=== PATIENT | female | born 1950 | race Caucasian/White ===

== ENCOUNTER 2022-10-28 07:05 | Emergency (ER) | payer MEDICARE, SELFPAY ==
[2022-10-28] VITALS (30 sets, daily range): BP systolic 142–188; BP diastolic 70–98; PULSE 75–135; RESP 12–68; TEMP 36.4; O2SAT 94–100; BMI 27.8
--- NOTE | 2022-10-28 07:54 | ECG_ITS ---
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
--- NOTE | 2022-10-28 07:57 | ED.GENADUL1 ---
HPI - General Adult General Chief complaint: Upper Respiratory Infection Stated complaint: CHEST PAIN/SOB Time Seen by Provider: 10/28/22 07:47 Source: patient Source information: patient Mode of arrival: walk-in Limitations: no limitations History of Present Illness HPI narrative: Patient is a 72-year-old female who is presenting to the Emergency Room today with chief complaint of cough, congestion, not feeling well since last Wednesday or Wednesday. Patient is a smoker, patient smokes one pack of cigarettes a day. Patient has a long-standing history of smoking 2 packs of cigarettes a day. Patient's PCP is in [place]. Patient son is at bedside. Pattient also has a history of anxiety, patient takes Xanax at nighttime, and just started taking Remeron during the day. Patient also has recently been prescribed inhaler from her PCP. Patient does not have a lung doctor. Patient was placed on 5 day course of steroids from approximate Wednesday until today, she took her last dose of steroids today. Patient has mild left-sided chest tightness, she believes is more muscle secondary to coughing. Patient has no sinus pressure, no headache. Patient has no neck pain. Patient has mild nausea from steroids this morning, patient had no vomiting. No diarrhea. No recent traveling. Patient does not wear oxygen at home. No other acute complaints. . All systems are negative except as noted/marked. All systems reviewed and otherwise negative. . Nurses note and vital signs reviewed and patient is not hypoxic. General: The patient appears well and in no apparent distress. Patient is resting comfortably on cart. Patient is not toxic, lethargic, or listless Skin: Warm, dry, no pallor noted. There is no rash noted. No petechiae, purpura. Head: Normocephalic, atraumatic Eye: Normal conjunctiva, no drainage, EOMI. PERRL Ears, Nose, Mouth, and Throat: oral mucosa is moist. Nares patent. Mouth without vesicles. Cardiovascular: Regular Rate and Rhythm, no murmur, gallop, rub Respiratory: Patient is in no distress, no accessory muscle use, lungs Decreased Bilateral, decreased breath sounds more on the left compared to the right. Diffuse wheezing, poor inspiratory effort bilateral. Back: non-tender, no CVA tenderness bilaterally to percussion. No CT LS midline pain GI: soft, no tenderness to palpation, no masses appreciated. No rebound, guarding, or rigidity noted. No flank pain bilateral, No distention Musculoskeletal: Patient has full range of motion of all of the extremities, no motor, sensory, or focal neurological deficits Neurological: A&O x3, normal speech Psychiatric: Cooperative Related Data Home Medications Medication Instructions Recorded Confirmed alprazolam 0.5 mg tablet 0.25 mg PO BID PRN anxiety 10/28/22 10/28/22 mirtazapine 15 mg tablet 15 mg PO BEDTIME 10/28/22 10/28/22 Previous Rx's Medication Instructions Recorded albuterol sulfate 90 mcg/actuation 2 inh inhalation Q4H PRN shortness 10/28/22 breath activated powder inhaler of breath or wheezing #1 ea benzonatate 100 mg capsule 100 mg PO TID PRN cough #21 caps 10/28/22 doxycycline hyclate 100 mg tablet 100 mg PO BID 10 days #20 tabs 10/28/22 Allergies Allergy/AdvReac Type Severity Reaction Status Date / Time codeine Allergy Intermediate Verified 10/28/22 07:44 PFSH PFSH Social History Smoking status: Current every day smoker Exam Constitutional Vital Signs, click to edit/add: Last Vital Signs Temp 97.5 F L 10/28/22 07:12 Pulse 110 H 10/28/22 11:20 Resp 15 10/28/22 11:20 BP 150/70 H 10/28/22 09:45 Pulse Ox 95 10/28/22 11:20 O2 Del Method Nasal Cannula 10/28/22 07:54 O2 Flow Rate 2 10/28/22 07:54 Course Vital Signs Vital signs: Vital Signs Temperature 97.5 F L 10/28/22 07:12 Pulse Rate 75 10/28/22 07:12 Respiratory Rate 16 10/28/22 07:12 Blood Pressure 188/98 H 10/28/22 07:12 Pulse Oximetry 95 10/28/22 07:12 Oxygen Delivery Method Room Air 10/28/22 07:12 Temperature 97.5 F L 10/28/22 07:12 Pulse Rate 110 H 10/28/22 11:20 Respiratory Rate 15 10/28/22 11:20 Blood Pressure 150/70 H 10/28/22 09:45 Pulse Oximetry 95 10/28/22 11:20 Oxygen Delivery Method Nasal Cannula 10/28/22 07:54 Oxygen Delivery Flow Rate 2 10/28/22 07:54 Medical Decision Making MDM Narrative Medical decision making narrative: Patient was initially given 2 DuoNeb times. Patient is breathing better now than what she was when she initially arrived. Patient was given a dose of Solu-Medrol and magnesium 2 g over 15 minutes. Patient just finished 5 day course of prednisone as well. Patient was due to have a CT of her chest on Wednesday, CTA chest was done today CT of the chest shows infectious versus inflammatory changes the right lower lobe, nothing acute, no PE. Patient's laboratory shows no acute changes. Patient felt better initially after 2 DuoNeb breathing treatments were given. Patient requested a prescription for Tessalon Perles, she was given a albuterol inhaler. Patient was also placed on doxycycline secondary to her age, being a smoker, and also having history of chronic obstructive pulmonary disease. Patient is on another type of inhaler, patient does not know when her son at bedside cannot find out what the name of it was. Patient understands importance of using inhaler every 4 hours. Patient may also have a metered steroid inhaler, this was prescribed by her PCP. No questions at discharge Lab Data Labs: Lab Results 10/28/22 Range/Units 07:20 WBC 8.6 (4.0-11.0) 10^3/uL RBC 5.40 (4.20-5.40) 10^6/uL Hgb 12.2 (12.0-16.0) g/dL Hct 39.2 (36.0-48.0) % MCV 72.6 L (81.0-99.0) fL MCH 22.6 L (26.7-34.0) pg MCHC 31.1 (29.9-35.2) g/dL RDW 16.3 H (11.0-15.0) % Plt Count 125 L (150-450) 10^3/uL MPV 10.9 (9.5-13.5) fL Neut % (Auto) 68.6 (43.0-75.0) % Lymph % (Auto) 19.8 L (20.5-60.0) % [place] % (Auto) 8.9 (1.7-12.0) % Eos % (Auto) 1.3 (0.9-7.0) % Baso % (Auto) 0.9 (0.2-2.0) % Neut # (Auto) 5.9 (1.4-6.5) 10^3/uL Lymph # (Auto) 1.7 (1.2-3.8) 10^3/uL [place] # (Auto) 0.8 (0.3-0.8) 10^3/uL Eos # (Auto) 0.1 (0.0-0.7) 10^3/uL Baso # (Auto) 0.1 (0.0-0.1) 10^3/uL Abs Immat Gran (auto) 0.04 H (0.00-0.03) 10^3/uL Imm/Tot Granulo (auto) 0.5 (0.0-0.5) % Sodium 137 (136-145) mmol/L Potassium 3.7 (3.5-5.1) mmol/L Chloride 102 (98-107) mmol/L Carbon Dioxide 29.0 (21.0-32.0) mmol/L Anion Gap 9.7 BUN 17.0 (7.0-18.0) mg/dL Creatinine 0.60 (0.55-1.02) mg/dL Est GFR ( Amer) >60 (>=60) Est GFR (Non-Af Amer) >60 (>=60) BUN/Creatinine Ratio 28.3 Glucose 107 H (74-106) mg/dL Calcium 8.6 (8.5-10.1) mg/dL Total Bilirubin 0.3 (0.2-1.0) mg/dL AST 61 H (15-37) U/L ALT 94 H (14-59) U/L Alkaline Phosphatase 148 H (46-116) U/L Troponin I High Sens 10.8 (4.0-51.3) pg/mL NT-Pro-B Natriuret Pep 234.0 (<=900.0) pg/mL Total Protein 7.6 (6.4-8.2) g/dL Albumin 3.4 (3.4-5.0) g/dL Globulin 4.2 g/dL Albumin/Globulin Ratio 0.8 SARS-CoV-2 (PCR) Negative (NEGATIVE) ECG Data Attestation: I personally reviewed and interpreted this ECG as follows: Interpretation: EKG interpretation. Sinus tachycardia at 108. Normal axis deviation. Sinus arrhythmia. QTC of 405. Affect noted secondary to breathing Discharge Plan Discharge Chief Complaint: Upper Respiratory Infection Clinical Impression: Upper respiratory infection, Tobacco abuse, COPD exacerbation, Bronchitis Patient Disposition: Home, Self-Care Condition: Fair Prescriptions / Home Meds: New albuterol sulfate 90 mcg/actuation aerosol powdr breath activated 2 inh inhalation Q4H PRN (Reason: shortness of breath or wheezing) Qty: 1 0RF benzonatate 100 mg capsule 100 mg PO TID PRN (Reason: cough) Qty: 21 0RF doxycycline hyclate 100 mg tablet 100 mg PO BID 10 Days Qty: 20 0RF No Action alprazolam 0.5 mg tablet 0.25 mg PO BID PRN (Reason: anxiety) mirtazapine 15 mg tablet 15 mg PO BEDTIME Instructions: How to Stop Smoking (ED), Upper Respiratory Infection (ED), Acute Bronchitis (ED), How to Use a Dry-Powder Inhaler (ED), COPD (Chronic Obstructive Pulmonary Disease) (ED), Chronic Bronchitis (ED) Additional Instructions: Patient is to use DayQuil, NyQuil, Flonase to help dry up sinuses. Use albuterol inhaler every 4 hours while awake. Start taking antibiotics Secondary to age, smoker, and length of symptoms for over a week. Follow-up with your PCP, you may need to be referred to lung specialist as well. Dr Jones Stand Alone Forms: Portal Instructions Referrals: Art Jones DO [Physician] - 1 week Physician,Non-Staff, MD [Primary Care Provider] - 1 week
[2022-10-28] MEDS: IPRATROPIUM/ALBUTEROL SULFATE 3 ML AMPUL.NEB 6 ML IH (08:02)
[2022-10-28 08:16] LABS: Basophils Absolute Auto 0.1 10^3/uL (0.0-0.1); Basophils Percent Auto 0.9 % (0.2-2.0); Eosinophils Absolute Auto 0.1 10^3/uL (0.0-0.7); Eosinophils Percent Auto 1.3 % (0.9-7.0); Hematocrit 39.2 % (36.0-48.0); Hemoglobin 12.2 g/dL (12.0-16.0); Immature Granulocytes Abs Auto 0.04 10^3/uL (0.00-0.03); Immature Granulocytes Pct Auto 0.5 % (0.0-0.5); Lymphocytes Absolute Auto 1.7 10^3/uL (1.2-3.8); Lymphocytes Percent Auto 19.8 % (20.5-60.0); Mean Corpuscular HGB Conc 31.1 g/dL (29.9-35.2); Mean Corpuscular Hemoglobin 22.6 pg (26.7-34.0); Mean Corpuscular Volume 72.6 fL (81.0-99.0); Mean Platelet Volume 10.9 fL (9.5-13.5); Monocytes Absolute Auto 0.8 10^3/uL (0.3-0.8); Monocytes Percent Auto 8.9 % (1.7-12.0); Neutrophils Absolute Auto 5.9 10^3/uL (1.4-6.5); Neutrophils Percent Auto 68.6 % (43.0-75.0); Platelet Count 125 10^3/uL (150-450); Red Cell Distribution Width 16.3 % (11.0-15.0); White Blood Count 8.6 10^3/uL (4.0-11.0)
[2022-10-28] MEDS: ASPIRIN 81 MG TAB.CHEW 162 MG PO (08:21)
[2022-10-28] MEDS: KETOROLAC TROMETHAMINE 30 MG/ML VIAL 15 MG IVP (08:22)
[2022-10-28] MEDS: METHYLPREDNISOLONE SOD SUCC PF 125 MG/2 ML VIAL IVP (08:22)
[2022-10-28] MEDS: ONDANSETRON PF 4 MG/2 ML VIAL IV (08:22)
[2022-10-28] MEDS: 0.9 % SODIUM CHLORIDE 1,000 ML 999 ML IV (08:24)
[2022-10-28 08:38] LABS: Alanine Aminotransferase 94 U/L (14-59); Albumin Globulin Ratio 0.8; Albumin Level 3.4 g/dL (3.4-5.0); Alkaline Phosphatase 148 U/L (46-116); Anion Gap 9.7; Aspartate Amino Transferase 61 U/L (15-37); BUN Creatinine Ratio 28.3; Bilirubin Total 0.3 mg/dL (0.2-1.0); Calcium 8.6 mg/dL (8.5-10.1); Chloride 102 mmol/L (98-107); Estimated GFR (African America >60 (>=60); Estimated GFR (Non-African Ame >60 (>=60); Globulin 4.2 g/dL; Glucose 107 mg/dL (74-106); Potassium 3.7 mmol/L (3.5-5.1); Sodium 137 mmol/L (136-145); Total Protein 7.6 g/dL (6.4-8.2); Troponin I High Sensitivity 10.8 pg/mL (4.0-51.3)
[2022-10-28 09:10] LABS: SARS-CoV-2 Ag NEGATIVE (NEGATIVE)
--- NOTE | 2022-10-28 09:10 | CT_ITS ---
The [address] [address] Patient Name: TORIE ERVIN MRN: [id number] date: 1950 Sex: F Assigned Patient Location: ER Current Patient Location: ER Accession/Order Number: [id number] Exam Date: 10/28/2022 08:58 Report Date: 10/28/2022 09:36 At the request of: MARQUITA ESTRADA Procedure: CT angio chest CT angio chest, 10/28/2022 8:58 AM EDT INDICATION: Dyspnea. COMPARISON: Radiograph of the chest 07/01/2021, CT angiography of the chest 01/24/2016 TECHNIQUE: Axial images of the chest were obtained with administration of IV contrast. Multiplanar reformatted, MIP and 3D images were generated and reviewed as needed. Dose reduction techniques were achieved by using automated exposure control and/or adjustment of mA and/or kV according to patient size and/or use of iterative reconstruction technique. FINDINGS: Heart size within normal limits. RV/LV ratio normal. No pericardial effusion. No aortic aneurysm or dissection. No filling defect within the pulmonary arteries. The great vessels are unremarkable. No mediastinal, hilar or axillary lymphadenopathy. Diffuse bronchial wall thickening with scattered areas of subsegmental atelectasis bilaterally with increased conspicuity in the right upper lobe. Mosaic attenuation with subpleural consolidation at the right lung base. No pleural effusion. No pneumothorax. Small sliding hiatal hernia. The spleen is 14 cm in AP dimension, previously 16.3 cm. The visualized upper abdomen is otherwise grossly unremarkable. No acute fracture or dislocation. CT/CT angio chest IMPRESSION: 1. No pulmonary embolism. 2. Infectious versus inflammatory bronchiolitis with findings of reactive airway disease within the right lower lobe. 3. Interval improvement in splenomegaly. Electronically authenticated by: DAGO LOZADA Date: 10/28/2022 09:36
[2022-10-28] MEDS: LORAZEPAM 2 MG/ML 1 ML VIAL 1 MG IV (10:13)
[2022-10-28 15:53] LABS: SARS-CoV-2 NAA NOT DETECTED (NOT DETECTE)
== END 2022-10-28 11:41 | disposition home or self-care (01) ==
PROVIDERS: Emergency Provider Emergency Medicine
DX: J44.1 Chronic obstructive pulmonary disease with (acute) exacerbation (principal); J06.9 Acute upper respiratory infection, unspecified; F17.210 Nicotine dependence, cigarettes, uncomplicated; R06.2 Wheezing; F41.9 Anxiety disorder, unspecified; Z79.899 Other long term (current) drug therapy; Z20.822 Contact with and (suspected) exposure to COVID-19
CPT/HCPCS: 36415; 71275; 80053; 83880; 84484; 85025; 87635; 87811; 93005; 94640; 96365; 96375; 99285; 99406; J2930; Q9967

== ENCOUNTER 2023-02-19 21:48 | Emergency (ER) | payer MEDICARE, SELFPAY ==
[2023-02-19 22:04] VITALS: BP 188/92; PULSE 92; RESP 20; TEMP 36.7; O2SAT 97; BMI 27.7
--- NOTE | 2023-02-19 22:59 | ECG_ITS ---
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
--- NOTE | 2023-02-19 23:01 | ED_ITS ---
HPI - General Adult General Chief complaint: Dizziness Stated complaint: BACK PAIN, JAW PAIN, DIZZINESS Time Seen by Provider: 02/19/23 22:00 Source: patient Mode of arrival: walk-in Limitations: no limitations History of Present Illness HPI narrative: Patient woke with imbalance and the sensation of spinning. She said that is has waxed and waned today. She also had an episode around 1 or 2pm that lasted about 30 minutes consisting of pain in the upper abdomen, pain in both sides of the jaw and nausea. She did not vomit and denied chest pain, pressure or tightness and denied shortness of breath. No fever or chills. No flank pain or urinary symptoms. she told me that she had previously experienced dizziness and vertigo-type symptoms. She said that she had extensive workup and was told it was from her anxiety and not from vertigo. On the other hand, she told me that when she is coming to Hospital the past and received antivertigo medication the symptoms have improved. I presume she is talking about meclizine. Related Data Home Medications Medication Instructions Recorded Confirmed alprazolam 0.5 mg tablet 0.25 mg PO BID PRN anxiety 10/28/22 02/19/23 mirtazapine 15 mg tablet 15 mg PO BEDTIME 10/28/22 02/19/23 Previous Rx's Medication Instructions Recorded meclizine 25 mg tablet 25 mg PO TID PRN dizziness #20 tabs 02/19/23 ondansetron 4 mg disintegrating 4 mg PO Q6H PRN nausea and 02/19/23 tablet vomiting #20 tabs Allergies Allergy/AdvReac Type Severity Reaction Status Date / Time codeine Allergy Intermediate Verified 10/28/22 07:44 PFSH PFS Social History Smoking status: Current every day smoker Exam Narrative Exam Narrative: Nurses notes and vital signs reviewed and patient is not hypoxic. afebrile General: Well-appearing and in no apparent distress. Skin: Warm, dry, no pallor noted. Head: Normocephalic, atraumatic. Neck: Supple, non-tender. Eye: Pupils are equal, round and EOMI. No scleral icterus. no nystagmus. Ears, Nose, Mouth, and Throat: TM are clear, no nasal mucosal hypertrophy. Oral mucosa is moist, no posterior oropharynx erythema, uvula is mid-line Cardiovascular: Regular Rate and Rhythm without murmur, gallop or rub. Respiratory: No accessory muscle use or respiratory distress. Lungs are clear to auscultation, no wheezing, rales or rhonchi Back: No CVA tenderness Musculoskeletal: normal ROM, no calf or popliteal tenderness, no lower extremity edema/swelling GI: Abdomen is soft, non-distended. Normal bowel sounds. No masses appreciated. No tenderness to palpation. No rebound, guarding, or rigidity noted. Neurological: A&O x4. No cranial nerve dysfunction observed. No truncal at axia. Moves all extremities. Sensation intact. Psychiatric: Cooperative and interactive. Normal mood and affect. Constitutional Vital Signs, click to edit/add: Last Vital Signs Temp 98.1 F 02/19/23 22:04 Pulse 92 H 02/19/23 22:04 Resp 20 02/19/23 22:04 BP 188/92 H 02/19/23 22:04 Pulse Ox 97 02/19/23 22:04 O2 Del Method Room Air 02/19/23 22:04 Course Vital Signs Vital signs: Vital Signs Temperature 98.1 F 02/19/23 22:04 Pulse Rate 92 H 02/19/23 22:04 Respiratory Rate 20 02/19/23 22:04 Blood Pressure 188/92 H 02/19/23 22:04 Pulse Oximetry 97 02/19/23 22:04 Oxygen Delivery Method Room Air 02/19/23 22:04 Temperature 98.1 F 02/19/23 22:04 Pulse Rate 92 H 02/19/23 22:04 Respiratory Rate 20 02/19/23 22:04 Blood Pressure 188/92 H 02/19/23 22:04 Pulse Oximetry 97 02/19/23 22:04 Oxygen Delivery Method Room Air 02/19/23 22:04 Medical Decision Making MDM Narrative Medical decision making narrative: Patient was placed on cardiac cath lab radiology technologist and EKG obtained. Blood drawn and sent for evaluation. urine also obtained sent for testing. she was given meclizine and Zofran in the emergency department. Normal WBC, Hb slightly decreased at 10 compared with 12 on prior testing. UA negative. Slightly elevated AST and AP with normal bili, normal renal function. K slightly decreased at 3.3 - patient give oral potassium. Troponin negative. EKG without worrisome findings. Patient felt better after ED treatment and was discharged home with prescriptions for meclizine and zofran in case the symptoms returned.. Lab Data Lab results reviewed: Yes I reviewed the patient's lab results Labs: Lab Results 02/19/23 02/19/23 Range/Units 22:16 22:40 WBC 4.9 (4.0-11.0) 10^3/uL RBC 4.75 (4.20-5.40) 10^6/uL Hgb 10.8 L (12.0-16.0) g/dL Hct 36.3 (36.0-48.0) % MCV 76.4 L (81.0-99.0) fL MCH 22.7 L (26.7-34.0) pg MCHC 29.8 L (29.9-35.2) g/dL RDW 15.9 H (11.0-15.0) % Plt Count 167 (150-450) 10^3/uL MPV 10.4 (9.5-13.5) fL Neut % (Auto) 52.8 (43.0-75.0) % Lymph % (Auto) 28.4 (20.5-60.0) % [place] % (Auto) 13.7 H (1.7-12.0) % Eos % (Auto) 3.7 (0.9-7.0) % Baso % (Auto) 1.2 (0.2-2.0) % Neut # (Auto) 2.6 (1.4-6.5) 10^3/uL Lymph # (Auto) 1.4 (1.2-3.8) 10^3/uL [place] # (Auto) 0.7 (0.3-0.8) 10^3/uL Eos # (Auto) 0.2 (0.0-0.7) 10^3/uL Baso # (Auto) 0.1 (0.0-0.1) 10^3/uL Abs Immat Gran (auto) 0.01 (0.00-0.03) 10^3/uL Imm/Tot Granulo (auto) 0.2 (0.0-0.5) % Sodium 140 (136-145) mmol/L Potassium 3.3 L (3.5-5.1) mmol/L Chloride 105 (98-107) mmol/L Carbon Dioxide 31.5 (21.0-32.0) mmol/L Anion Gap 6.8 BUN 7.0 (7.0-18.0) mg/dL Creatinine 0.74 (0.55-1.02) mg/dL Est GFR ( Amer) >60 (>=60) Est GFR (Non-Af Amer) >60 (>=60) BUN/Creatinine Ratio 9.5 Glucose 106 (74-106) mg/dL Calcium 8.5 (8.5-10.1) mg/dL Total Bilirubin 0.3 (0.2-1.0) mg/dL AST 43 H (15-37) U/L ALT 36 (14-59) U/L Alkaline Phosphatase 154 H (46-116) U/L Troponin I High Sens 14.6 (4.0-51.3) pg/mL Total Protein 7.3 (6.4-8.2) g/dL Albumin 3.2 L (3.4-5.0) g/dL Globulin 4.1 g/dL Albumin/Globulin Ratio 0.8 Urine Color Lt. yellow (YELLOW) Urine Clarity Clear (CLEAR) Urine pH 6.5 (5.0-9.0) Ur Specific [place] <=1.005 A (1.005-1.025) Urine Protein Negative (NEG/TRACE) mg/dL Urine Glucose (UA) Negative (NEGATIVE) mg/dL Urine Ketones Negative (NEGATIVE) mg/dL Urine Occult Blood Negative (NEGATIVE) Urine Nitrite Negative (NEGATIVE) Urine Bilirubin Negative (NEGATIVE) Urine Urobilinogen 0.2 (0.2-1.0) EU/dL Ur Leukocyte Esterase Negative (NEGATIVE) ECG Data Attestation: I personally reviewed and interpreted this ECG as follows: Interpretation: EKG interpretation: Emergency Department physician interpretation. Normal sinus rhythm at 89bpm. Normal axis, normal intervals and no ST segment elevation or depression. Discharge Plan Discharge Chief Complaint: Dizziness Clinical Impression: Dizziness, Acute hypokalemia Patient Disposition: Home, Self-Care Time of Disposition Decision: 23:43 Prescriptions / Home Meds: New ondansetron 4 mg tablet,disintegrating 4 mg PO Q6H PRN (Reason: nausea and vomiting) Qty: 20 0RF meclizine 25 mg tablet 25 mg PO TID PRN (Reason: dizziness) Qty: 20 0RF No Action alprazolam 0.5 mg tablet 0.25 mg PO BID PRN (Reason: anxiety) mirtazapine 15 mg tablet 15 mg PO BEDTIME Instructions: Hypokalemia (ED), Dizziness (ED) Stand Alone Forms: Portal Instructions Referrals: Physician,Non-Staff, MD [Primary Care Provider] - 1 week Discharge Date/Time: 02/20/23 00:02
[2023-02-19] MEDS: ONDANSETRON 4 MG RAPDIS TABLET SL (23:09)
[2023-02-19] MEDS: MECLIZINE HCL 12.5 MG TABLET 25 MG PO (23:09)
[2023-02-19 23:11] LABS: Bilirubin Urine NEGATIVE (NEGATIVE); Blood Urine NEGATIVE (NEGATIVE); Clarity Urine CLEAR (CLEAR); Color Urine LT. YELLOW (YELLOW); Glucose Urine UA NEGATIVE (NEGATIVE); Ketones Urine NEGATIVE (NEGATIVE); Leukocyte Esterase Urine NEGATIVE (NEGATIVE); Nitrite Urine NEGATIVE (NEGATIVE); Protein Urine NEGATIVE (NEG/TRACE); Specific Gravity Urine <=1.005 (1.005-1.025); Urobilinogen Urine 0.2 EU/dL (0.2-1.0); pH Urine 6.5 (5.0-9.0)
[2023-02-19 23:11] LABS: Basophils Absolute Auto 0.1 10^3/uL (0.0-0.1); Basophils Percent Auto 1.2 % (0.2-2.0); Eosinophils Absolute Auto 0.2 10^3/uL (0.0-0.7); Eosinophils Percent Auto 3.7 % (0.9-7.0); Hematocrit 36.3 % (36.0-48.0); Hemoglobin 10.8 g/dL (12.0-16.0); Immature Granulocytes Abs Auto 0.01 10^3/uL (0.00-0.03); Immature Granulocytes Pct Auto 0.2 % (0.0-0.5); Lymphocytes Absolute Auto 1.4 10^3/uL (1.2-3.8); Lymphocytes Percent Auto 28.4 % (20.5-60.0); Mean Corpuscular HGB Conc 29.8 g/dL (29.9-35.2); Mean Corpuscular Hemoglobin 22.7 pg (26.7-34.0); Mean Corpuscular Volume 76.4 fL (81.0-99.0); Mean Platelet Volume 10.4 fL (9.5-13.5); Monocytes Absolute Auto 0.7 10^3/uL (0.3-0.8); Monocytes Percent Auto 13.7 % (1.7-12.0); Neutrophils Absolute Auto 2.6 10^3/uL (1.4-6.5); Neutrophils Percent Auto 52.8 % (43.0-75.0); Platelet Count 167 10^3/uL (150-450); Red Blood Count 4.75 10^6/uL (4.20-5.40); Red Cell Distribution Width 15.9 % (11.0-15.0); White Blood Count 4.9 10^3/uL (4.0-11.0)
[2023-02-19 23:14] LABS: Urine Microscopic Indicated NO
[2023-02-19 23:25] LABS: Alanine Aminotransferase 36 U/L (14-59); Albumin Globulin Ratio 0.8; Albumin Level 3.2 g/dL (3.4-5.0); Alkaline Phosphatase 154 U/L (46-116); Anion Gap 6.8; Aspartate Amino Transferase 43 U/L (15-37); BUN Creatinine Ratio 9.5; Bilirubin Total 0.3 mg/dL (0.2-1.0); Calcium 8.5 mg/dL (8.5-10.1); Carbon Dioxide 31.5 mmol/L (21.0-32.0); Chloride 105 mmol/L (98-107); Estimated GFR (African America >60 (>=60); Estimated GFR (Non-African Ame >60 (>=60); Globulin 4.1 g/dL; Glucose 106 mg/dL (74-106); Potassium 3.3 mmol/L (3.5-5.1); Sodium 140 mmol/L (136-145); Total Protein 7.3 g/dL (6.4-8.2)
[2023-02-19 23:28] LABS: Troponin I High Sensitivity 14.6 pg/mL (4.0-51.3)
[2023-02-19] MEDS: POTASSIUM CHLORIDE 10 MEQ ER TABLET 40 MEQ PO (23:52)
== END 2023-02-20 00:02 | disposition home or self-care (01) ==
PROVIDERS: Emergency Provider Emergency Medicine
DX: R42 Dizziness and giddiness (principal); E87.6 Hypokalemia; Z79.899 Other long term (current) drug therapy; F17.210 Nicotine dependence, cigarettes, uncomplicated
CPT/HCPCS: 36415; 80053; 81003; 84484; 85025; 93005; 99284

== ENCOUNTER 2023-05-10 21:17 | Emergency (ER) | payer MEDICARE, SELFPAY ==
--- OUTSIDE RECORDS SUMMARY | 2023-05-10 21:22 | XMS_ITS | CCD ---
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 Name Role Phone Heather Nunez Unavailable MIKE DEJESUS Primary Care Physician [facility] [place] [place] Primary Care Unavailable ORIANA DELGADO Attending Unavailable ORIANA DELGADO Consulting Unavailable ORIANA DELGADO Admitting Unavailable FRANCIS HOLDEN Admitting Unavailable MIREYA, DR ATWOOD Primary Care Unavailable FRANCIS HOLDEN Attending Unavailable FRANCIS HOLDEN Consulting Unavailable Tonya Bundy Attending Unavailable TATIANNA Amezquita Attending Provider DO Mike Dejesus Primary Care Provider [phone] DO Mike Dejesus Attending Provider MIKE DEJESUS Attending Unavailable MIKE DEJESUS Referring Unavailable MIKE DEJESUS Referring Unavailable RITCHIE AMEZQUITA Attending Unava ilable Mike Dejesus Admitting Unavailable Mike Dejesus Primary Care Unavailable Mike Dejesus Attending Unavailable Mike Dejesus Primary Care Unavailable Ric eKrr Admitting Unavailab Ric Hernandez Attending Unavailab Mike Fajardo Primary Care Unavailable Ritchie Amezquita Admitting Unavail able Ritchie Amezquita Attending Unavail able Milla Skinner Unavailable Allergies Allergy Classification Reported Allergen(s) Allergy Type Date of Onset Reaction(s) Facility (6 sources) Codeine; Translations: [codeine] Drug Allergy stomach upset, unknown [facility] (1 source) Codeine Drug Allergy 0 [facility] (1 source) Codeine Drug Allergy 2 [facility] Medications Current Medications Medication Drug Class(es) Dates Sig (Normalized) Sig (Original) ALPRAZolam 0.25 mg oral tablet (5 sources) Benzodiazepine Start: 10-02-2021 take 1 tablet by mouth every twelve hours ALPRAZolam 0.25 MG 1 tablet Orally Twice a day for 15 days f41.1 Sep, Active Start: 03-01-2019 Xanax Oral, Re fills(s) 0 Start Date: 03/01/19 Status: Ordered amLODIPine 5 mg oral tablet (1 source) Dihydropyridine Calcium Channel Heraclio take 1 tablet by mouth every twenty-four hours amLODIPine Besylate 5 MG 1 tablet Orally Once a day Active hydrOXYzine (6 sources) Antihistamine Start: 020 hydrOXYzine pamoate Oral, QID, Refills(s) 0 Start Date: 08/15/19 Status: Ordered Start: 03-01-2019 hydrOXYzine Re fills(s) 0 Start Date: 03/01/19 Status: Ordered take 1 capsule by [facility] every eight hours hydrOXYzine Pamoate 50 MG 1 capsule as needed Orally every 8 hrs for 90 Active lidocaine 0.05 mg/mg medicated patch (1 source) Antiarrhythmic, Amide Local Anesthetic Start: 05-07-2023 Lidocaine 5 % 1 patch remove after 12 hours Externally Once a day for 7 days Apr, Active methylPREDNISolone 4 mg oral tablet (1 source) Corticosteroid Start: 05-07-2023 methylPREDNISolone 4 MG as directed Orally for 6 Apr, Active mirtazapine 15 mg oral tablet (5 sources) Start: 09-02-2022 mirtazapine 15 mg Tab Refills(s) 0 Start Date: 09/02/22 Status: Ordered tiZANidine 4 mg oral tablet (1 source) Central alpha-2 Adrenergic Agonist Start: 05-07-2023 tiZANidine HCl 4 MG 1 tablet as needed Orally at bedtime for 7 days Apr, Active Vitamin B Complex oral capsule (1 source) Start: 03-01-2019 take 1 capsule by mouth once daily Vitamin B Complex oral capsule 1 cap(s), Oral, Daily Start Date: 03/01/19 Status: Ordered vitamin b12 0.5 mg oral tablet (1 source) Vitamin B12 take 1 tablet by mouth every twenty-fou r hours Vitamin B12 500 MCG 1 tablet Orally Once a day Active Vitamin B12 500 MCG (3 sources) take 1 tablet by mouth once daily Vitamin B12 500 MCG 1 tablet Orally Once a day Active Vitamin D (1 source) Start: 03-01-2019 Vitamin D Oral, Refills(s) 0 Start Date: 03/01/19 Status: Ordered Vitamin D 1000 UNIT (4 sources) take 2 tablets by mouth once daily Vitamin D 1000 UNIT 2 tablets Orally Once a day Active Completed/Discontinued Medications Medication Drug Class(es) Dates Sig (Normalized) Sig (Original) ciprofloxacin 500 mg oral tablet (4 sources) Quinolone Antimicrobial Start: 10-07-2021 take 1 tablet by mouth every twelve hours Cipro 500 MG 1 tablet Orally every 12 hrs for 5 day(s) Sep, Not-Taking/PRN Toradol 30 mg/ml (1 source) Start: 05-07-2023 Toradol 30 mg/ml Apr, 30 mg triamcinolone acetonide 40 mg/ml injectable suspension (1 source) Corticosteroid Start: 05-07-2023 Kenalog-40 Apr, 40 mg Problems Active Problems Problem Classification Problem Date Documented Date Episodic/Chronic Anxiety disorders (10 sources) Generalized anxiety disorder; Translations: [Generalized anxiety disorder] Onset: 12-09-2021 03-01-2019 Chronic Asthma (1 source) Asthma 03-01-2019 Chronic Calculus of urinary tract (2 sources) Kidney stone; Translations: [Calculus of kidney] Onset: 09-01-2022 Episodic Cardiac dysrhythmias (1 source) Palpitations; Translations: [Palpitations] Onset: 04-08-2023 Episodic Chronic obstructive pulmonary disease and bronchiectasis (4 sources) Chronic obstructive lung disease; Translations: [Chronic obstructive pulmonary disease, unspecified] Chronic Disorders of lipid metabolism (1 source) Hyperlipidemia 03-01-2019 Chronic Genitourinary congenital anomalies (4 sources) Congenital pelviureteric junction obstruction; 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] Onset: 09-01-2022 Chronic Genitourinary symptoms and ill-defined conditions (10 sources) Dysuria; Translations: [Hematuria, unspecified] Onset: 10-07-2021 Resolved: 10-07-2021 Episodic Mood disorders (4 sources) Recurrent major depressive episodes, moderate ; Translations: [Major depressive disorder, recurrent, moderate] Chronic Nutritional deficiencies (1 source) Vitamin D deficiency 03-01-2019 Chronic Nutritional deficiencies (1 source) Vitamin B deficiency 03-01-2019 Episodic Osteoarthritis (1 source) Arthritis 03-01-2019 Chronic Other diseases of kidney and ureters (1 source) Cyst of kidney 03-01-2019 Episodic Other diseases of kidney and ureters (1 source) Hydronephrosis 09-01-2022 Episodic Other diseases of kidney and ureters (1 source) Obstruction of pelviureteric junction 03-01-2019 Episodic Other diseases of kidney and ureters (1 source) Stricture of ureter 08-15-2019 Episodic Other inflammatory condition of skin (1 source) Psoriasis 03-01-2019 Chronic Other screening for suspected conditions (not mental disorders or infectious disease) (4 sources) Radiology result abnormal; Translations: [Abnormal findings on diagnostic imaging of other specified body structures] Episodic Peripheral and visceral atherosclerosis (2 sources) Arteriosclerotic vascular disease; Translations: [Generalized atherosclerosis] Onset: 03-08-2023 03-01-2019 Chronic Residual codes; unclassified (4 sources) Tobacco dependence syndrome; Translations: [Tobacco use] Episodic Sprains and strains (1 source) Strain of muscle, fascia and tendon of lower back, initial encounter Episodic Substance-related disorders (2 sources) Smoker; Translations: [Nicotine dependence, cigarettes, uncomplicated] Onset: 12-09-2021 08-15-2019 Chronic Past or Other Problems Problem Classification Problem Date Documented Da te Episodic/Chronic Conditions associated with dizziness or vertigo (3 sources) Dizziness and giddiness; Translations: [DIZZINESS AND GIDDINESS] Onset: 12-07-2021 Episodic Fever of unknown origin (3 sources) Fever, unspecified Onset: 10-07-2021 Resolved: 10-07-2021 Episodic Other aftercare (1 source) Other terminal gauger (current) drug therapy; Translations: [OTH NURSING HOME CURRENT DRUG THERAPY] Onset: 12-09-2021 Episodic Urinary tract infections (3 sources) Urinary tract infection, site not specified Onset: 10-07-2021 Resolved: 10-07-2021 Episodic Results Test Name Value Interpretation Reference Range Facility [facility] echo transthoracic [facility] Main [place] [address] [place] [address] Echocardiogram Signed Patient: Christal Ervin MR#: [id number] : 1950 Acct:[id number] Age/Sex: 72 / F ADM Date: 04/08/23 Loc: Room: Type: [facility] Attending Dr: Mike Dejesus DO Ordering Provider: Mike Dejesus DO Date of Service: 04/08/23/ [facility] echo transthoracic: PALPITATIONS Copies to: MD Mike Ortega DO BSA: 1.8 m2 BP: 158/81 mmHg HR: 81 Reason For Study: PALPITATIONS History: Smoker, COPD, COVID Interpretation Summary Ejection Fraction = 55-60%. The left ventricular wall motion is normal. Mild concentric left ventricular hypertrophy. There is no comparison study available. Procedure/Quality: A two-dimensional transthoracic echocardiogram with color flow and Doppler was performed. Left Ventricle: The left ventricular size is normal. Mild concentric left ventricular hypertrophy. Ejection Fraction = 55-60%. A variety of Doppler measurements indicate normal left ventricular diastolic function. The left ventricular wall motion is normal. Left Atrium: The left atrium appears normal in size. Right Atrium: The right atrium appears normal in size. Right Ventricle: The right ventricle is normal in size and function. Aortic Valve: The aortic valve is normal in structure and function. The aortic valve is trileaflet. No hemodynamically significant valvular aortic stenosis. No aortic regurgitation is present. Mitral Valve: The mitral valve is normal in structure and function. There is no mitral regurgitation noted. Tricuspid Valve: The tricuspid valve is normal in structure and function. No tricuspid regurgitation. Pulmonic Valve: The pulmonic valve is not well seen, but is grossly normal. There is no pulmonic valve regurgitation. Arteries: The aortic root is normal size. Pericardium/Pleura: No pericardial effusion seen. There is no pleural effusion. IVC/Hepatic Veins: The inferior vena cava is normal in size, with a normal collapsibility index. Measurements with Normals IVSd: 1.3 cm (0.7-1.1 cm)LVIDd: 3.9 cm (3.7-5.4 cm) LVPWd: 1.2 cm (0.7-1.1 cm)LVIDs: 2.3 cm (2.3-3.6 cm) LA dimension: 4.4 cm (2.3-4.0 cm)Ao root diam: 3.0 cm(2.0-3.6 cm) asc Aorta Diam: 3.3 cm(2.1-3.4cm) Doppler with Normals RVSP(TR): 19.4 mmHg (18-35mmHg) LV V1 max: 91.9 cm/sec (0.7-1.7m/s)MV E max scot: 88.1 cm/sec(0.8-1.3m/s) MV A max scot: 127.4 cm/sec(0.0-0.0m/s) MV E/A: 0.69 (<1.5) MMode/2D Measurements Calculations RVDd: 3.0 cm FS: 41.4 % Ao root area: LVOT diam: 2.0 cm TAPSE: 1.8 cm EDV(Teich): 7.1 cm2 LVOT area: 3.1 cm2 RV S Scot: 66.7 ml 16.3 cm/sec ESV(Teich): 18.1 ml EF(Teich): 72.9 % __ LVLd ap4: 6.4 cm SV(MOD-sp4): LAV(MOD-sp4): LA A2 area: 14.6 cm2 EDV(MOD-sp4): 37.5 ml 30.2 ml 55.5 ml LAV(MOD-sp2): LA A4 area: 12.6 cm2 LVLs ap4: 5.6 cm 37.5 ml LA length (vol): ESV(MOD-sp4): 4.2 cm 18.0 ml LA vol: 37.6 ml EF(MOD-sp4): 67.6 % LA vol index: 21.0 ml/m2 Doppler Measurements Calculations E/E' lat: 6.7 Ao V2 max: LV V1 max PG: TV max PG: E/E' med: 8.3 148.4 cm/sec 3.4 mmHg 14.0 mmHg Ao max P.8 mmHg LV V1 mean PG: Ao mean P.4 mmHg1.8 mmHg Ao V2 mean: LV V1 mean: 110.2 cm/sec 62.7 cm/sec Ao V2 VTI: 29.7 cm LV V1 VTI: 21.8 cm PO(I,D): 2.2 cm2 PO(V,D): 1.9 cm2 __ TR max scot: 189.4 cm/sec TR max P.4 mmHg RAP systole: 5.0 mmHg Transcribed By: ISH Performed At: 04/08/23 1045 Signed By: Martin Mcnulty MD 04/08/23 1646 [facility]2023 [place] [address] Holter Monitor Report Signed Patient: Christal Ervin MR#: [id number] 466 : 1950 Acct:[id number] Age/Sex: 72 / F ADM Date: 03/08/23 Loc: Room: Type: [facility] Attending Dr: Ritchie CAMPUZANO Copies to: Ritchie Hauser MD Ordering Provider: Ritchie CAMPUZANO Date of Service: 03/08/23 [place] holter monitor recording: i70.91, h81.4 ORDERING: TATIANNA Penaloza CLINICAL INFORMATION: Dizziness and/or vertigo. The patient underwent 48-hour Holter monitoring for complaints of vertigo. The following observations were made: 1. Rhythm is sinus with heart rates ranging between 65 and 132 beats per minute. The average heart rate was 95 beats per minute. The longest pause was 1.2 seconds. 2. There were 47 ventricular ectopic beats noted. These were predominantly isolated beats. There were 2 couplets. 3. There were 1156 supraventricular ectopic beats noted. These were predominantly isolated beats, although there were 8 couplets and 3 runs of SVT, each 3 beats in length at rates up to 160 beats per minute. 4. The patient had complaints on 4 occasions. Complaints included dizziness, shortness of breath. Review of rhythm strips associated with these complaints demonstrated a sinus mechanism with heart rates ranging between 79-110 beats per minute. There were no other observations. Transcribed By: RADHA 03/11/232221 Dictated By: Telly Hauser MD 03/11/23 1726 Signed By: 03/13/23 1239 [facility] Reminderson 03-02-2023 Reminders - From: Jackie Zarate To: GISELLE Bundy; Sent: 09/02/2022 12:11:05 EDT Show up: 12/03/2022 12:10:00 EDT Subject: Call pt for decision on renal scan Due Date/Time: 12/03/2022 12:10:00 EDT Please call pt to see if she would like to proceed with NM renal scan with flow with pharm if she has not called yet with her decision. Called pt no answer and unable to leave VM due to mailbox being full Called pt and no answer unable to leave VM due to mailbox being full. Please advise. - From: Rebecca Mata (GISELLE - Michael Bundy) To: Tonya Bundy MD; Sent: 01/11/2023 09:27:06 EDT Show up: 01/11/2023 09:26:00 EDT Subject: RE: Call pt for decision on renal scan - From: Tonya Bundy MD To: Milla Odonnell; Sent: 01/11/2023 11:40:18 EDT Show up: 01/11/2023 11:40:00 EDT Subject: RE: Call pt for decision on renal scan Please send certified letter stating not responsible for potential complications of current condition including renal failure if she does not follow-up. Thanks, KML certified letter prepared and mailed to patient I spoke with patient today, She's currently recovering from Covid and does have some testing scheduled in March to test for Menears disease. Currently with her symptoms she cannot withstand a 45 min renal scan test. Once she completes testing next month she will have a better understanding/Treatm ent plan for potential menears disease and may proceed with Renal Scan. I told patient we would check back with her end of March/Early april for update and possibly schedule the renal scan. - From: Milla Odonnell To: GISELLE Bundy; Sent: 03/02/2023 14:12:42 EST ! 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 It was recommended that you follow up with me and complete a Renal scan so that I may conclude your treatment. My office tried contacting you on 01/04/23 and 01/11/23 to schedule above testing and we have not received a response. Please contact my office at your earliest convenience and we will schedule your testing so I can closely monitor your condition. I cannot be responsible for your urologic care if you do not follow up as recommended. Non compliance may result in dismissal from the practice. Thank you for your prompt attention to this matter. Sincerely, Tonya Bundy M.D. [facility] [address] [address] Normal [facility] RAD - Ultrasound Reporton RAD - Ultrasound Report [id number] Normal [facility] Ambulatory Visit Summaryon 0 09-02-2022 Ambulatory Visit Summary CHRISTAL ERVIN :1950 Visit Date:09/02/2022 Ambulatory Visit Instructions Your Diagnosis Congenital occlusion of ureteropelvic junction (UPJ), Hydronephrosis with ureteropelvic junction obstruction Nephrolithiasis History of UTI Tests Performed Urnls Dip Stick Auto w/o Microscopy POC 10774 Your Care Team Attending Physician - Tonya Bundy MD Primary Care Physician - MIKE DEJESUS DO This Is Your Medications List Contact prescribing physician if questions or concerns alprazolam (Xanax) ergocalciferol (Vitamin D) hydrOXYzine hydrOXYzine (hydrOXYzine pamoate) mirtazapine (mirtazapine 15 mg Tab) multivitamin (Vitamin B Complex oral capsule) Procedures Performed Cysto, UD, B/L RG (05/23/2013), Bladder Sling, Cholecystectomy, Hysterectomy, Knee, Lumbar. Discharge Vitals Heart Rate (Peripheral) 100 Blood Pressure 150/83 Height 162 cm Height 64 in Weight 74.5 kg Weight 163.9 lb BMI 28.39 What to do next You Need to Schedule the Following Appointments Follow Up with Gregor ULIS, Tonya Vo, URL, URO When: Where: Medications What How Much When Instructions Unchanged alprazolam (Xanax) By Mouth Contact prescribing physician if questions or concerns Unchanged ergocalciferol (Vitamin D) By Mouth Contact prescribing physician if questions or concerns Unchanged hydrOXYzine Contact prescribing physician if questions or concerns Unchanged hydrOXYzine (hydrOXYzine pamoate) By Mouth 4 times a day Contact prescribing physician if questions or concerns Unchanged mirtazapine (mirtazapine 15 mg Tab) Contact prescribing physician if questions or concerns Unchanged multivitamin (Vitamin B Complex oral capsule) 1 Capsules By Mouth Every day Contact prescribing physician if questions or concerns Test Results Urnls Dip Stick Auto w/o Microscopy POC 95184 (09/02/2022) Bilirubin Urine Dipstick - Negative Blood Urine Dipstick - Negative Glucose Urine Dipstick - Negative Ketones Urine Dipstick - Negative Leukocytes Urine Dipstick - Negative Nitrite Urine Dipstick - Negative Protein Urine Dipstick - Negative Specific Campbell Urine Dipstick - <=1.005 Urine Appearance Urine Dipstick - Clear Urine Color Urine Dipstick - Yellow Urobilinogen Urine Dipstick - Normal 0.2-1 EU/dl pH Urine Dipstick - 5 Allergies codeine (unknown) Problems Ongoing - Any problem that you are currently receiving treatment for. Anxiety Arthritis Asthma ASVD (arteriosclerotic vascular disease) Congenital occlusion of ureteropelvic junction (UPJ) Frequency of urination History of UTI Hydronephrosis Hydronephrosis with ureteropelvic junction obstruction Hyperlipidemia Nephrolithiasis Nocturia Psoriasis Renal cyst Smoker Ureteral stricture Ureteropelvic junction (UPJ) obstruction Vitamin B deficiency Vitamin D deficiency Education Materials Dietary Guidelines to Help Prevent Kidney Stones Kidney stones are deposits of minerals and salts that form inside your kidneys. Your risk of developing kidney stones may be greater depending on your diet, your lifestyle, the medicines you take, and whether you have certain medical conditions. Most people can lower their chances of developing kidney stones by following the instructions below. Your dietitian may give you more specific instructions depending on your overall health and the type of kidney stones you tend to develop. What are tips for following this plan? Reading food labels ? Choose foods with no salt added or low-salt labels. Limit your salt (sodium) intake to less than 1,500 mg a day. ? Choose foods with calcium for each meal and snack. Try to eat about 300 mg of calcium at each meal. Foods that contain 200?500 mg of calcium a serving include: ? 8 oz (237 mL) of milk, calcium-fortifiednon -dairy milk, and calcium-fortifiedfru it juice. Calcium-fortified means that calcium has been added to these drinks. ? 8 oz (237 mL) of kefir, yogurt, and soy yogurt. ? 4 oz (114 g) of tofu. ? 1 oz (28 g) of cheese. ? 1 cup (150 g) of dried figs. ? 1 cup (91 g) of cooked broccoli. ? One 3 oz (85 g) can of sardines or mackerel. Most people need 1,000?1,500 mg of calcium a day. Talk to your dietitian about how much calcium is recommended for you. Shopping ? Buy plenty of fresh fruits and vegetables. Most people do not need to avoid fruits and vegetables, even if these foods contain nutrients that may contribute to kidney stones. ? When shopping for convenience foods, choose: ? Whole pieces of fruit. ? Pre-made salads with dressing on the side. ? Low-fat fruit and yogurt smoothies. ? Avoid buying frozen meals or prepared deli foods. These can be high in sodium. ? Look for foods with live cultures, such as yogurt and kefir. ? Choose high-fiber grains, such as whole-wheat breads, oat bran, and wheat cereals. Cooking ? Do no (more content not included)... Normal [facility] Patient Educationon 09-03-19 Patient Education Nephrology Dietary Guidelines to Help Prevent Kidney Stones Kidney stones are deposits of minerals and salts that form inside your kidneys. Your risk of developing kidney stones may be greater depending on your diet, your lifestyle, the medicines you take, and whether you have certain medical conditions. Most people can lower their chances of developing kidney stones by following the instructions below. Your dietitian may give you more specific instructions depending on your overall health and the type of kidney stones you tend to develop. What are tips for following this plan? Reading food labels ? Choose foods with no salt added or low-salt labels. Limit your salt (sodium) intake to less than 1,500 mg a day. ? Choose foods with calcium for each meal and snack. Try to eat about 300 mg of calcium at each meal. Foods that contain 200?500 mg of calcium a serving include: ? 8 oz (237 mL) of milk, calcium-fortifiednon -dairy milk, and calcium-fortifiedfru it juice. Calcium-fortified means that calcium has been added to these drinks. ? 8 oz (237 mL) of kefir, yogurt, and soy yogurt. ? 4 oz (114 g) of tofu. ? 1 oz (28 g) of cheese. ? 1 cup (150 g) of dried figs. ? 1 cup (91 g) of cooked broccoli. ? One 3 oz (85 g) can of sardines or mackerel. Most people need 1,000?1,500 mg of calcium a day. Talk to your dietitian about how much calcium is recommended for you. Shopping ? Buy plenty of fresh fruits and vegetables. Most people do not need to avoid fruits and vegetables, even if these foods contain nutrients that may contribute to kidney stones. ? When shopping for convenience foods, choose: ? Whole pieces of fruit. ? Pre-made salads with dressing on the side. ? Low-fat fruit and yogurt smoothies. ? Avoid buying frozen meals or prepared deli foods. These can be high in sodium. ? Look for foods with live cultures, such as yogurt and kefir. ? Choose high-fiber grains, such as whole-wheat breads, oat bran, and wheat cereals. Cooking ? Do not add salt to food when cooking. Place a salt shaker on the table and allow each person to add his or her own salt to taste. ? Use vegetable protein, such as beans, textured vegetable protein (TVP), or tofu, instead of meat in pasta, casseroles, and soups. Meal planning ? Eat less salt, if told by your dietitian. To do this: ? Avoid eating processed or pre-made food. ? Avoid eating fast food. ? Eat less animal protein, including cheese, meat, poultry, or fish, if told by your dietitian. To do this: ? Limit the number of times you have meat, poultry, fish, or cheese each week. Eat a diet free of meat at least 2 days a week. ? Eat only one serving each day of meat, poultry, fish, or seafood. ? When you prepare animal protein, cut pieces into small portion sizes. For most meat and fish, one serving is about the size of the palm of your hand. ? Eat at least five servings of fresh fruits and vegetables each day. To do this: ? Keep fruits and vegetables on hand for snacks. ? Eat one piece of fruit or a handful of berries with breakfast. ? Have a salad and fruit at lunch. ? Have two kinds of vegetables at dinner. ? Limit foods that are high in a substance called oxalate. These include: ? Spinach (cooked), rhubarb, beets, sweet potatoes, and Swazi chard. ? Peanuts. ? Potato chips, swedish fries, and baked potatoes with skin on. ? Nuts and nut products. ? Chocolate. ? If you regularly take a diuretic medicine, make sure to eat at least 1 or 2 servings of fruits or vegetables that are high in potassium each day. These include: ? Avocado. ? Banana. ? [place], prune, carrot, or tomato juice. ? Baked potato. ? Cabbage. ? Beans and split peas. Lifestyle ? Drink enough fluid to keep your urine pale yellow. This is the most important thing you can do. Spread your fluid intake throughout the day. ? If you drink alcohol: ? Limit how much you use to: ? 0?1 drink a day for women who are not . ? 0?2 drinks a day for men. ? Be aware of how much alcohol is in your drink. In the [place] one drink equals one 12 oz bottle of beer (355 mL), one 5 oz glass of wine (148 mL), or one 1? oz glass of hard liquor (44 mL). ? Lose weight if told by your health care provider. Work with your dietitian to find an eating plan and weight loss strategies that work best for you. General information ? Talk to your health care provider and dietitian about taking daily supplements. You may be told the following depending on your health and the cause of your kidney stones: ? Not to take supplements with vitamin C. ? To take a calcium supplement. ? To take a daily probiotic supplement. ? To take other supplements such as magnesium, fish oil, or vitamin B6. ? Take [id number] and prescription medicines only as told by your health care provider. These include supplements. What foods should I limit? Limit your in (more content not included)... Normal [facility] Screenson 09-02-2022 Screens [id number] Normal [facility] Urology Office/Clinic Noteon 09-02-2022 Urology Office/Clinic Note Chief Complaint 18 month follow up HPI Staff Former DLS pt here today for 18m follow up to Congenital occlusion of ureteropelvics junction, Kidney Stone, UPJ obstruction & Hydronephrosis. *No Urology Medications. Renal US done 08/26/22 BMP 12/07/21 & CBC 12/07/21 Positive C&S 10/07/21 *E Coli Treated with Cipro 500mg BID x5days UA 07/01/21 & CMP 07/01/21 Dysuria: denies pain or burning Incomplete bladder emptying: denies Hematuria: denies visible blood Frequency: pt states she eats a lot of ice, 5-6x a day Urgency: denies Nocturia: denies Stream: denies hesitancy, denies weak stream Leaking: denies Post void dripping: denies Wearing pads/ Depends: yes sometimes wears a pad if she goes shopping Urge incontinence: denies Stress incontinence: denies Incontinence without Sensory Awareness: denies Abdominal pain: denies Flank pain: denies Sexual complaints: denies History of Present Illness Tests reviewed: reviewed UA, US. I have reviewed the previous health record information and history for this patient from Dr. Dangelo. I have reviewed and verified the staff HPI to be accurate for this encounter. There have been no associated fever, chills, flank pain, or blood in the urine. Denies any urinary infections since last encounter. Review of Systems PHQ Score Initial Depression Screen Score: 0 ROS - Provider Constitutional: denies weight loss, denies hot flashes. Eyes: denies eye problems. Gastrointestinal: denies nausea, denies vomiting. Cardiovascular: denies chest pain or angina. Integumentary: no dryness Musculoskeletal: denies musculoskeletal symptoms. ENMT: denies otolaryngeal symptoms. Respiratory: no shortness of breath. Heme/Lymph: denies easy bleeding tendency, denies easy bruising tendency. Psychiatric: no confusion, no anxiety. Genitourinary: See HPI. Physical Exam Vitals & Measurements HR: 100(Peripheral) BP: 150/83 HT: 64 in HT: 162 cm WT: 74.5 kg WT: 163.9 lb BMI: 28.39 General Appearance: alert , no acute distress, well nourished, well developed female. Genitourinary: bladder nonpalpable, no flank pain. Assessment/Plan Former DLS pt. ICIQ-SF 0. 1. Congenital occlusion of ureteropelvic junction (UPJ), (Q62.11: Congenital occlusion of ureteropelvic junction)Hydronephro sis with ureteropelvic junction obstruction 07/01/21 - BUN 9.0. Crea 0.64. eGFR >60. 12/07/21 - BUN 9.0, CREA 0.68, EGFR >60. Renal us done 10/15/20 chronic marked right hydronephrosis. Renal US done 08/26/22- Normal appearing left kidney, marked hydronephrosis of the right kidney, a similar finding was on the previous exam, some renal cortical thinning. Renal function labs followed by PCP. Reviewed US with pt, hydro/thinning minimally worsened. Discussed risks and benefits of surgical intervention, if surgery would be worth proceeding. Explained pt's R kidney will likely eventually stop function due to chronic obstruction. Would have to eval renal function with NM renal scan to see if R kidney is worth undergoing definitive treatment. It pt were to develop UTIs or other complications, would consider surgical intervention. -Pt undergoing workup for other medical issues. She will call when she would like to proceed with NM renal scan with flow with pharm or sooner if needed. Pt understands and agrees with plan. -Preserve L kidney fxn by keeping BP under control. 2. Nephrolithiasis (N20.0: Calculus of kidney) Renal US done 10/15/20 shows non obstruction 4mm stone in the right kidney. 4. History of UTI (Z87.440: Personal history of urinary (tract) infections) Positive C&S 10/07/21 *E Coli Treated with Cipro 500mg BID x5days Pt denies recalling a UTI. UA today negative for blood and infection. -Monitor for UTIs. -Increase fluid intake. Patient presented today for follow up of chronic R UPJ obstruction. Due to patient's continued obstruction, I will order NM renal scan to better vocational counselor on management options. I spent 22 minutes today with the patient: reviewing tests in preparation to see and discuss them with the patient, obtaining and reviewing external separately obtained history, documenting clinical information in the electronic health records, and care coordination. Over half the time was spent performing a medical exam and evaluation, and counseling and educating the patient, and ordering tests in caring for the patient. Follow-up With When Contact Information Gregor LUIS, Tonya Vo, URL, URO Additional Instructions: pt to call for f/u Patient Education Dietary Guidelines to Help Prevent Kidney Stones IJackie, personally scribed for Dr. Bundy on 09/02/2022 12:09:41. . Documentation recorded by the scribe, Jackie Zarate, accurately reflects the services(s) I performed and decisions made by me. Authenticated by Dr. Bundy on 09/02/2022 17:34:14. Problem List/Past Medical History Ongoing Anxiety Arthritis Asthma ASVD (art (more content not included)... Normal [facility] Comment on above: Result Comment: Elec tronically Signed By: Tonya Bundy MD\.br\Date and Time Signed: 09/02/22 17:35 EDT\.br\Electronically Co-Signed By: Jackie Zarate\.br\Date and Time Co-Signed: 09/02/22 12:10 EDT US KIDNEYSon 08-26-2022 US KIDNEYS EXAM: US KIDNEYS HISTORY: . Hydronephrosis . COMPARISON: 10/15/2020 TECHNIQUE: Grayscale and color imaging was performed FINDINGS: Scanning of the filled bladder demonstrates a normal-appearing bladder. Bladder volume was 432 cc. Bilateral ureteral jets were noted. Right kidney measures 12.4 x 4.4 x 5 cm. There is renal cortical thinning. There is marked right hydronephrosis. Color-flow is noted involving the right kidney. Left kidney measures 11.2 x 5.2 x 3.9 cm. Color-flow is noted. No solid renal cortical masses or hydronephrosis is noted. IMPRESSION: 1. Normal-appearing left kidney. 2. Marked hydronephrosis of the right kidney. A similar finding was on the previous exam. There is some renal cortical thinning. 3. Normal-appearing bladder with bilateral ureteral jets. 4. 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 This was noted on the previous renal ultrasound and CT. Electronically authenticated by: CATINA KHANNA Date: 2022-08-26 10:33 Normal [facility] Provider Letteron 05-07-2022 Provider Letter May 07, 2022 CHRISTAL ERVIN [address] [place] [address] [place] [id number] CHRISTAL ERVIN 1950 Dear Ms Ervin, We have been trying to reach you with no success. It is important that you return our call regarding your office visit upon receiving this letter. We need you to have an ultrasound prior to your visit and this needs to be scheduled. Please call our office! Also, at the time of your call, please provide us with your current information. Thank you for your prompt attention to this matter. Sincerely, [facility] [place] [address] ERROR-letter not sent. Pt has an US scheduled (noted in another message). Normal [facility] CBC AUTO DIFFon 12-07-2021 BASO # 0.0 103/ul Normal 0.0-0.1 [facility] Comment on above: Performed By: #### C BC #### [facility] [address] [address] [address] Senait Pisano Basophils/100 WBC (Bld) 1.0 % Normal 0.2-2.0 [facility] Comment on above: Performed By: #### C BC #### [facility] [address] [address] [address] Senait Pisano EO # 0.1 103/ul Normal 0.0-0.7 [facility] Comment on above: Performed By: #### C BC #### [facility] [address] [address] [address] Senait Pisano Eosinophils/100 WBC (Bld) 2.0 % Normal 0.9-7.0 [facility] Comment on above: Performed By: #### C BC #### [facility] [address] [address] [address] Senait Pisano Erythrocyte distribution width (RBC) [Ratio] 15.7 % Critically high 11.0-15.0 [facility] Comment on above: Performed By: #### C BC #### [facility] [address] [address] [address] Senait Pisano Hematocrit (Bld) [Volume fraction] 38.8 % Normal 36.0-48.0 [facility] Comment on above: Performed By: #### C BC #### [facility] [address] [address] [address] Senait Pisano Hemoglobin (Bld) [Mass/Vol] 12.0 g/dL Normal 12.0-16.0 [facility] Comment on above: Performed By: #### C BC #### [facility] [address] [address] [address] Senait Pisano IG # 0.01 10e3/ul Normal 0.00-0.03 [facility] Comment on above: Performed By: #### C BC #### [facility] [address] [address] [address] Senait Pisano IG % 0.2 % Normal 0.0-0.5 [facility] Comment on above: Performed By: #### C BC #### [facility] [address] [place] [address] Dr. Senait Pisano LYMPH # 0.9 103/ul Critically low 1.2-3.8 [facility] Comment on above: Performed By: #### C BC #### [facility] [address] [place] [address] Dr. Senait Pisano Lymphocytes/100 WBC (Bld) 20.8 % Normal 20.5-60.0 [facility] Comment on above: Performed By: #### C BC #### [facility] [address] [place] [address] Dr. Senait Pisano MANUAL DIFF REQ NO Normal [facility] Comment on above: Performed By: #### C BC #### [facility] [address] [place] [address] Dr. Senait Pisano MCH (RBC) [Entitic mass] 23.6 pg Critically low 26.7-34.0 [facility] Comment on above: Performed By: #### C BC #### [facility] [address] [place] [address] Dr. Senait Pisano MCHC (RBC) [Mass/Vol] 30.9 g/dL Normal 29.9-35.2 [facility] Comment on above: Performed By: #### C BC #### [facility] [address] [place] [address] Dr. Senait Pisano MCV (RBC) [Entitic vol] 76.4 fL Critically low 81.0-99.0 [facility] Comment on above: Performed By: #### C BC #### [facility] [address] [place] [address] Dr. Senait Pisano MONO # 0.5 103/ul Normal 0.3-0.8 [facility] Comment on above: Performed By: #### C BC #### [facility] [address] [place] [address] Dr. Senait Pisano Monocytes/100 WBC (Bld) 13.2 % Critically high 1.7-12.0 [facility] Comment on above: Performed By: #### C BC #### [facility] [address] [place] [address] Dr. Senait Pisano NEUT # 2.6 103/ul Normal 1.4-6.5 [facility] Comment on above: Performed By: #### C BC #### [facility] [address] [place] [address] Dr. Senait Pisaon Neutrophils/100 WBC (Bld) 62.8 % Normal 43.0-75.0 [facility] Comment on above: Performed By: #### C BC #### [facility] [address] [place] [address] Dr. Senait Pisano Platelet mean volume (Bld) [Entitic vol] 10.0 fL Normal 9.5-13.5 [facility] Comment on above: Performed By: #### C BC #### [facility] [address] [place] [address] Dr. Senait Pisano PLT 177 103/ul Normal 150-450 [facility] Comment on above: Performed By: #### C BC #### [facility] [address] [place] [address] Dr. Senait Pisano RBC 5.08 106/ul Normal 4.20-5.40 [facility] Comment on above: Performed By: #### C BC #### [facility] [address] [place] [address] Dr. Senait Pisano WBC 4.1 103/ul Normal 4.0-11.0 [facility] Comment on above: Performed By: #### C BC #### [facility] [address] [place] [address] Dr. Senait Pisano PROF CHEM 8 (BAS METB)on Anion gap [Moles/Vol] 8.3 mmol/L Normal [facility] Comment on above: Performed By: #### B MP #### [facility] [address] [address] [address] Senait Pisano Calcium [Mass/Vol] 8.0 mg/dL Critically low 8.5-10.1 [facility] Comment on above: Performed By: #### B MP #### [facility] [address] [address] [address] Senait Pisano Chloride [Moles/Vol] 105 mmol/L Normal 98-107 [facility] Comment on above: Performed By: #### B MP #### [facility] [address] [place] [address] Dr. Senait Pisano CO2 [Moles/Vol] 28.6 mmol/L Normal 21.0-32.0 [facility] Comment on above: Performed By: #### B MP #### [facility] [address] [place] [address] Dr. Senait Pisano Creatinine [Mass/Vol] 0.68 mg/dL Normal 0.55-1.02 [facility] Comment on above: Performed By: #### B MP #### [facility] [address] [place] [address] Dr. Senait Pisano EGFR-AF OMANI >60 Normal >=60 [facility] Comment on above: Performed By: #### B MP #### [facility] [address] [address] [address] Senait Pisano EGFR-NON AF OMANI >60 Normal >=60 [facility] Comment on above: Performed By: #### B MP #### [facility] [address] [address] [address] Senait Pisano Glucose [Mass/Vol] 192 mg/dL Critically high 74-106 [facility] Comment on above: Performed By: #### B MP #### [facility] [address] [place] [address] Dr. Senait Pisano Potassium [Moles/Vol] 3.9 mmol/L Normal 3.5-5.1 [facility] Comment on above: Performed By: #### B MP #### [facility] [address] [address] [address] Senait Pisano Sodium [Moles/Vol] 138 mmol/L Normal 136-145 [facility] Comment on above: Performed By: #### B MP #### [facility] [address] [address] [address] Senait Pisano Urea nitrogen [Mass/Vol] 9.0 mg/dL Normal 7.0-18.0 [facility] Comment on above: Performed By: #### B MP #### [facility] [address] [address] [address] Senait Pisano Urea nitrogen/Creatinine [Mass ratio] 13.2 mg/mg Normal [facility] Comment on above: Performed By: #### B MP #### [facility] [address] [address] [address] Senait Pisano Quick Fluon 10-07-2021 FLUAV Ab CF (S) [Titer] Negative [employer] Other FLUBV Ab CF (S) [Titer] Negative [employer] Other Urinalysis - AUTOMATEDon Appearance (U) CLOUDY [employer] Other Bilirubin Ql (U) Negative [employer] Other Color (U) YELLOW [employer] Other Glucose Ql (U) Negative [employer] Other Hemoglobin Ql (U) MODERATE [employer] Other Ketones Ql (U) Negative [employer] Other Leukocyte esterase Test strip Ql (U) LARGE [employer] Other Nitrite Ql (U) Positive [employer] Other pH (U) 5.5 [pH] [employer] Other Protein Ql (U) 30 [employer] Other Specific gravity (U) [Rel density] <1.005 [employer] Other Urobilinogen (U) [Mass/Vol] 0.2 mg/dL [employer] Other Urinalysis - AUTOMATED [employer] Other Urine Cultureon 10-07-2021 Urine Culture >100,000 [employer] Other Urine Culture <16 Susceptible [employer] Other Urine Culture >16 Resistant [employer] Other Urine Culture <4 Susceptible [employer] Other Urine Culture 4 Susceptible [employer] Other Urine Culture <2 Susceptible [employer] Other Urine Culture <1 Susceptible [employer] Other Urine Culture <0.5 Susceptible [employer] Other Urine Culture <32 Susceptible [employer] Other Urine Culture <2/38 Susceptible [employer] Other Complete Blood Count with Au to Diffon 04-17-2021 Basophils (Bld) [#/Vol] 0.08 10*3/uL Normal 0.00-0.20 [facility] Comment on above: Performed By: #### C BCAD, CMP #### [facility] [address], [place] [id number] Basophils/100 WBC (Bld) 1.4 % Normal [facility] Comment on above: Performed By: #### C BCAD, CMP #### [facility] [address], [place] [id number] Eosinophils (Bld) [#/Vol] 0.13 10*3/uL Normal 0.02-0.50 [facility] Comment on above: Performed By: #### C BCAD, CMP #### [facility] [address], [place] [id number] Eosinophils/100 WBC (Bld) 2.3 % Normal [facility] Comment on above: Performed By: #### C BCAD, CMP #### [facility] [address], [place] [id number] Erythrocyte distribution width (RBC) [Ratio] 15.6 % High 11.0-15.0 [facility] Comment on above: Performed By: #### C BCAD, CMP #### [facility] [address], [place] [id number] Hematocrit (Bld) [Volume fraction] 42.8 % Normal 35.0-47.0 [facility] Comment on above: Performed By: #### C BCAD, CMP #### [facility] [address], [place] [id number] Hemoglobin (Bld) [Mass/Vol] 13.3 g/dL Normal 11.6-15.5 [facility] Comment on above: Performed By: #### C BCAD, CMP #### [facility] [address], [place] [id number] Lymphocytes (Bld) [#/Vol] 1.4 10*3/uL Normal 0.9-3.9 [facility] Comment on above: Performed By: #### C BCAD, CMP #### [facility] [address], [place] [id number] Lymphocytes/100 WBC (Bld) 25.0 % Normal [facility] Comment on above: Performed By: #### C BCAD, CMP #### [facility] [address], [place] [id number] MCH (RBC) [Entitic mass] 23.7 pg Low 27.0-33.0 [facility] Comment on above: Performed By: #### C BCAD, CMP #### [facility] [address], [place] [id number] MCHC (RBC) [Mass/Vol] 31.1 g/dL Low 32.0-36.0 [facility] Comment on above: Performed By: #### C BCAD, CMP #### [facility] [address], [place] [id number] MCV (RBC) [Entitic vol] 76 fL Low 80-100 [facility] Special[facility] Comment on above: Performed By: #### C BCAD, CMP #### [facility] [address], [place] [id number] Monocytes (Bld) [#/Vol] 0.8 10*3/uL Normal 0.2-0.9 [facility] Comment on above: Performed By: #### C BCALoly, CMP #### [facility] [address], [place] [id number] Monocytes/100 WBC (Bld) 14.3 % Normal [facility] Comment on above: Performed By: #### C BCALoly, CMP #### [facility] [address], [place] [id number] Neutrophils (Bld) [#/Vol] 3.2 10*3/uL Normal 1.5-7.8 [facility] Comment on above: Performed By: #### C BCALoly, CMP #### [facility] [address], [place] [id number] Neutrophils/100 WBC (Bld) 56.5 % Normal [facility] Comment on above: Performed By: #### C BCALoly, CMP #### [facility] [address], [place] [id number] Platelet mean volume (Bld) [Entitic vol] 11.10 fL Normal 7.50-12.50 [facility] Comment on above: Performed By: #### C BCAD, CMP #### [facility] [address], [place] [id number] Platelets (Bld) [#/Vol] 220 10*3/uL Normal 140-400 [facility] Comment on above: Performed By: #### C BCAD, CMP #### [facility] [address], [place] [id number] RBC (Bld) [#/Vol] 5.61 10*6/uL High 3.90-5.20 [facility] Comment on above: Performed By: #### C BCAD, CMP #### [facility] [address], [place] [id number] RDW-SD 42.5 fL Normal 37.0-50.0 [facility]/President Comment on above: Performed By: #### C BCAD, CMP #### [facility] [address], [place] [id number] WBC (Bld) [#/Vol] 5.6 10*3/uL Normal 3.8-11.0 [facility] Surgeon/President Comment on above: Performed By: #### C BCAD, CMP #### [facility] [address], [place] [id number] Comprehensive Metabolic Pane dulce maria 04-17-2021 Albumin [Mass/Vol] 4.2 g/dL Normal 3.6-5.1 [facility] Surgeon/President Comment on above: Performed By: #### C BCAD, CMP #### [facility] [address], [place] [id number] Albumin/Globulin [Mass ratio] 1.4 {ratio} Normal 1.0-2.5 [facility]/President Comment on above: Performed By: #### C BCAD, CMP #### [facility] [address], [place] [id number] ALP [Catalytic activity/Vol] 138 U/L High 35-119 [facility] Comment on above: Performed By: #### C BCAD, CMP #### [facility] [address], [place] [id number] ALT [Catalytic activity/Vol] 24 U/L Normal 6-33 [facility]/President Comment on above: Result Comment: 02/26 Female reference range changed. Performed By: #### C BCAD, CMP #### [facility] [address], [place] [id number] Anion gap [Moles/Vol] 19 mmol/L Normal 12-20 [facility]/President Comment on above: Result Comment: Effe ctive 04/03/2019 reference range changed. Performed By: #### C BCAD, CMP #### [facility] [address], [place] [id number] AST [Catalytic activity/Vol] 30 U/L Normal 9-34 [facility] Comment on above: Performed By: #### C BCAD, CMP #### [facility] [address], [place] [id number] BUN/CREA 20 Ratio Normal 6-22 [facility] Comment on above: Performed By: #### C BCAD, CMP #### [facility] [address], [place] [id number] Calcium [Mass/Vol] 9.0 mg/dL Normal 8.6-10.[address] [facility] Comment on above: Performed By: #### C BCAD, CMP #### [facility] [address], [place] [id number] Chloride [Moles/Vol] 103 mmol/L Normal 98-107 [facility] Comment on above: Performed By: #### C BCAD, CMP #### [facility] [address], [place] [id number] CO2 [Moles/Vol] 22 mmol/L Normal 20-31 [facility] Comment on above: Performed By: #### C BCAD, CMP #### [facility] [address], [place] [id number] Creatinine [Mass/Vol] 0.6 mg/dL Normal 0.6-1.4 [facility] Comment on above: Performed By: #### C BCAD, CMP #### [facility] [address], [place] [id number] eGFRAA 111 mL/min/1.73m2 Normal >60 [facility] Comment on above: Performed By: #### C BCAD, CMP #### [facility] [address], [place] [id number] eGFRNAA 92 mL/min/1.73m2 Normal >60 [facility] Comment on above: Performed By: #### C BCAD, CMP #### [facility] [address], [place] [id number] Globulin (S) [Mass/Vol] 3.0 g/dL Normal 1.9-3.7 [facility] Comment on above: Performed By: #### C BCAD, CMP #### [facility] [address], [place] [id number] Glucose [Mass/Vol] 113 mg/dL High 65-99 [facility] Surgeon/President Comment on above: Result Comment: For FASTING Glucose --- ADA reference ranges: Normal 65-99 mg/dl Prediabetes 100-125 Diabetes >/= 126 Performed By: #### C BCAD, CMP #### [facility] [address], [place] [id number] Potassium [Moles/Vol] 4.3 mmol/L Normal 3.5-5.5 [facility]geon/President Comment on above: Performed By: #### C BCAD, CMP #### [facility] [address], [place] [id number] Protein [Mass/Vol] 7.2 g/dL Normal 6.1-8.1 [facility] [place] Surgeon/President Comment on above: Performed By: #### C BCAD, CMP #### [facility] [address], [place] [id number] Sodium [Moles/Vol] 139 mmol/L Normal 135-146 [facility] [place] Surgeon/President Comment on above: Performed By: #### C BCAD, CMP #### [facility] [address], [place] [id number] TBIL <0.3 Normal [facility] Surgeon/President Comment on above: Performed By: #### C BCAD, CMP #### [facility] [address], [place] [id number] Urea nitrogen [Mass/Vol] 13 mg/dL Normal 7-25 [facility] Surgeon/President Comment on above: Performed By: #### C BCAD, CMP #### [facility] [address], [place] [id number] Hemoglobin A1Con 04-17-2021 EAG 119.76 Normal [facility] Surgeon/President Comment on above: Performed By: #### A 1C #### [facility] [address], [place] [id number] HbA1c (Bld) [Mass fraction] 5.8 % Normal 4.0-6.0 [facility] Surgeon/President Comment on above: Performed By: #### A 1C #### [facility] [address], [place] [id number] Vital Signs Date Time Vital Sign Value Performing Clinician Facility 05-07-2023 09:00-0500 Body height 162.56 cm Milla Skinner Other [facility] Other 05-07-2023 09:00-0500 Body mass index (BMI) [Ratio] 28.25 kg/m2 Milla Skinner Other [facility] Other 05-07-2023 09:00-0500 Body temperature 98 [degF] Milla Skinner Other [facility] Other 05-07-2023 09:00-0500 Body weight 74.66 kg Milla Skinner Other [facility] Other 05-07-2023 09:00-0500 Diastolic blood pressure 80 mm[Hg] Milla Skinner Other [facility] Other 05-07-2023 09:00-0500 Respiratory rate 18 /min Milla Skinner Other [facility] Other 05-07-2023 09:00-0500 SaO2% (BldA) [Mass fraction] 98 % Milla Skinner Other [facility] Other 05-07-2023 09:00-0500 Systolic blood pressure 136 mm[Hg] Milla Skinner Other [facility] Other 09-02-2022 10:45-0400 Blood Pressure Location Tonya Lue [facility] 09-02-2022 10:45-0400 Diastolic blood pressure 83 mm[Hg] Tonya Lue [facility] 09-02-2022 10:45-0400 Heart rate 100 /min Tonya Bundy [facility] 09-02-2022 10:45-0400 Systolic blood pressure 150 mm[Hg] Tonya Bundy [facility] 10-07-2021 10:00-0400 Body height 162.56 cm Heather Mayra Other [facility] Other 10-07-2021 10:00-0400 Body mass index (BMI) [Ratio] 29.01 kg/m2 Heather Mayra Other [facility] Other 10-07-2021 10:00-0400 Body temperature 99.6 [degF] Heather Mayra Other [facility] Other 10-07-2021 10:00-0400 Body weight 76.66 kg Heather Alcazarmond Other [facility] Other 10-07-2021 10:00-0400 SaO2% (BldA) [Mass fraction] 95 % Heather Mayra Other [facility] Other Encounters Encounter Date Encounter Type Care Provider Facility Start: 05-07-2023 End: 05-07-2023 ambulatory Milla Skinner Other [facility] Other Start: 05-07-2023 Office outpatient vi sit 25 minutes [facility] Start: 04-19-2023 End: 04-19-2023 ambulatory MIKE DEJESUS Not Available Start: 04-08-2023 End: 04-08-2023 ambulatory Mike Dejesus Facility:[facility] Start: 04-08-2023 End: 04-08-2023 ambulatory DO Mike Dejesus Work Phone: [facility] Work Phone: Start: 04-08-2023 End: 04-08-2023 Patient encounter procedure DO Mike Dejesus Work Phone: [facility] Work Phone: Start: 03-08-2023 End: 03-08-2023 ambulatory Mike Dejesus Facility:[facility] Start: 03-08-2023 End: 03-08-2023 ambulatory DO Mike Dejesus Work Phone: [facility] Work Phone: Start: 03-08-2023 End: 03-08-2023 Patient encounter procedure DO Mike Dejesus Work Phone: [facility] Work Phone: Start: 02-23-2023 End: 02-23-2023 ambulatory MIKE DEJESUS Not Available Start: 02-04-2023 ambulatory Mike Dejesus Facility :[facility] Start: 09-02-2022 End: 09-03-2022 ambulatory Tonya Bundy Facility:[facility] Start: 09-02-2022 End: 09-02-2022 Patient encounter procedure Tonya CooneyKellie Bundy [facility] Start: 08-26-2022 ambulatory FRANCIS HOLDEN Facility :[facility] Start: 12-07-2021 End: 12-07-[address] DOCTOR GOMES Facility:[facility] Start: 10-07-2021 End: 10-07-2021 ambulatory Heather Nunez Other [facility] Other Start: 10-07-2021 Office outpatient vi sit 15 minutes Heather Nunez [facility] Procedures Date Procedure Procedure Detail Performing Clinician Start: 10-07-2021 Piperacillin/tazobactam Heather Nunez Other Start: 05-23-2013 Cysto, UD, B/L RG Tonya Lue Bladder Sling 1 Tonya Lue Comment on above: Dr. Gladys Forrester Tonya Lue Hysterectomy Tonya Lue Knee region structur e (body structure) Tonya Lue Comment on above: B/L Lumbar (qualifier value) Sulma hy Lue Immunizations Immunization Date Immunization Notes Care Provider [facility] 02-25-2022 influenza virus vacc ine, unspecified formulation Tonya Lue [facility] 02-28-2021 SARS-CoV-2 (COVID-19 ) Ad26 vaccine, recombinant Tonya Lue [facility] 02-13-2021 influenza virus vacc ine, unspecified formulation Tonya Lue [facility] 07-06-2020 SARS-CoV-2 (COVID-19 ) mRNA-1273 vaccine Tonya Lue [facility] 06-27-2020 SARS-CoV-2 (COVID-19 ) Ad26 vaccine, recombinant Tonya Lue [facility] 06-08-2020 SARS-CoV-2 (COVID-19 ) mRNA-1273 vaccine Tonya Lue [facility] 05-27-2020 SARS-CoV-2 (COVID-19 ) Ad26 vaccine, recombinant Tonya Lue [facility] 02-01-2020 influenza virus vacc ine, unspecified formulation Tonya Lue [facility] 12-27-2018 influenza virus vacc ine, unspecified formulation Tonya Lue [facility] 11-08-2017 pneumococcal polysaccharide vaccine, 23 valent Tonya Longe [facility] 11-25-2016 influenza virus vacc ine, unspecified formulation Tonya Lue [facility] 01-20-2016 influenza virus vacc ine, unspecified formulation Tonya Lue [facility] 02-08-2015 tetanus toxoid, redu herbert diphtheria toxoid, and acellular pertussis vaccine, adsorbed Tonya Lue [facility] Payers Date Payer Category Payer Self-pay [id number] 1959 Medicare [id number] 2.1 [id number] 1959 Unknown [id number] 2.1 [id number] 1950 Unknown [id number] 2.16.84 [id number] 1950 Unknown [id number] 2.16.84 [id number] 1950 Unknown [id number] 2.16.8 [id number] 1950 Unknown [id number] 2.16.84 [id number] 1950 Unknown [id number] [id number] .[id number] Unknown Kristin BC/BS [id number] Unknown [id number] 2.16.8 [id number] Unknown [id number] 2.16.8 [id number] Unknown [id number] 2.16.8 [id number] Social History Date Type Detail Facility Sex Assigned At [facility] Start: 09-02-2022 Tobacco smoking status Light t obacco smoker (finding) [facility] Tobacco smoking status Smoker (finding) [facility] Tobacco smoking status Never [facility] Start: 1950 Sex Assigned At Female F [facility] Functional Status Date Assessment Result Facility 09-02-2022 Functional Status N/A [facility] Evaluation note 05-07-2023 Note Date & Type Note Facility 05-07-2023 Evaluation note Encounter Date Diagnosis Assessment Notes Apr, Strain of lumbar region, initial encounter (ICD-10 - S39.012A) Low back pain home care material was printed Discussed diagnosis with patient. Toradol and Kenalog injection given today in office. Advised patient to take medications as directed. Use muscle relaxer at night time as it may cause drowsiness. May use OTC Tylenol and icy hot application for additional relief. Encouraged warm compresses, light stretches, and massage may also help with pain. Avoid strenuous activity, perform activity as tolerated, do not stay stationary for long periods of time as it might make symptoms worse. Follow up with PCP in 1 week if symptoms do not improve. Immediate eval for chest pain, shortness of breath, fever, numbness or tingling, loss of bowel or bladder control, pain becomes severe, difficulty moving neck, back, arms or legs, dizziness, headache, or any other new or concerning symptoms arise. Patient verbalizes understanding and is agreeable to treatment plan. [facility] Other Hospital Discharge instructions 09-02-2022 Note Date & Type Note Facility 09-02-2022 Hospital Discharg e instructions Patient Education 09/02/2022 12:09:06 Dietary Guidelines to Help Prevent Kidney Stones Dietary Guidelines to Help Prevent Kidney Stones Kidney stones are deposits of minerals and salts that form inside your kidneys. Your risk of developing kidney stones may be greater depending on your diet, your lifestyle, the medicines you take, and whether you have certain medical conditions. Most people can lower their chances of developing kidney stones by following the instructions below. Your dietitian may give you more specific instructions depending on your overall health and the type of kidney stones you tend to develop. What are tips for following this plan? Reading food labels Choose foods with no salt added or low-salt labels. Limit your salt (sodium) intake to less than 1,500 mg a day. Choose foods with calcium for each meal and snack. Try to eat about 300 mg of calcium at each meal. Foods that contain 200 500 mg of calcium a serving include: ?8 oz (237 mL) of milk, fwakqis-qymptbfyzxfb-qczvj milk, and calcium-fortifiedfruit juice. Calcium-fortified means that calcium has been added to these drinks. ?8 oz (237 mL) of kefir, yogurt, and soy yogurt. ?4 oz (114 g) of tofu. ?1 oz (28 g) of cheese. ?1 cup (150 g) of dried figs. ?1 cup (91 g) of cooked broccoli. ?One 3 oz (85 g) can of sardines or mackerel. Most people need 1,000 1,500 mg of calcium a day. Talk to your dietitian about how much calcium is recommended for you. Shopping Buy plenty of fresh fruits and vegetables. Most people do not need to avoid fruits and vegetables, even if these foods contain nutrients that may contribute to kidney stones. When shopping for convenience foods, choose: ?Whole pieces of fruit. ?Pre-made salads with dressing on the side. ?Low-fat fruit and yogurt smoothies. Avoid buying frozen meals or prepared deli foods. These can be high in sodium. Look for foods with live cultures, such as yogurt and kefir. Choose high-fiber grains, such as whole-wheat breads, oat bran, and wheat cereals. Cooking Do not add salt to food when cooking. Place a salt shaker on the table and allow each person to add his or her own salt to taste. Use vegetable protein, such as beans, textured vegetable protein (TVP), or tofu, instead of meat in pasta, casseroles, and soups. Meal planning Eat less salt, if told by your dietitian. To do this: ?Avoid eating processed or pre-made food. ?Avoid eating fast food. Eat less animal protein, including cheese, meat, poultry, or fish, if told by your dietitian. To do this: ?Limit the number of times you have meat, poultry, fish, or cheese each week. Eat a diet free of meat at least 2 days a week. ?Eat only one serving each day of meat, poultry, fish, or seafood. ?When you prepare animal protein, cut pieces into small portion sizes. For most meat and fish, one serving is about the size of the palm of your hand. Eat at least five servings of fresh fruits and vegetables each day. To do this: ?Keep fruits and vegetables on hand for snacks. ?Eat one piece of fruit or a handful of berries with breakfast. ?Have a salad and fruit at lunch. ?Have two kinds of vegetables at dinner. Limit foods that are high in a substance called oxalate. These include: ?Spinach (cooked), rhubarb, beets, sweet potatoes, and Swazi chard. ?Peanuts. ?Potato chips, swedish fries, and baked potatoes with skin on. ?Nuts and nut products. ?Chocolate. If you regularly take a diuretic medicine, make sure to eat at least 1 or 2 servings of fruits or vegetables that are high in potassium each day. These include: ?Avocado. ?Banana. ?[place], prune, carrot, or tomato juice. ?Baked potato. ?Cabbage. ?Beans and split peas. Lifestyle Drink enough fluid to keep your urine pale yellow. This is the most important thing you can do. Spread your fluid intake throughout the day. If you drink alcohol: ?Limit how much you use to: ?0 1 drink a day for women who are not . ?0 2 drinks a day for men. ?Be aware of how much alcohol is in your drink. In the [place] one drink equals one 12 oz bottle of beer (355 mL), one 5 oz glass of wine (148 mL), or one 1 oz glass of hard liquor (44 mL). Lose weight if told by your health care provider. Work with your dietitian to find an eating plan and weight loss strategies that work best for you. General information Talk to your health care provider and dietitian about taking daily supplements. You may be told the following depending on your health and the cause of your kidney stones: ?Not to take supplements with vitamin C. ?To take a calcium supplement. ?To take a daily probiotic supplement. ?To take other supplements such as magnesium, fish oil, or vitamin B6. Take mpak-isn-mxpxcor and prescription medicines only as told by your health care provider. These include supplements. What foods should I limit? Limit your intake of the following foods, or eat them as told by your dietitian. Vegetables Spinach. Rhubarb. Beets. Canned vegetables. Pickles. Olives. Baked potatoes with skin. Grains Wheat bran. Baked goods. Salted crackers. Cereals high in sugar. Meats and other proteins Nuts. Nut butters. Large portions of meat, poultry, or fish. Salted, precooked, or cured meats, such as sausages, meat loaves, and hot dogs. Dairy Cheese. Beverages Regular soft drinks. Regular vegetable juice. Seasonings and condiments Seasoning blends with salt. Salad dressings. Soy sauce. Ketchup. Barbecue sauce. Other foods Canned soups. Canned pasta sauce. Casseroles. Pizza. Lasagna. Frozen meals. Potato chips. Monegasque fries. The items listed above may not be a complete list of foods and beverages you should limit. Contact a dietitian for more information. What foods should I avoid? Talk to your dietitian about specific foods you should avoid based on the type of kidney stones you have and your overall health. Fruits Grapefruit. The item listed above may not be a complete list of foods and beverages you should avoid. Contact a dietitian for more information. Summary Kidney stones are deposits of minerals and salts that form inside your kidneys. You can lower your risk of kidney stones by making changes to your diet. The most important thing you can do is drink enough fluid. Drink enough fluid to keep your urine pale yellow. Talk to your dietitian about how much calcium you should have each day, and eat less salt and animal protein as told by your dietitian. This information is not intended to replace advice given to you by your health care provider. Make sure you discuss any questions you have with your health care provider. Document Revised: 11/24/2021 Document Reviewed: 11/24/2021 [employer] Patient Education 2022 [employer]. Follow Up Care 03/04/2021 10:12:25 With:Gregor LUIS, KENNEDY Whaley, URO Address: When: Unknown [facility] Evaluation note 10-07-2021 Note Date & Type Note Facility 10-07-2021 Evaluation note Encounter Date Diagnosis Assessment Notes Sep, Fever, unspecified fever cause (ICD-10 - R50.9) Sep, Urinary tract infection, site not specified (ICD-10 - N39.0) Urinary tract infection (UTI) home care material was printed Drink plenty fluids, get plenty of rest. Continue home medications as prescribed. Take Cipro as prescribed until gone. Follow-up with your urologist without fail, call today for an appointment to be seen as soon as possible. Sep, Dysuria (ICD-10 - R30.0) Sep, Hematuria, unspecified (ICD-10 - R31.9) [facility] Other Evaluation + Plan note Note Date & Type Note Facility Evaluation + Plan note No data available for this section [facility] Evaluation note Note Date & Type Note Facility Evaluation note No assessment information [facility] Work Phone: History general Narrative - Reported Note Date & Type Note Facility History general Narrative - Reported Type Medical History Left kidney mass Medical History COPD (chronic obstru ctive pulmonary disease) Medical History Anxiety Medical History Unspecified osteoart hritis, unspecified site Medical History Psoriasis Surgical History Open lyn Surgical History Back surgery Surgical History Bilateral knee surgery Surgical History Hysterectomy Hospitalization History See past surgical hx [facility] Other Progress note Note Date & Type Note Facility Progress note No data available for this section [facility] Summary Purpose Family History No Family History Records FoundNo Family History Records FoundNo Family History Records FoundNo Family History Records FoundNo Family History Records Found Advance Directives Advance Directive Response Recorded Date/ Time Advance Directives No July 31, 2019 9:58am Chief Complaint and Reason for Visit Chief Complaint i70.91 h81.4 Chief Complaint i70.91 h81.4 r00.2 Additional Source Comments INFORMATION SOURCE (unrecogn ized section and content) DATE CREATED AUTHOR 04/18/2021 [facility] DATE CREATED AUTHOR AUTHOR'S ORGANIZ ATION [facility]/07/2022 [facility] DATE CREATED AUTHOR AUTHOR'S ORGANIZ ATION 03/04/2023 [facility] DATE CREATED AUTHOR AUTHOR'S ORGANIZ ATION 04/19/2023 [facility] dical Specialists EPIC DATE CREATED AUTHOR AUTHOR'S ORGANIZ ATION 05/07/2023 [facility] REASON FOR VISIT (unrecogniz ed section and content) DYSURIA, SOB, COUGH, CALL CE LL PHONEDYSURIA, SOB, COUGH, CALL CELL PHONEDYSURIA, SOB, COUGH, CALL CELL PHONElow back pain while moving heavy object Patient Care team informatio n (unrecognized section and content) Team Status: Active Member Role Status Dates Mike Dejesus DO Primary Care Provider Active Team Status: Inactive Member Role Status Dates TATIANNA Penaloza Attending Provider Krystal Dejesus DO Primary Care Provider Active Team Status: Inactive Member Role Status Dates Mike Dejesus DO Primary Care Provider, Attending Flora jennings Active Goals (unrecognized section and content) Goals may be documented in a n alternate section FOR RECORDS PERTAINING TO PATIENTS WHO ARE OR HAVE BEEN ENROLLED IN A CHEMICAL DEPENDENCY/SUBSTANCEABUSE PROGRAM, SOME INFORMATION MAY BE OMITTED. This clinical summary was aggregated from multiple sources. Caution should be exercised in using it in the provision of clinical care. This summary normalizes information from multiple sources, and as a consequence, information in this document may materially change the coding, format and clinical context of patient data. In addition, data may be omitted in some cases. CLINICAL DECISIONS SHOULD BE BASED ON THE PRIMARY CLINICAL RECORDS. [facility] [facility]. provides no warranty or guarantee of the accuracy or completeness of information in this document.
[2023-05-10 21:26] VITALS: BP 175/99; PULSE 989; RESP 14; TEMP 36.6; O2SAT 97; BMI 27.8
[2023-05-10 22:01] VITALS: PULSE 99; RESP 20; O2SAT 96
--- NOTE | 2023-05-10 22:03 | PC.NURSE ---
Pain to low back. Patient reports she had injury approx. 10 days ago when assisting family member with moving. Reports that she had visit to urgent care and received steriods and muscle relaxer but is not getting relief.
--- NOTE | 2023-05-10 22:13 | ED_ITS ---
HPI - Back Pain/Injury General Chief Complaint: Back Pain/Injury Stated Complaint: Back Pain Time Seen by Provider: 05/10/23 22:00 Source: patient Mode of arrival: walk-in Limitations: no limitations History of Present Illness HPI Narrative: patient states she was lifting someone last and developed acute right lower back pain that has continued. She was seen at urgent care and prescribed lidoderm, zanaflex and states they have not help. She is not able to lay down because of pain. less pain sitting up. MD elicited complaint: Reports back pain Related Data Home Medications Medication Instructions Recorded Confirmed alprazolam 0.5 mg tablet 0.25 mg PO BID PRN anxiety 10/28/22 05/10/23 mirtazapine 15 mg tablet 15 mg PO BEDTIME 10/28/22 05/10/23 amlodipine 5 mg tablet 5 mg PO DAILY 05/10/23 05/10/23 hydroxyzine pamoate 50 mg capsule 50 mg PO Q8H PRN anxiety 05/10/23 05/10/23 lidocaine 5 % topical patch 1 patch topical Q24H 05/10/23 05/10/23 tizanidine 4 mg tablet 4 mg PO DAILY 05/10/23 05/10/23 Previous Rx's Medication Instructions Recorded meclizine 25 mg tablet 25 mg PO TID PRN dizziness #20 tabs 02/19/23 ondansetron 4 mg disintegrating 4 mg PO Q6H PRN nausea and 02/19/23 tablet vomiting #20 tabs Allergies Allergy/AdvReac Type Severity Reaction Status Date / Time codeine Allergy Intermediate Verified 05/10/23 21:26 Review of Systems ROS Status of ROS 10 or more systems reviewed and unremark able except as noted in history and below PFSH PFSH Social History Smoking status: Current every day smoker Exam Constitutional Vital Signs, click to edit/add: Last Vital Signs Temp 97.8 F 05/10/23 21:26 Pulse 99 H 05/10/23 22:01 Resp 20 05/10/23 22:01 BP 175/99 H 05/10/23 21:26 Pulse Ox 96 05/10/23 22:01 O2 Del Method Room Air 05/10/23 21:26 Common normals: no apparent distress, average body habitus, oriented x3, no limitations and healthy appearing Eye Common normals: EOMs intact bilaterally and conjunctivae normal Respiratory Common normals: normal respiratory effort, no retractions and no use of accessory muscles Cardio Common normals: regular rate, regular rhythm, S1 normal heart sound and S2 normal heart sound GI Common normals: Normal to inspection, nondistended, normoactive bowel sounds present, soft to palpation and non-tender Back & Pelvis Other: right lumbar paravertebral tenderness Extremity Common normals: normal to inspection and full ROM Neuro Common normals: oriented x3, CN's II-XII intact bilaterally, moves all extremities, no focal motor deficits and no sensory deficits noted Psych Appearance: grossly normal Course Vital Signs Vital signs: Vital Signs Temperature 97.8 F 05/10/23 21:26 Pulse Rate 989 H 05/10/23 21: Respiratory Rate 14 05/10/23 21:26 Blood Pressure 175/99 H 05/10/23 21:26 Pulse Oximetry 97 05/10/23 21:26 Oxygen Delivery Method Room Air 05/10/23 21:26 Temperature 97.8 F 05/10/23 21:26 Pulse Rate 99 H 05/10/23 22:01 Respiratory Rate 20 05/10/23 22:01 Blood Pressure 175/99 H 05/10/23 21:26 Pulse Oximetry 96 05/10/23 22:01 Oxygen Delivery Method Room Air 05/10/23 21:26 MDM - Back Pain/Injury MDM Narrative Medical decision making narrative: patient presents with back pain . right lower back after trying to lift a person. Has spasmodic pain. less pain when sitting but when she lays down the pain increases. Exam with tenderness of right lumbar paravertebral tenderness. Treated with magnesium and baclofen with improvement in pain. Discharged home . Advised to purchase magnesium OTC and to use Baclofen in place of zanaflex and follow up with her doctor Lab Data Labs: Lab Results 05/10/23 05/11/23 Range/Units 22:50 00:05 WBC 5.9 (4.0-11.0) 10^3/uL RBC 4.83 (4.20-5.40) 10^6/uL Hgb 10.8 L (12.0-16.0) g/dL Hct 36.0 (36.0-48.0) % MCV 74.5 L (81.0-99.0) fL MCH 22.4 L (26.7-34.0) pg MCHC 30.0 (29.9-35.2) g/dL RDW 16.8 H (11.0-15.0) % Plt Count 183 (150-450) 10^3/uL MPV 10.0 (9.5-13.5) fL Neut % (Auto) 76.2 H (43.0-75.0) % Lymph % (Auto) 14.8 L (20.5-60.0) % [place] % (Auto) 7.3 (1.7-12.0) % Eos % (Auto) 0.7 L (0.9-7.0) % Baso % (Auto) 0.7 (0.2-2.0) % Neut # (Auto) 4.5 (1.4-6.5) 10^3/uL Lymph # (Auto) 0.9 L (1.2-3.8) 10^3/uL [place] # (Auto) 0.4 (0.3-0.8) 10^3/uL Eos # (Auto) 0.0 (0.0-0.7) 10^3/uL Baso # (Auto) 0.0 (0.0-0.1) 10^3/uL Abs Immat Gran (auto) 0.02 (0.00-0.03) 10^3/uL Imm/Tot Granulo (auto) 0.3 (0.0-0.5) % ESR 40 H (<=30) mm/hr Sodium 144 (136-145) mmol/L Potassium 3.5 (3.5-5.1) mmol/L Chloride 107 (98-107) mmol/L Carbon Dioxide 28.8 (21.0-32.0) mmol/L Anion Gap 11.7 BUN 14.0 (7.0-18.0) mg/dL Creatinine 0.57 (0.55-1.02) mg/dL Est GFR ( Amer) >60 (>=60) Est GFR (Non-Af Amer) >60 (>=60) BUN/Creatinine Ratio 24.6 Glucose 148 H (74-106) mg/dL Calcium 8.7 (8.5-10.1) mg/dL C-Reactive Protein <0.50 (<=0.50) mg/dL Urine Color Lt. yellow (YELLOW) Urine Clarity Clear (CLEAR) Urine pH 7.0 (5.0-9.0) Ur Specific [place] 1.010 (1.005-1.025) Urine Protein Negative (NEG/TRACE) mg/dL Urine Glucose (UA) Negative (NEGATIVE) mg/dL Urine Ketones Negative (NEGATIVE) mg/dL Urine Occult Blood Negative (NEGATIVE) Urine Nitrite Negative (NEGATIVE) Urine Bilirubin Negative (NEGATIVE) Urine Urobilinogen 1.0 (0.2-1.0) EU/dL Ur Leukocyte Esterase Negative (NEGATIVE) Urine RBC 0-2 (0-2) #/HPF Urine WBC None seen (NONE SEEN) #/HPF Ur Squamous Epith Cells None seen (NONE/RARE) #/LPF Urine Crystals None seen (None Seen) #/HPF Urine Bacteria None seen (NONE SEEN) #/HPF Urine Casts None seen (NONE SEEN) #/LPF Urine Mucus None seen (NONE SEEN) Discharge Plan Discharge Chief Complaint: Back Pain/Injury Clinical Impression: Strain of lumbar region Patient Disposition: Home, Self-Care Prescriptions / Home Meds: No Action alprazolam 0.5 mg tablet 0.25 mg PO BID PRN (Reason: anxiety) mirtazapine 15 mg tablet 15 mg PO BEDTIME ondansetron 4 mg tablet,disintegrating 4 mg PO Q6H PRN (Reason: nausea and vomiting) Qty: 20 0RF meclizine 25 mg tablet 25 mg PO TID PRN (Reason: dizziness) Qty: 20 0RF lidocaine 5 % adhesive patch,medicated 1 patch topical Q24H amlodipine 5 mg tablet 5 mg PO DAILY hydroxyzine pamoate 50 mg capsule 50 mg PO Q8H PRN (Reason: anxiety) tizanidine 4 mg tablet 4 mg PO DAILY Instructions: Muscle Strain (DC), Low Back Strain (ED) Additional Instructions: discontinue tizanidine and replace with baclofen. follow up with your doctor in 2-3 days Stand Alone Forms: Portal Instructions Referrals: Physician,Non-Staff, MD [Primary Care Provider] - 1 week
[2023-05-10] MEDS: MAGNESIUM SULFATE IN WATER 2 GM/50 ML PREMIX IV (23:01)
[2023-05-10 23:36] LABS: Basophils Percent Auto 0.7 % (0.2-2.0); Eosinophils Percent Auto 0.7 % (0.9-7.0); Hemoglobin 10.8 g/dL (12.0-16.0); Immature Granulocytes Abs Auto 0.02 10^3/uL (0.00-0.03); Immature Granulocytes Pct Auto 0.3 % (0.0-0.5); Lymphocytes Absolute Auto 0.9 10^3/uL (1.2-3.8); Lymphocytes Percent Auto 14.8 % (20.5-60.0); Mean Corpuscular Hemoglobin 22.4 pg (26.7-34.0); Mean Corpuscular Volume 74.5 fL (81.0-99.0); Monocytes Absolute Auto 0.4 10^3/uL (0.3-0.8); Monocytes Percent Auto 7.3 % (1.7-12.0); Neutrophils Absolute Auto 4.5 10^3/uL (1.4-6.5); Neutrophils Percent Auto 76.2 % (43.0-75.0); Platelet Count 183 10^3/uL (150-450); Red Blood Count 4.83 10^6/uL (4.20-5.40); Red Cell Distribution Width 16.8 % (11.0-15.0); White Blood Count 5.9 10^3/uL (4.0-11.0)
[2023-05-10] MEDS: BACLOFEN 10 MG TABLET PO (23:49)
[2023-05-10 23:52] LABS: Anion Gap 11.7; BUN Creatinine Ratio 24.6; Calcium 8.7 mg/dL (8.5-10.1); Carbon Dioxide 28.8 mmol/L (21.0-32.0); Chloride 107 mmol/L (98-107); Estimated GFR (African America >60 (>=60); Estimated GFR (Non-African Ame >60 (>=60); Glucose 148 mg/dL (74-106); Potassium 3.5 mmol/L (3.5-5.1); Sodium 144 mmol/L (136-145)
[2023-05-11 00:09] LABS: C Reactive Protein <0.50 mg/dL (<=0.50)
[2023-05-11 00:21] LABS: Bilirubin Urine NEGATIVE (NEGATIVE); Blood Urine NEGATIVE (NEGATIVE); Clarity Urine CLEAR (CLEAR); Color Urine LT. YELLOW (YELLOW); Glucose Urine UA NEGATIVE (NEGATIVE); Ketones Urine NEGATIVE (NEGATIVE); Leukocyte Esterase Urine NEGATIVE (NEGATIVE); Nitrite Urine NEGATIVE (NEGATIVE); Protein Urine NEGATIVE (NEG/TRACE)
[2023-05-11 00:22] LABS: Bacteria Urine NONE SEEN #/HPF (NONE SEEN); Cast Seen? NONE SEEN #/LPF (NONE SEEN); Crystals Seen? None Seen #/HPF (None Seen); Mucus Urine NONE SEEN (NONE SEEN); RBC Urine 0-2 #/HPF (0-2); Squamous Epithelial Cell Urine NONE SEEN #/LPF (NONE/RARE); WBC Urine NONE SEEN #/HPF (NONE SEEN)
[2023-05-11 00:26] LABS: Erythrocyte Sedimentation Rate 40 mm/hr (<=30)
== END 2023-05-11 00:46 | disposition home or self-care (01) ==
PROVIDERS: Emergency Provider Internal Medicine
DX: S39.012A Strain of muscle, fascia and tendon of lower back, initial encounter (principal); F17.210 Nicotine dependence, cigarettes, uncomplicated; X50.9XXA Other and unspecified overexertion or strenuous movements or postures, initial encounter
CPT/HCPCS: 36415; 80048; 81001; 85025; 85652; 86140; 96365; 99284; J3475

== ENCOUNTER 2023-06-21 10:07 | Outpatient (OUT) | payer MEDICARE, SELFPAY ==
--- OUTSIDE RECORDS SUMMARY | 2023-06-21 10:14 | XMS_ITS | CCD ---
Author Organization [facility] Care Team Providers Care Missile Inspector Name Role Phone Heather Nunez Unavailable MIKE GENAO Primary Care Physician [phone] [facility] [place] Primary Care Unavailable ORIANA DELGADO Attending Unavailable ORIANA DELGADO Consulting Unavailable ORIANA DELGADO Admitting Unavailable FRANCIS HOLDEN Admitting [facility] Primary Care Unavailable FRANCIS HOLDEN Attending Unavailable FRANCIS HOLDEN Consulting Unavailable TATIANNA Amezquita Attending Provider DO Mike Genao Primary Care Provider [phone] DO Mike Genao Attending Provider Mike Genao Admitting Unavailable Mike Genao Primary Care Unavailable Mike Genao Attending Unavailable Mike Genao Primary Care Unavailable Ric Kerr Admitting Unavailab Ric Hernandez Attending Unavailab Mike Fajardo Primary Care Unavailable Ritchie Amezquita Admitting Unavail able Ritchie Amezquita Attending Unavail able Milla Skinner Unavailable MIKE GENAO Attending Unavailable MIKE GENAO Referring Unavailable QASIM CHAUDHRY Attending Unavailable MIKE GENAO Referring Unavailable QASIM CHAUDHRY Referring Unavailable MIKE GENAO Referring Unavailable RITCHIE AMEZQUITA Attending Unava Tonya Blanc Attending Unavailable Allergies Allergy Classification Reported Allergen(s) Allergy Type Date of Onset Reaction(s) Facility (6 sources) Codeine; Translations: [codeine] Drug Allergy stomach upset, unknown [facility] (1 source) Codeine Drug Allergy 0 [facility] (1 source) Codeine Drug Allergy 2 [facility] Medications Current Medications Medication Drug Class(es) [...] 03/01/19 Status: Ordered take 1 capsule by [facility] every eight hours hydrOXYzine Pamoate 50 MG [...] Episodic Other aftercare (1 source) Other terminal superintendent (current) drug therapy; Translations: [OTH DOCK MANAGER CURRENT DRUG THERAPY] Onset: 12-09-2021 Episodic Urinary tract infections (3 sources) Urinary tract infection, site not specified Onset: 10-07-2021 Resolved: 10-07-2021 Episodic Results Test Name Value Interpretation Reference Range Facility Reminderson 06-18-2023 Reminders - From: Jackie Zarate To: GISELLE [...] failure if she does not follow-up. Thanks, [facility] certified letter prepared and mailed to patient [...] renal scan. - From: Milla Odonnell To: EU - Recalls Lue; Sent: 03/02/2023 14:12:42 EST ! Show up: 04/29/2023 14:12:00 EST Pt called in and requested Renal Scan be sent to [facility]. Order was faxed today. - From: Jenny Del Rio (EU - Recalls Lue) To: EU - Pending Results; Sent: 06/16/2023 14:06:05 EDT ! Due Date/Time: 06/28/2023 14:06:00 EDT - From: Marni Mak MA (EU - Pending Results) To: EU - Recalls Lue; Sent: 06/18/2023 12:36:12 EDT Show up: 06/18/2023 12:36:00 EDT Subject: RE: Call pt for decision on renal scan Normal [facility] XR LUMBAR SPINE 2-3 VIEWSon 05-27-2023 XR LUMBAR SPINE 2-3 VIEWS FINDINGS: Lumbar vertebral bodies normal in height. 4 mm anterolisthesis, L4 on L5. Diffuse disc space narrowing L5-S1. 3.6 mm retrolisthesis L5 on S1. No fracture. No bone lesion. IMPRESSION: Grade 1 L4 spondylolisthesis. L5 retrolisthesis. Moderate degenerative change lower lumbar spine. ELECTRONICALLY SIGNED BY: Hernandez Nur MD Normal Not Available ECH echo transthoracicon ECH echo transthoracic [facility] [place] [address] Echocardiogram Signed Patient: Christal Ervin MR#: [id number] : 1950 Acct:[id number] Age/Sex: 72 / F ADM Date: 04/08/23 Loc: Room: Type: [facility] Attending Dr: Mike Genao DO Ordering Provider: Mike Genao DO Date of Service: 04/08/23/ ECH/ECH echo transthoracic: PALPITATIONS Copies to: MD Mike [...] Signed By: Martin Mcnulty MD 04/08/23 1646 [facility] [place] holter monitor recordingo n 03-11-2023 CA holter monitor recording [facility] [place] [address] Holter Monitor Report Signed Patient: Christal Ervin MR#: [id number] : 1950 Acct:[id number] Age/Sex: 72 / F ADM Date: 03/08/23 Loc: Room: Type: [facility] Attending Dr: Ritchie CAMPUZANO Copies to: Ritchie Hauser MD Ordering Provider: Ritchie CAMPUZANO Date of Service: 03/08/23 CO/CO holter monitor recording: i70.91, h81.4 ORDERING: TATIANNA [...] MD 03/11/23 1726 Signed By: 03/13/23 1239 [facility] Patient Letter FTon 2022 Patient Letter [facility] [place] 09, 2023 CHRISTAL ERVIN [address] [place] [id number] : 1950 Sent via certified and regular [...] Sincerely, Tonya Bundy M.D. [facility] [address] [place] [address] Normal [facility] RAD - Ultrasound Reporton RAD - Ultrasound Report [id number] #[id number]:127 Normal [facility] Ambulatory Visit Summaryon 0 09-02-2022 Ambulatory Visit Summary CHRISTAL ERVIN :1950 Visit Date:09/02/2022 Ambulatory Visit Instructions Your Diagnosis Congenital occlusion of ureteropelvic junction (UPJ), Hydronephrosis with ureteropelvic junction obstruction Nephrolithiasis History of UTI Tests Performed Urnls Dip Stick Auto w/o Microscopy POC 67825 Your Care Team Attending Physician - Gregor LUIS, Tonya Vo Primary Care Physician - MIKE GENAO DO This Is Your Medications List Contact [...] the Following Appointments Follow Up with Gregor LUIS, Tonya Vo, KENNEDY, URO When: Where: Medications What How Much [...] Urnls Dip Stick Auto w/o Microscopy POC 48855 (09/02/2022) Bilirubin Urine Dipstick - Negative Blood Urine Dipstick - Negative Glucose Urine Dipstick - Negative Ketones Urine Dipstick - Negative Leukocytes Urine Dipstick - Negative Nitrite Urine Dipstick - Negative Protein Urine Dipstick - Negative Specific Griffith Urine Dipstick - <=1.005 Urine Appearance Urine [...] Do no (more content not included)... Normal [facility] Patient Educationon 09-03-19 Patient Education Nephrology Dietary [...] Spinach (cooked), rhubarb, beets, sweet potatoes, and [place] Islander chard. ? Peanuts. ? Potato chips, liberian fries, and baked potatoes with skin on. ? Nuts and nut products. ? Chocolate. ? If you regularly take a diuretic medicine, make sure to eat at least 1 or 2 servings of fruits or vegetables that are high in potassium each day. These include: ? Avocado. ? Banana. ? [place], prune, carrot, or tomato juice. ? Baked [...] fish oil, or vitamin B6. ? Take pbzm-wsa-dgmcaqa and prescription medicines only as told by your health care provider. These include supplements. What foods should I limit? Limit your in (more content not included)... Normal [facility] Screenson 09-02-2022 Screens [id number] #[id number]:127 Normal [facility] Urology Office/Clinic Noteon 09-02-2022 Urology Office/Clinic Note [...] will order NM renal scan to better counselor supervisor on management options. I spent 22 minutes [...] the patient. Follow-up With When Contact Information Tonya Bundy MD, URL, URO Additional Instructions: pt to call [...] ASVD (art (more content not included)... Normal [facility] Comment on above: Result Comment: Elec tronically [...] by: CATINA KHANNA Date: 2022-08-26 10:33 Normal [facility] CBC AUTO DIFFon 12-07-2021 BASO # 0.0 103/ul Normal 0.0-0.1 [facility] Comment on above: Performed By: #### C BC #### [facility] [address] [place] [address] Dr. Senait Pisano Basophils/100 WBC (Bld) 1.0 % Normal 0.2-2.0 [facility] Comment on above: Performed By: #### C BC #### [facility] [address] [place] [address] Dr. Senait Pisano EO # 0.1 103/ul Normal 0.0-0.7 [facility] Comment on above: Performed By: #### C BC #### [facility] [address] [place] [address] Dr. Senait Pisano Eosinophils/100 WBC (Bld) 2.0 % Normal 0.9-7.0 [facility] Comment on above: Performed By: #### C BC #### [facility] [address] [place] [address] Dr. Senait Pisano Erythrocyte distribution width (RBC) [Ratio] 15.7 % Critically high 11.0-15.0 [facility] Comment on above: Performed By: #### C BC #### [facility] [address] [place] [address] Dr. Senait Pisano Hematocrit (Bld) [Volume fraction] 38.8 % Normal 36.0-48.0 [facility] Comment on above: Performed By: #### C BC #### [facility] [address] [place] [address] Dr. Senait Pisano Hemoglobin (Bld) [Mass/Vol] 12.0 g/dL Normal 12.0-16.0 [facility] Comment on above: Performed By: #### C BC #### [facility] [address] [place] [address] Dr. Senait Pisano IG # 0.01 10e3/ul Normal 0.00-0.03 [facility] Comment on above: Performed By: #### C BC #### [facility] [address] [place] [address] Dr. Senait Pisano IG % 0.2 % Normal 0.0-0.5 [facility] Comment on above: Performed By: #### C BC #### [facility] [address] [place] [address] Dr. Senait Pisano LYMPH # 0.9 103/ul Critically low 1.2-3.8 [facility] Comment on above: Performed By: #### C BC #### [facility] [address] [place] [address] Dr. Senait Pisano Lymphocytes/100 WBC (Bld) 20.8 % Normal 20.5-60.0 [facility] Comment on above: Performed By: #### C BC #### [facility] [address] [place] [address] Dr. Senait Pisano MANUAL DIFF REQ NO Normal [facility] Comment on above: Performed By: #### C BC #### [facility] [address] [place] [address] Dr. Sneait Pisano MCH (RBC) [Entitic mass] 23.6 pg Critically low 26.7-34.0 [facility] Comment on above: Performed By: #### C BC #### [facility] [address] [place] [address] Dr. Senait Pisano MCHC (RBC) [Mass/Vol] 30.9 g/dL Normal 29.9-35.2 [facility] Comment on above: Performed By: #### C BC #### [facility] [address] [address] [address] Senait Pisano MCV (RBC) [Entitic vol] 76.4 fL Critically low 81.0-99.0 [facility] Comment on above: Performed By: #### C BC #### [facility] [address] [address] [address] Senait Pisano MONO # 0.5 103/ul Normal 0.3-0.8 [facility] Comment on above: Performed By: #### C BC #### [facility] [address] [place] [address] Dr. Senait Pisano Monocytes/100 WBC (Bld) 13.2 % Critically high 1.7-12.0 [facility] Comment on above: Performed By: #### C BC #### [facility] [address] [place] [address] Dr. Senait Pisano NEUT # 2.6 103/ul Normal 1.4-6.5 [facility] Comment on above: Performed By: #### C BC #### [facility] [address] [place] [address] Dr. Senait Pisano Neutrophils/100 WBC (Bld) 62.8 % Normal 43.0-75.0 [facility] Comment on above: Performed By: #### C BC #### [facility] [address] [place] [address] Dr. Senait Pisano Platelet mean volume (Bld) [Entitic vol] 10.0 fL Normal 9.5-13.5 [facility] Comment on above: Performed By: #### C BC #### [facility] [address] [place] [address] Dr. Senait Pisano PLT 177 103/ul Normal 150-450 [facility] Comment on above: Performed By: #### C BC #### [facility] [address] [place] [address] Dr. Senait Pisano RBC 5.08 106/ul Normal 4.20-5.40 [facility] Comment on above: Performed By: #### C BC #### [facility] [address] [address] [address] Senait Pisano WBC 4.1 103/ul Normal 4.0-11.0 [facility] Comment on above: Performed By: #### C BC #### [facility] [address] [address] [address] Senait Pisano PROF CHEM 8 (BAS METB)on Anion gap [Moles/Vol] 8.3 mmol/L Normal [facility] Comment on above: Performed By: #### B MP #### [facility] [address] [place] [address] Dr. Senait Pisano Calcium [Mass/Vol] 8.0 mg/dL Critically low 8.5-10.1 [facility] Comment on above: Performed By: #### B MP #### [facility] [address] [place] [address] Dr. Senait Pisano Chloride [Moles/Vol] 105 mmol/L Normal 98-107 [facility] Comment on above: Performed By: #### B MP #### [facility] [address] [place] [address] Dr. Senait Pisano CO2 [Moles/Vol] 28.6 mmol/L Normal 21.0-32.0 [facility] Comment on above: Performed By: #### B MP #### [facility] [address] [address] [address] Senait Pisano Creatinine [Mass/Vol] 0.68 mg/dL Normal 0.55-1.02 [facility] Comment on above: Performed By: #### B MP #### [facility] [address] [place] [address] Dr. Senait Pisano EGFR-AF TRISTANIAN >60 Normal >=60 [facility] Comment on above: Performed By: #### B MP #### [facility] [address] [place] [address] Dr. Senait Pisano EGFR-NON AF TRISTANIAN >60 Normal >=60 [facility] Comment on above: Performed By: #### B MP #### [facility] [address] [address] [address] Senait Pisano Glucose [Mass/Vol] 192 mg/dL Critically high 74-106 [facility] Comment on above: Performed By: #### B MP #### [facility] [address] [address] [address] Senait Pisano Potassium [Moles/Vol] 3.9 mmol/L Normal 3.5-5.1 [facility] Comment on above: Performed By: #### B MP #### [facility] [address] [address] [address] Senait Pisano Sodium [Moles/Vol] 138 mmol/L Normal 136-145 [facility] Comment on above: Performed By: #### B MP #### [facility] [address] [address] [address] Senait Pisano Urea nitrogen [Mass/Vol] 9.0 mg/dL Normal 7.0-18.0 [facility] Comment on above: Performed By: #### B MP #### [facility] [address] [address] [address] Senait Pisano Urea nitrogen/Creatinine [Mass ratio] 13.2 mg/mg Normal [facility] Comment on above: Performed By: #### B MP #### [facility] [address] [address] [address] Senait Pisano Quick Fluon 10-07-2021 FLUAV Ab CF (S) [Titer] Negative [employer] Other FLUBV Ab CF (S) [Titer] Negative [employer] Other Urinalysis - AUTOMATEDon Appearance (U) CLOUDY [employer] Other Bilirubin Ql (U) Negative [employer] Other Color (U) YELLOW [employer] Other Glucose Ql (U) Negative [employer] Other Hemoglobin Ql (U) MODERATE avVenta C oast [employer] Forest Other Ketones Ql (U) Negative [employer] Other Leukocyte esterase Test strip Ql (U) LARGE [employer] Other Nitrite Ql (U) Positive [employer] Other pH (U) 5.5 [pH] DNA Guide Other Protein Ql (U) 30 [employer] Other Specific gravity (U) [Rel density] <1.005 [employer] Other Urobilinogen (U) [Mass/Vol] 0.2 mg/dL [employer] Guide Other Urinalysis - AUTOMATED [employer] Other Urine Cultureon 10-07-2021 Urine Culture >100,000 [employer] Other Urine Culture <16 Susceptible [employer] Other Urine Culture >16 Resistant [employer] Other Urine Culture <4 Susceptible [employer] Other Urine Culture 4 Susceptible [employer]ctions Other Urine Culture <2 Susceptible [employer] Other Urine Culture <1 Susceptible [employer] Other Urine Culture <0.5 Susceptible [employer] Other Urine Culture <32 Susceptible [employer] Other Urine Culture <2/38 Susceptible [employer] Other Complete Blood Count with Au to Diffon 04-17-2021 Basophils (Bld) [#/Vol] 0.08 10*3/uL Normal 0.00-0.20 [facility] [employer] Comment on above: Performed By: #### C BCAD, CMP #### [facility] [address], [place] [id number] Basophils/100 WBC (Bld) 1.4 % Normal [facility] [employer] [facility] Comment on above: Performed By: #### Shalom VILLATORO, CMP #### [facility] [address], [place] [id number] Eosinophils (Bld) [#/Vol] 0.13 10*3/uL Normal 0.02-0.50 [facility] [employer] [facility] Comment on above: Performed By: #### Shalom VILLATORO, CMP #### [facility] [address], [place] [id number] Eosinophils/100 WBC (Bld) 2.3 % Normal [facility] [employer] [facility] Comment on above: Performed By: #### Shalom VILLATORO, CMP #### [facility] [address], [place] [id number] Erythrocyte distribution width (RBC) [Ratio] 15.6 % High 11.0-15.0 [facility] [employer] [facility] Comment on above: Performed By: #### Shalom VILLATORO, CMP #### [facility] [address], [place] [id number] Hematocrit (Bld) [Volume fraction] 42.8 % Normal 35.0-47.0 [facility] [employer] [facility] Comment on above: Performed By: #### Shalom VILLATORO, CMP #### [facility] [address], [place] [id number] Hemoglobin (Bld) [Mass/Vol] 13.3 g/dL Normal 11.6-15.5 [facility] [employer] [facility] Comment on above: Performed By: #### Shalom VILLATORO, CMP #### [facility] [address], [place] [id number] Lymphocytes (Bld) [#/Vol] 1.4 10*3/uL Normal 0.9-3.9 [facility] [employer] [facility] Comment on above: Performed By: #### Shalom VILLATORO, CMP #### [facility] [address], [place] [id number] Lymphocytes/100 WBC (Bld) 25.0 % Normal [facility] [employer] Comment on above: Performed By: #### Shalom VILLATORO, CMP #### [facility] [address], [place] [id number] MCH (RBC) [Entitic mass] 23.7 pg Low 27.0-33.0 [facility] Comment on above: Performed By: #### Shalom VILLATORO, CMP #### [facility] [address], [place] [id number] MCHC (RBC) [Mass/Vol] 31.1 g/dL Low 32.0-36.0 [facility] Comment on above: Performed By: #### Shalom VILLATORO, CMP #### [facility] [address], [place] [id number] MCV (RBC) [Entitic vol] 76 fL Low 80-100 [facility] Comment on above: Performed By: #### Shalom VILLATORO, CMP #### [facility] [address], [place] [id number] Monocytes (Bld) [#/Vol] 0.8 10*3/uL Normal 0.2-0.9 [facility] Comment on above: Performed By: #### Shalom VILLATORO, CMP #### [facility] [address], [place] [id number] Monocytes/100 WBC (Bld) 14.3 % Normal [facility] Comment on above: Performed By: #### Shalom VILLATORO, CMP #### [facility] [address], [place] [id number] Neutrophils (Bld) [#/Vol] 3.2 10*3/uL Normal 1.5-7.8 [facility] Comment on above: Performed By: #### Shalom VILLATORO, CMP #### [facility] [address], [place] [id number] Neutrophils/100 WBC (Bld) 56.5 % Normal [facility] Comment on above: Performed By: #### C IRVING, CMP #### [facility] [address], [place] [id number] Platelet mean volume (Bld) [Entitic vol] 11.10 fL Normal 7.50-12.50 [facility] Specialist Comment on above: Performed By: #### C IRVING, CMP #### [facility] [address], [place] [id number] Platelets (Bld) [#/Vol] 220 10*3/uL Normal 140-400 [facility] Comment on above: Performed By: #### C IRVING, CMP #### [facility] [address], [place] [id number] RBC (Bld) [#/Vol] 5.61 10*6/uL High 3.90-5.20 [facility] Comment on above: Performed By: #### C BCAD, CMP #### [facility] [address], [place] [id number] RDW-SD 42.5 fL Normal 37.0-50.0 [facility] Comment on above: Performed By: #### C BCALoly, CMP #### [facility] [address], [place] [id number] WBC (Bld) [#/Vol] 5.6 10*3/uL Normal 3.8-11.0 [facility] Comment on above: Performed By: #### C BCALoly, CMP #### [facility] [address], [place] [id number] Comprehensive Metabolic Pane [facility] 04-17-2021 Albumin [Mass/Vol] 4.2 g/dL Normal 3.6-5.1 [facility] Comment on above: Performed By: #### C BCALoly, CMP #### [facility] [address], [place] [id number] Albumin/Globulin [Mass ratio] 1.4 {ratio} Normal 1.0-2.5 [facility] Comment on above: Performed By: #### C BCAD, CMP #### [facility] [address] [place], [place] [id number] ALP [Catalytic activity/Vol] 138 U/L High 35-119 [facility] Comment on above: Performed By: #### C BCAD, CMP #### [facility] [address], [place] [id number] ALT [Catalytic activity/Vol] 24 U/L Normal 6-33 [facility] Comment on above: Result Comment: 02/26 Female reference range changed. Performed By: #### C BCAD, CMP #### [facility] [address], [place] [id number] Anion gap [Moles/Vol] 19 mmol/L Normal 12-20 [facility] Comment on above: Result Comment: Gosia ctive 04/03/2019 reference range changed. Performed By: #### C BCAD, CMP #### [facility] [address], [place] [id number] AST [Catalytic activity/Vol] 30 U/L Normal 9-34 [facility] Comment on above: Performed By: #### C BCAD, CMP #### [facility] [address], [place] [id number] BUN/CREA 20 Ratio Normal 6-22 [facility] Comment on above: Performed By: #### C BCAD, CMP #### [facility] [address], [place] [id number] Calcium [Mass/Vol] 9.0 mg/dL Normal 8.6-10.2 [facility] Comment on above: Performed By: #### C BCAD, CMP #### [facility] [address], [place] [id number] Chloride [Moles/Vol] 103 mmol/L Normal 98-107 [facility] Comment on above: Performed By: #### C BCAD, CMP #### [facility] [address], [place] [id number] CO2 [Moles/Vol] 22 mmol/L Normal 20-31 [facility] Comment on above: Performed By: #### C BCAD, CMP #### [facility] [address], [place] [id number] Creatinine [Mass/Vol] 0.6 mg/dL Normal 0.6-1.4 [facility] Comment on above: Performed By: #### C BCAD, CMP #### [facility] [address], [place] [id number] eGFRAA 111 mL/min/1.73m2 Normal >60 [facility] Comment on above: Performed By: #### C BCAD, CMP #### [facility] [address], [place] [id number] eGFRNAA 92 mL/min/1.73m2 Normal >60 [facility] [employer] [facility] Comment on above: Performed By: #### C BCAD, CMP #### [facility] [address], [place] [id number] Globulin (S) [Mass/Vol] 3.0 g/dL Normal 1.9-3.7 [facility] Comment on above: Performed By: #### C BCAD, CMP #### [facility] [address] [place], [place] [id number] Glucose [Mass/Vol] 113 mg/dL High 65-99 [facility] Comment on above: Result Comment: For FASTING Glucose --- ADA reference ranges: Normal 65-99 mg/dl Prediabetes 100-125 Diabetes >/= 126 Performed By: #### C BCAD, CMP #### [facility] [address] [place], [place] [id number] Potassium [Moles/Vol] 4.3 mmol/L Normal 3.5-5.5 [facility] Comment on above: Performed By: #### C BCAD, CMP #### [facility] [address], [place] [id number] Protein [Mass/Vol] 7.2 g/dL Normal 6.1-8.1 [facility] Comment on above: Performed By: #### C BCAD, CMP #### [facility] [address], [place] [id number] Sodium [Moles/Vol] 139 mmol/L Normal 135-146 [facility] Comment on above: Performed By: #### C BCAD, CMP #### [facility] [address], [place] [id number] TBIL <0.3 Normal [facility] Comment on above: Performed By: #### C BCAD, CMP #### [facility] [address] [place], [place] [id number] Urea nitrogen [Mass/Vol] 13 mg/dL Normal 7-25 [facility] Comment on above: Performed By: #### C BCAD, CMP #### [facility] [address] [place], [place] [id number] Hemoglobin A1Con 04-17-2021 EAG 119.76 Normal [facility] Comment on above: Performed By: #### A 1C #### [facility] [address], [place] [id number] HbA1c (Bld) [Mass fraction] 5.8 % Normal 4.0-6.0 [facility] Comment on above: Performed By: #### A 1C #### [facility] [address] [place] [id number] Vital Signs Date Time Vital Sign Value Performing Clinician Facility 05-07-2023 09:00-0500 Body height 162.56 cm Milla Skinner Other [facility] Other 05-07-2023 09:00-0500 Body mass index (BMI) [Ratio] 28.25 kg/m2 Milla Skinner Other [facility] Other 05-07-2023 09:00-0500 Body temperature 98 [degF] Milla Skinner Other [facility] Other 05-07-2023 09:00-0500 Body weight 74.66 kg Milla Skinner Other [facility] Other 05-07-2023 09:00-0500 Diastolic blood pressure 80 mm[Hg] Milla Skinner Other [facility] Other 05-07-2023 09:00-0500 Respiratory rate 18 /min Milla Skinner Other [facility] Other 05-07-2023 09:00-0500 SaO2% (BldA) [Mass fraction] 98 % Milla Skinner Other [facility] Other 05-07-2023 09:00-0500 Systolic blood pressure 136 mm[Hg] Milla Skinner Other [facility] Other 09-02-2022 10:45-0400 Blood Pressure Location Tonya Lue [facility] 09-02-2022 10:45-0400 Diastolic blood pressure 83 mm[Hg] Tonya Lue [facility] 09-02-2022 10:45-0400 Heart rate 100 /min Tonya Lue [facility] 09-02-2022 10:45-0400 Systolic blood pressure 150 mm[Hg] Tonya Lue [facility] 10-07-2021 10:00-0400 Body height 162.56 cm Heatehr Mayra Other [facility] Other 10-07-2021 10:00-0400 Body mass index (BMI) [Ratio] 29.01 kg/m2 Heather Alcazarmond Other [facility] Other 10-07-2021 10:00-0400 Body temperature 99.6 [degF] Heather Alcazarmond Other [facility] Other 10-07-2021 10:00-0400 Body weight 76.66 kg Heather Mayra Other [facility] Other 10-07-2021 10:00-0400 SaO2% (BldA) [Mass fraction] 95 % Heather Mayra Other [facility] Other Encounters Encounter Date Encounter Type Care Provider Facility Start: 05-27-2023 End: 05-28-2023 ambulatory QASIM CHAUDHRY Not Available Start: 05-07-2023 End: 05-07-2023 ambulatory Milla Skinner Other [facility] Other Start: 05-07-2023 Office outpatient vi sit 25 minutes [facility] Start: 04-19-2023 End: 04-19-2023 ambulatory MIKE J VASCHAK Not Available Start: 04-08-2023 End: 04-08-2023 ambulatory Mike Vaschak Facility:[facility] Start: 04-08-2023 End: 04-08-2023 ambulatory DO Mike Vaschak Work Phone: [facility] Work Phone: Start: 04-08-2023 End: 04-08-2023 Patient encounter procedure DO Mike Vaschak Work Phone: [facility] Work Phone: Start: 03-08-2023 End: 03-08-2023 ambulatory Mike Vaschak Facility:[facility] Start: 03-08-2023 End: 03-08-2023 ambulatory DO Mike Vaschak Work Phone: [facility] Work Phone: Start: 03-08-2023 End: 03-08-2023 Patient encounter procedure DO Mike Vaschak Work Phone: [facility] Work Phone: Start: 02-23-2023 End: 02-23-2023 ambulatory MIKE J VASCHAK Not Available Start: 02-04-2023 ambulatory Mike Vaschak Facility :[facility] Start: 09-02-2022 End: 09-03-2022 ambulatory Tonya Bundy Facility:[facility] Start: 09-02-2022 End: 09-02-2022 Patient encounter procedure Tonya Bundy [facility] Start: 08-26-2022 ambulatory FRANCIS HOLDEN Facility : Start: 12-07-2021 End: 12-07-[address] DOCTOR GOMES Facility: Start: 10-07-2021 End: 10-07-2021 ambulatory Heather Nunez Other [facility] Other Start: 10-07-2021 Office outpatient vi sit 15 minutes Heather Nunez [facility] Procedures Date Procedure Procedure Detail Performing Clinician Start: 10-07-2021 Piperacillin/tazobactam Heather Nunez Other Start: 05-23-2013 Cysto, UD, B/L RG Tonya Lue Bladder Sling 1 Tonya Lue Comment on above: Dr. Graham Cholecystectomy Tonya Lue Hysterectomy Tonya Lue Knee region structur e (body structure) Tonya Lue Comment on above: B/L Lumbar (qualifier value) Sulma hy Lue Immunizations Immunization Date Immunization Notes Care Provider [facility] 02-25-2022 influenza virus vacc ine, unspecified formulation Tonya Lue [facility] 02-28-2021 SARS-CoV-2 (COVID-19 ) Ad26 vaccine, recombinant Tonya Lue [facility] 02-13-2021 influenza virus vacc ine, unspecified formulation Tonya Lue [facility] 07-06-2020 SARS-CoV-2 (COVID-19 ) mRNA-1273 vaccine Tonya Lue [facility] 06-27-2020 SARS-CoV-2 (COVID-19 ) Ad26 vaccine, recombinant Tonya Lue [facility] 06-08-2020 SARS-CoV-2 (COVID-19 ) mRNA-1273 vaccine Tonya Lue [facility] 05-27-2020 SARS-CoV-2 (COVID-19 ) Ad26 vaccine, recombinant Tonya Lue [facility] 02-01-2020 influenza virus vacc ine, unspecified formulation Tonya Lue [facility] 12-27-2018 influenza virus vacc ine, unspecified formulation Tonya Lue [facility] 11-08-2017 pneumococcal polysaccharide vaccine, 23 valent Tonya Lue [facility] 11-25-2016 influenza virus vacc ine, unspecified formulation Tonya Lue [facility] 01-20-2016 influenza virus vacc ine, unspecified formulation Tonya Lue [facility] 02-08-2015 tetanus toxoid, redu herbert diphtheria toxoid, and acellular pertussis vaccine, adsorbed Tonya Lue [facility] Payers Date Payer Category Payer Self-pay [id number] 1959 Medicare [id number] 2.1 [id number] 1959 Unknown [id number] 2.1 [id number] 1950 Unknown [id number] 2.16.84 [id number] 1950 Unknown [id number] 2.16.84 [id number] 1950 Unknown [id number] 2.16.84 [id number] 1950 Unknown [id number] 2.16.84 0.1.886476.3.579.2.1259 1950 Unknown [id number] 2.16.84 0.1.914233.3.579.2.1259 1950 Unknown [id number] 2.16.840 .1.111784.3.579.2.1259 1950 Unknown [id number] 2.16.8 [id number] Unknown Kristin BC/BS [id number] Unknown [id number] 2.16.8 [id number] Unknown [id number] 2.16.8 [id number] Unknown [id number] 2.16.8 [id number] Social History Date Type Detail Facility Sex Assigned At [facility] Start: 09-02-2022 Tobacco smoking status Light t obacco smoker (finding) [facility] Tobacco smoking status Smoker (finding) [facility] Tobacco smoking status Never [facility] Start: 1950 Sex Assigned At Female F [facility] Functional Status Date Assessment Result Facility 09-02-2022 Functional Status N/A [facility] Evaluation note 05-07-2023 Note Date & [...] understanding and is agreeable to treatment plan. [facility] Other Hospital Discharge instructions 09-02-2022 Note Date [...] include: ?8 oz (237 mL) of milk, jkvplfg-qyvbbkjxdtsm-suozt milk, and calcium-fortifiedfruit juice. Calcium-fortified means that [...] ?Spinach (cooked), rhubarb, beets, sweet potatoes, and [place] chard. ?Peanuts. ?Potato chips, liberian fries, and baked potatoes with skin on. ?Nuts and nut products. ?Chocolate. If you regularly take a diuretic medicine, make sure to eat at least 1 or 2 servings of fruits or vegetables that are high in potassium each day. These include: ?Avocado. ?Banana. ?[place], prune, carrot, or tomato juice. ?Baked potato. [...] magnesium, fish oil, or vitamin B6. Take jodn-hzc-qnikkcd and prescription medicines only as told by [...] Casseroles. Pizza. Lasagna. Frozen meals. Potato chips. Maltese fries. The items listed above may not [...] provider. Document Revised: 11/24/2021 Document Reviewed: 11/24/2021 [employer] Patient Education 2022 [employer]. Follow Up Care 03/04/2021 10:12:25 With:Gregor LUIS, KENNEDY Whaley, URO Address: When: Unknown [facility] Evaluation note 10-07-2021 Note Date & [...] R30.0) Sep, Hematuria, unspecified (ICD-10 - R31.9) [facility] Other Evaluation + Plan note Note Date & Type Note Facility Evaluation + Plan note No data available for this section [facility] Evaluation note Note Date & Type Note Facility Evaluation note No assessment information availa [facility] Work Phone: History general Narrative - [...] Hysterectomy Hospitalization History See past surgical hx [facility] Other Progress note Note Date & Type Note Facility Progress note No data available for this section [facility] Summary Purpose Family History No Family History Records FoundNo Family History Records FoundNo Family History Records FoundNo Family History Records FoundNo Family History Records Found Advance Directives No Advanced Directives Records Found Advance Directive Response Recorded Date/ Time Advance Directives No July 31, 2019 9:58am Chief Complaint and Reason for Visit Chief Complaint i70.91 h81.4 Chief Complaint i70.91 h81.4 r00.2 Additional Source Comments INFORMATION SOURCE (unrecogn ized section and content) DATE CREATED AUTHOR 04/18/2021 [facility] DATE CREATED AUTHOR AUTHOR'S ORGANIZ ATION 09/07/2022 [facility] DATE CREATED AUTHOR AUTHOR'S ORGANIZ ATION 05/07/2023 [facility] DATE CREATED AUTHOR AUTHOR'S ORGANIZ ATION 05/31/2023 [facility] EPIC DATE CREATED AUTHOR AUTHOR'S ORGANIZ ATION 06/20/2023 [facility] REASON FOR VISIT (unrecogniz ed section and content) DYSURIA, SOB, COUGH, CALL CE LL PHONEDYSURIA, SOB, COUGH, CALL CELL PHONEDYSURIA, SOB, COUGH, CALL CELL PHONElow back pain while moving heavy object Patient Care team informatio n (unrecognized section and content) Team Status: Active Member Role Status Dates Mike Genao , Primary Care Provider Active Team Status: Inactive Member Role Status Dates TATIANNA Penaloza Attending Provider Krystal Genao , DO Primary Care Provider Active Team Status: Inactive Member Role Status Dates Mike Genao , Primary Care Provider, Attending Flora jennings Active [...] BE BASED ON THE PRIMARY CLINICAL RECORDS. [facility] [employer] provides no warranty or guarantee of the accuracy or completeness of information in this document.
--- NOTE | 2023-06-21 10:20 | NM_ITS ---
The [address] [address] Patient Name: TORIE ERVIN MRN: [id number] date: 1950 Sex: F Assigned Patient Location: [place] Current Patient Location: [place] Accession/Order Number: [id number] Exam Date: 06/21/2023 10:30 Report Date: 06/21/2023 12:42 At the request of: FRANCIS HOLDEN Procedure: NM renal flow w/wo pharm int EXAMINATION: NM renal flow w/wo pharm int HISTORY: RENAL CYST COMPARISON: 08/26/2022 TECHNIQUE: After IV administration of Tc-99m MAG-3, sequential renal flow images were acquired followed by sequential static images. Quantitative analysis was performed of both kidneys. Subsequently, the patient was given Lasix IV for determination of renal washout. FINDINGS: ARTERIAL PERFUSION: Normal and symmetric. TIME TO PEAK (LEFT): 3.25 minutes (Normal-less than five minutes). TIME TO PEAK (RIGHT): 18.5 minutes (Normal-less than five minutes). PERCENT UPTAKE: Left 62 % : Right 38 % T 1/2 POST-LASIX (LEFT): 24.5 minutes. T 1/2 POST-LASIX (RIGHT): Not reached minutes. (Normal < 10 min, equivocal 10-20 min, abnormal > 20 min.). BLADDER: Normal. OTHER: Moderate to marked right hydronephrosis NM/CA renal flow w/wo pharm int IMPRESSION: Moderate to marked right hydronephrosis with abnormally delayed post-Lasix washout. Obstructive uropathy should be considered Electronically authenticated by: CATINA GAYLE Date: 06/21/2023 12:42
[2023-06-21] MEDS: FUROSEMIDE 40 MG/4 ML VIAL IVP (11:00)
== END 2023-06-21 10:08 | disposition home or self-care (01) ==
LOC: NM 10:08
PROVIDERS: Visit Provider Physician Assistant
DX: N28.1 Cyst of kidney, acquired (principal)
CPT/HCPCS: 78709; A9562

== ENCOUNTER 2023-09-21 11:10 | Outpatient (OUT) | payer MEDICARE, SELFPAY ==
--- NOTE | 2023-09-21 11:20 | NM_ITS ---
The [address] [address] Patient Name: TORIE ERVIN MRN: [id number] date: 1950 Sex: F Assigned Patient Location: [place] Current Patient Location: [place] Accession/Order Number: [id number] Exam Date: 09/21/2023 11:20 Report Date: 09/21/2023 14:04 At the request of: MANPREET HERCULES Procedure: NM renal flow w/wo pharm int EXAMINATION: NM renal flow w/wo pharm int HISTORY: CONGENITAL OCCLUSION OF URETEROPELVIC JUNCTION COMPARISON: 06/21/2023 TECHNIQUE: After IV administration of 10 mCi Tc-99m MAG-3, sequential renal flow images were acquired followed by sequential static images. Quantitative analysis was performed of both kidneys. Subsequently, the patient was given 40 mg Lasix IV for determination of renal washout. FINDINGS: ARTERIAL PERFUSION: Normal and symmetric. TIME TO PEAK (LEFT): 3.3 minutes (Normal-less than five minutes). TIME TO PEAK (RIGHT): 19.8 minutes (Normal-less than five minutes). PERCENT UPTAKE: Left 64 % : Right 36 % T 1/2 POST-LASIX (LEFT): 15 minutes. T 1/2 POST-LASIX (RIGHT): 16 minutes. (Normal < 10 min, equivocal 10-20 min, abnormal > 20 min.). BLADDER: Normal. OTHER: Right hydronephrosis NM/DC renal flow w/wo pharm int IMPRESSION: Delayed time to peak in the right kidney Moderate right hydronephrosis with equivocal post Lasix washout of the right kidney suggesting an element of obstructive uropathy Electronically authenticated by: CATINA GAYLE Date: 09/21/2023 14:04
--- OUTSIDE RECORDS SUMMARY | 2023-09-21 11:24 | XMS_ITS ---
Patient Summarization (C-CDA 2.1 CCD) Created on: September 21, 2023 CHRISTAL ERVIN : 1950 Sex: Female Author Organization Sample organization Care Team Providers Care Client Coordinator Name Role Phone Heather Nunez Unavailable MIKE GENAO Primary Care Physician [phone] MISSh[address], DR ATWOOD Primary Care Unavailable ORIANA DELGADO Attending Unavailable ORIANA DELGADO Consulting Unavailable ORIANA DELGADO Admitting Unavailable FRANCIS HOLDEN Admitting Unavailable MISShalom, DR ATWOOD Primary Care Unavailable FRANCIS HOLDEN Attending Unavailable FRANCIS HOLDEN Consulting Unavailable TATIANNA Amezquita Attending Provider DO Mike Genao Primary Care Provider [phone] DO Mike Genao Attending Provider Milla Skinner Unavailable Mike Genao Admitting Unavailable Mike Genao Attending Unavailable Mike Genao Primary Care Unavailable Ric Kerr Admitting Unavailab Ric Hernandez Attending Unavailab Mike Fajardo Primary Care Unavailable Mike Genao Admitting Unavailable Mike Genao Attending Unavailable Mike Genao Referring Unavailable Mike Genao Primary Care Unavailable Ritchie Amezquita Admitting Unavail able Ritchie Amezquita Attending Unavail able Mike Genao Primary Care Unavailable MIKE GENAO Attending Unavailable MIKE GENAO Referring Unavailable QASIM CHAUDHRY Attending Unavailable MIKE GENAO Referring Unavailable MIKE GENAO Referring Unavailable RITCHIE AMEZQUITA Attending Unava ilable QASIM CHAUDHRY Referring Unavailable MIKE GENAO Attending Unavailable MIKE GENAO Referring Unavailable Tonya Bundy Attending Unavailable Lue, Tonya M. Attending Unavailable Allergies Allergy Classification Reported Allergen(s) Allergy Type Date of Onset Reaction(s) Facility (7 sources) Codeine; Translations: [codeine] Drug Allergy stomach upset, unknown [facility] (1 source) Codeine Drug Allergy 0 [facility] Repository (1 source) Codeine Drug Allergy [facility] Repository Encounters Encounter Date Encounter Type Care Provider Facility Start: 09-03-2023 End: 09-03-2023 ambulatory Tonya Bundy Facility: [place] Start: 09-03-2023 End: 09-03-2023 Patient encounter procedure Tonya Bundy [facility] Start: 08-24-2023 End: 08-24-2023 ambulatory MIKE GENAO Not Available Start: 08-19-2023 ambulatory Ric Moreland acility:[facility] Start: 06-01-2023 ambulatory Mike Vaschak Facility :[facility] Start: 05-27-2023 End: 05-28-2023 ambulatory YUJESSICA ISIDORO Not Available Start: 05-07-2023 End: 05-07-2023 ambulatory Milla Skinner Other [facility] Other Start: 05-07-2023 Office outpatient visit 25 minutes Milla Skinner [facility] Start: 04-19-2023 End: 04-19-2023 ambulatory MIKE J HEATHERK Not Available Start: 04-08-2023 End: 04-08-2023 ambulatory Mike Gomezchak Facility:[facility] Start: 04-08-2023 End: 04-08-2023 ambulatory DO Mike Gomezchak Work Phone: [facility] Work Phone: Start: 04-08-2023 End: 04-08-2023 Patient encounter procedure DO Mike Christiansonk Work Phone: [facility] Work Phone: Start: 03-08-2023 End: 03-08-2023 ambulatory Ritchie Amezquita Facility:[facility] Start: 03-08-2023 End: 03-08-2023 ambulatory DO Mike Genao Work Phone: [facility] Work Phone: Start: 03-08-2023 End: 03-08-2023 Patient encounter procedure DO Mike Genao Work Phone: [facility] Work Phone: Start: 02-23-2023 End: 02-23-2023 ambulatory MIKE GENAO Not Available Start: 09-02-2022 End: 09-02-2022 Patient encounter procedure Tonya Bundy [facility] Start: 08-26-2022 ambulatory FRANCIS HOLDEN Facility :[facility] Start: 12-07-2021 End: 12-07-[address] DOCTOR GOMES Facility:[facility] Start: 10-07-2021 End: 10-07-2021 ambulatory Heather Nunez Other [facility] Other Start: 10-07-2021 Office outpatient visit 15 minutes Heather Nunez [facility] Immunizations Immunization Date Immunization Notes Care Provider Keith saba 02-25-2022 influenza virus vacc ine, unspecified formulation Tonya Bundy [facility] 02-28-2021 SARS-CoV-2 (COVID-19 ) Ad26 vaccine, recombinant Tonya Bundy [facility] 02-13-2021 influenza virus vacc ine, unspecified formulation Tonya Bundy [facility] 07-06-2020 SARS-CoV-2 (COVID-19 ) mRNA-1273 vaccine Tonya Lue [facility] 06-27-2020 SARS-CoV-2 (COVID-19 ) Ad26 vaccine, recombinant Tonya Lue [facility] 06-08-2020 SARS-CoV-2 (COVID-19 ) mRNA-1273 vaccine Tonya Lue [facility] 05-27-2020 SARS-CoV-2 (COVID-19 ) Ad26 vaccine, recombinant Tonya Lue [facility] 02-01-2020 influenza virus vacc ine, unspecified formulation Tonya Lue [facility] 12-27-2018 influenza virus vacc ine, unspecified formulation Tonya Lue [facility] 11-08-2017 pneumococcal polysaccharide vaccine, 23 valent Tonya Lue [facility] 11-25-2016 influenza virus vacc ine, unspecified formulation Tonya Lue [facility] 01-20-2016 influenza virus vacc ine, unspecified formulation Tonya Lue [facility] 02-08-2015 tetanus toxoid, redu herbert diphtheria toxoid, and acellular pertussis vaccine, adsorbed Tonya Lue [facility] Medications Current Medications Medication Drug Class(es) Dates Sig (Normalized) Sig (Original) ALPRAZolam 0.25 mg oral tablet (6 sources) Benzodiazepine Start: 10-02-2021 take 1 tablet [...] tablet Orally Once a day Active hydrOXYzine (8 sources) Antihistamine Start: 020 hydrOXYzine pamoate Oral, QID, Refills(s) 0 Start Date: 08/15/19 Status: Ordered Start: 03-01-2019 hydrOXYzine Re fills(s) 0 Start Date: 03/01/19 Status: Ordered take 1 capsule by [facility] every eight hours hydrOXYzine Pamoate 50 MG [...] Apr, Active mirtazapine 15 mg oral tablet (7 sources) Start: 09-02-2022 mirtazapine 15 mg Tab Refills(s) 0 Start Date: 09/03/23 Status: Ordered tiZANidine 4 mg oral tablet (1 source) Central alpha-2 Adrenergic Agonist Start: 05-07-2023 tiZANidine HCl 4 MG 1 tablet as needed Orally at bedtime for 7 days Apr, Active Vitamin B Complex oral capsule (2 sources) Start: 03-01-2019 take 1 capsule by mouth [...] Orally Once a day Active Vitamin D (2 sources) Start: 03-01-2019 Vitamin D Oral, Refills(s) 0 [...] Corticosteroid Start: 05-07-2023 Kenalog-40 Apr, 40 mg Payers Date Payer Category Payer Self-pay [id number] 1959 Medicare [id number] 2.1 [id number] 1959 Unknown [id number] 2.1 [id number] 1950 Unknown [id number] 2.16.84 [id number] 1950 Unknown [id number] 2.16.84 [id number] 1950 Unknown [id number] 2.16.84 [id number] 1950 Unknown [id number] 2.16.84 [id number] 1950 Unknown [id number] 2.16.84 0.1.949791.3.579.2.1259 1950 Unknown [id number] 2.16.84 0.1.614085.3.579.2.1259 1950 Unknown [id number] 2.16.840 .[id number] 1950 Unknown [id number] 2.16.8 [id number] 1950 Unknown [id number] 2.16.8 [id number] Unknown Kristin BC/BS [id number] Unknown [id number] 2.16.8 [id number] Unknown [id number] 2.16.8 [id number] Unknown [id number] 2.16.8 [id number] Unknown [id number] 2.16.8 [id number] Plan of Treatment Date Care Activity Detail Author Start: 09-08-2023 ambulatory Ambulatory Facility:[facility] Problems Active Problems Problem Classification Problem Date Documented Date Episodic/Chronic Anxiety disorders (11 sources) Generalized anxiety disorder; Translations: [Generalized anxiety disorder] Onset: 12-09-2021 03-01-2019 Chronic Asthma (2 sources) Asthma 03-01-2019 Chronic Calculus of urinary tract (4 sources) Kidney stone; Translations: [Calculus of kidney] Onset: 09-01-2022 Episodic Chronic obstructive pulmonary disease and bronchiectasis (4 sources) Chronic obstructive lung disease; Translations: [Chronic obstructive pulmonary disease, unspecified] Chronic Disorders of lipid metabolism (2 sources) Hyperlipidemia 03-01-2019 Chronic Genitourinary congenital anomalies (7 sources) Congenital pelviureteric junction obstruction; 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] Onset: 09-01-2022 Chronic Genitourinary symptoms and ill-defined conditions (14 sources) Dysuria; Translations: [Hematuria, unspecified] Onset: 10-07-2021 Resolved: 10-07-2021 Episodic Mood disorders (4 sources) Recurrent major depressive episodes, moderate ; Translations: [Major depressive disorder, recurrent, moderate] Chronic Nutritional deficiencies (2 sources) Vitamin D deficiency 03-01-2019 Chronic Nutritional deficiencies (2 sources) Vitamin B deficiency 03-01-2019 Episodic Osteoarthritis (2 sources) Arthritis 03-01-2019 Chronic Osteoporosis (1 source) Age-related osteoporosis without current pathological fracture; Translations: [Age-related osteoporosis without current pathological fracture] Onset: 06-01-2023 Chronic Other diseases of kidney and ureters (2 sources) Cyst of kidney 03-01-2019 Episodic Other diseases of kidney and ureters (2 sources) Hydronephrosis 09-01-2022 Episodic Other diseases of kidney and ureters (2 sources) Obstruction of pelviureteric junction 03-01-2019 Episodic Other diseases of kidney and ureters (2 sources) Stricture of ureter 08-15-2019 Episodic Other inflammatory condition of skin (2 sources) Psoriasis 03-01-2019 Chronic Other screening for suspected conditions (not mental disorders or infectious disease) (4 sources) Radiology result abnormal; Translations: [Abnormal findings on diagnostic imaging of other specified body structures] Episodic Peripheral and visceral atherosclerosis (3 sources) Arteriosclerotic vascular disease; Translations: [Generalized atherosclerosis] Onset: 03-08-2023 03-01-2019 Chronic Residual codes; unclassified (4 sources) Tobacco dependence syndrome; Translations: [Tobacco use] Episodic Sprains and strains (1 source) Strain of muscle, fascia and tendon of lower back, initial encounter Episodic Substance-related disorders (4 sources) Smoker; Translations: [Nicotine dependence, cigarettes, uncomplicated] Onset: 12-09-2021 08-15-2019 Chronic Past or Other Problems Problem Classification Problem Date Documented Da te Episodic/Chronic Cardiac dysrhythmias (1 source) Palpitations; Translations: [Palpitations] Onset: 04-08-2023 Episodic Conditions associated with dizziness or vertigo (3 sources) Dizziness and giddiness; Translations: [DIZZINESS AND GIDDINESS] Onset: 12-07-2021 Episodic Fever of unknown origin (3 sources) Fever, unspecified Onset: 10-07-2021 Resolved: 10-07-2021 Episodic Other aftercare (1 source) Other terminal make up operator (current) drug therapy; Translations: [OTH LABORATORY MACHINIST CURRENT DRUG THERAPY] Onset: 12-09-2021 Episodic Urinary tract infections (3 sources) Urinary tract infection, site not specified Onset: 10-07-2021 Resolved: 10-07-2021 Episodic Procedures Date Procedure Procedure Detail Performing Clinician Start: 10-07-2021 Piperacillin/tazobactam Heather Mayra Other Start: 05-23-2013 Cysto, UD, B/L RG Tonya Bundy Bladder Sling 1 Tonya Bundy Comment on above: Dr. Graham Cholecystectomy Tonya Bundy Hysterectomy Tonya Bundy Knee region structur e (body structure) Tonya Bundy Comment on above: B/L Lumbar (qualifier value) Sulma Bundy Results Test Name Value Interpretation Reference Range Facility Ambulatory Visit Summaryon 0 09-03-2023 Ambulatory Visit Summary CHRISTAL ERVIN :1950 Visit Date:09/03/2023 Ambulatory Visit Instructions Your Diagnosis Congenital occlusion of ureteropelvic junction (UPJ) Nephrolithiasis History of UTI Smoker Tests Performed NM Kidney Imaging w/ Flow w/o Pharm -- Results Pending -- Please visit your patient portal for your results or contact your primary care physician. Your Care Team Attending Physician - Tonya Bundy MD Primary Care Physician - MIKE GENAO DO This Is Your Medications List Contact prescribing physician if questions or concerns alprazolam (Xanax) ergocalciferol (Vitamin D) hydrOXYzine hydrOXYzine (hydrOXYzine pamoate) mirtazapine (mirtazapine 15 mg Tab) mirtazapine (mirtazapine 15 mg Tab) multivitamin (Vitamin B Complex oral capsule) Procedures Performed Cysto, UD, B/L RG (05/23/2013), Bladder Sling, Cholecystectomy, Hysterectomy, Knee, Lumbar. Discharge Vitals Temperature (Temporal Artery) 35.8 ?C Heart Rate (Peripheral) 78 Blood Pressure 128/84 Height 162 cm Height 64 in Weight 75.8 kg Weight 166.76 lb BMI 28.88 What to do next You Need to Schedule the Following Appointments Follow Up with Tonya Bundy MD, URL, URO When: Where: Medications What How [...] Contact prescribing physician if questions or concerns Allergies codeine (unknown) Problems Ongoing - Any problem that you are currently receiving treatment for. Anxiety Arthritis Asthma ASVD (arteriosclerotic vascular disease) Congenital occlusion of ureteropelvic junction (UPJ) Frequency of urination History of UTI Hydronephrosis Hydronephrosis with ureteropelvic junction obstruction Hyperlipidemia Nephrolithiasis Nocturia Psoriasis Renal cyst Smoker Ureteral stricture Ureteropelvic junction (UPJ) obstruction Vitamin B deficiency Vitamin D deficiency Patient Survey You may receive a survey via text or e-mail asking about your office visit. Please share your experience with us by completing your survey. We appreciate your feedback and thank you for choosing us for your care. Education Materials Steps to Quit Smoking Smoking tobacco is the leading cause of preventable . It can affect almost every organ in the body. Smoking puts you and those around you at risk for developing many serious chronic diseases. Quitting smoking can be very challenging. Do not get discouraged if you are not successful the first time. Some people need to make many attempts to quit before they achieve long-term success. Do your best to stick to your quit plan, and talk with your health care provider if you have any questions or concerns. How do I get ready to quit? When you decide to quit smoking, create a plan to help you succeed. Before you quit: ? Pick a date to quit. Set a date within the next 2 weeks to give you time to prepare. ? Write down the reasons why you are quitting. Keep this list in places where you will see it often. ? Tell your family, friends, and co-workers that you are quitting. Support from people you are close to can make quitting easier. ? Talk with your health care provider about your options for quitting smoking. ? Find out what treatment options are covered by your health insurance. ? Identify people, places, things, and activities that make you want to smoke (triggers). Avoid them. What first steps can I take to quit smoking? ? Throw away all cigarettes at home, at work, and in your car. ? Throw away smoking accessories, such as ashtrays and lighters. ? Clean your car. Make sure to empty the ashtray. ? Clean your home, including curtains and carpets. What strategies can I use to quit smoking? Talk with your health care provider about combining strategies, such as taking medicines while you are also receiving in-person counseling. Using these two strategies together makes you more likely to succeed in quitting than if you used either strategy on its own. If you are or , talk with your health care provider about finding counseling or other support strategies to quit smoking. Do not take medicine to help you quit smoking unless your health care provider tells you to. Quit right away ? (more content not included)... Normal [facility] Patient Educationon 09-03-19 Patient Education Pulmonary Medicine Steps to Quit Smoking Smoking tobacco is the leading cause of preventable . It can affect almost every organ in the body. Smoking puts you and those around you at risk for developing many serious chronic diseases. Quitting smoking can be very challenging. Do not get discouraged if you are not successful the first time. Some people need to make many attempts to quit before they achieve long-term success. Do your best to stick to your quit plan, and talk with your health care provider if you have any questions or concerns. How do I get ready to quit? When you decide to quit smoking, create a plan to help you succeed. Before you quit: ? Pick a date to quit. Set a date within the next 2 weeks to give you time to prepare. ? Write down the reasons why you are quitting. Keep this list in places where you will see it often. ? Tell your family, friends, and co-workers that you are quitting. Support from people you are close to can make quitting easier. ? Talk with your health care provider about your options for quitting smoking. ? Find out what treatment options are covered by your health insurance. ? Identify people, places, things, and activities that make you want to smoke (triggers). Avoid them. What first steps can I take to quit smoking? ? Throw away all cigarettes at home, at work, and in your car. ? Throw away smoking accessories, such as ashtrays and lighters. ? Clean your car. Make sure to empty the ashtray. ? Clean your home, including curtains and carpets. What strategies can I use to quit smoking? Talk with your health care provider about combining strategies, such as taking medicines while you are also receiving in-person counseling. Using these two strategies together makes you more likely to succeed in quitting than if you used either strategy on its own. If you are or , talk with your health care provider about finding counseling or other support strategies to quit smoking. Do not take medicine to help you quit smoking unless your health care provider tells you to. Quit right away ? Quit smoking completely, instead of gradually reducing how much you smoke over a period of time. Stopping smoking right away may be more successful than gradually quitting. ? Attend in-person counseling to help you build problem-solving skills. You are more likely to succeed in quitting if you attend counseling sessions regularly. Even short sessions of 10 minutes can be effective. Take medicine You may take medicines to help you quit smoking. Some medicines require a prescription. You can also purchase [id number] medicines. Medicines may have nicotine in them to replace the nicotine in cigarettes. Medicines may: ? Help to stop cravings. ? Help to relieve withdrawal symptoms. Your health care provider may recommend: ? Nicotine patches, gum, or lozenges. ? Nicotine inhalers or sprays. ? Non-nicotine medicine that you take by mouth. Find resources Find resources and support systems that can help you quit smoking and remain smoke-free after you quit. These resources are most helpful when you use them often. They include: ? Online chats with a counselor. ? Telephone quitlines. ? Printed self-help materials. ? Support groups or group counseling. ? Text messaging programs. ? Mobile phone apps or applications. Use apps that can help you stick to your quit plan by providing reminders, tips, and encouragement. Examples of free services include Quit Guide from the CDC and smokefree.gov What can I do to make it easier to quit? ? Reach out to your family and friends for support and encouragement. Call telephone quitlines, such as 5-026-FJEX-NOW, reach out to support groups, or work with a counselor for support. ? Ask people who smoke to avoid smoking around you. ? Avoid places that trigger you to smoke, such as bars, parties, or smoke-break areas at work. ? Spend time with people who do not smoke. ? Lessen the stress in your life. Stress can be a smoking trigger for some people. To lessen stress, try: ? Exercising regularly. ? Doing deep-breathing exercises. ? Doing yoga. ? Meditating. What benefits will I see if I quit smoking? Over time, you should start to see positive results, such as: ? Improved sense of smell and taste. ? Decreased coughing and sore throat. ? Slower heart rate. ? Lower blood pressure. ? Clearer and healthier skin. ? The ability to breathe more easily. ? Fewer sick days. Summary ? Quitting smoking can be very challenging. Do not get discouraged if you are not successful the first time. Some people need to make many attempts to quit before they achieve long-term success. ? When you decide to quit smoking, create a plan to help you succeed. ? Quit smoking right away, not slowly over a period of time. ? Find resources and support systems that can help you quit smoki (more content not included)... Normal [facility] Urology Office/Clinic Noteon 09-03-2023 Urology Office/Clinic Note Chief Complaint F/U with Renal scan HPI Staff Pt here today for a F/U with Renal scan @ [facility] on 06/21/23 Previous DX: frequency of urination, history of UTI, hydronephrosis, nephrolithiasis, nocturia, renal cyst, ureteral stricture, UPJ obstruction. B&BSQ 11 Dysuria: denies Incomplete bladder emptying: denies Hematuria: denies visible blood Frequency: every 1-2 hours Urgency: denies Nocturia: once nightly Stream: denies hesitation, normal stream Leaking: denies Post void dripping: denies Wearing pads/ Depends: pad wore when she is out of the house Urge incontinence: denies Stress incontinence: denies Incontinence without Sensory Awareness: _ Abdominal pain: denies Flank pain: Right side pain Sexual complaints: denies History of Present Illness Tests reviewed: reviewed UA, renal scan I have reviewed the previous health record information and history for this patient from Dr. Bundy. I have reviewed and verified the staff HPI to be accurate for this encounter. There have been no associated fever, chills, flank pain, or blood in the urine. Denies any urinary infections since last encounter. Review of Systems PHQ Score Initial Depression Screen Score: 0 SCORE ROS - Provider Constitutional: denies weight loss, denies hot flashes. Eyes: denies eye problems. Gastrointestinal: denies nausea, denies vomiting. Cardiovascular: denies chest pain or angina. Integumentary: no dryness Musculoskeletal: denies musculoskeletal symptoms. ENMT: denies otolaryngeal symptoms. Respiratory: no shortness of breath. Heme/Lymph: denies easy bleeding tendency, denies easy bruising tendency. Psychiatric: no confusion, no anxiety. Genitourinary: See HPI. Physical Exam Vitals & Measurements T: 35.8 ?C(Temporal Artery) HR: 78(Peripheral) BP: 128/84 HT: 64 in HT: 162 cm WT: 75.8 kg WT: 166.76 lb BMI: 28.88 General Appearance: alert , no acute distress, well nourished, well developed female. Genitourinary: bladder nonpalpable, no flank pain. Assessment/Plan 73 yo female prior DLS pt with history of chronic R UPJ obstruction BBS 11. 1. Congenital occlusion of ureteropelvic junction (UPJ) (Q62.11: Congenital occlusion of ureteropelvic junction) Hydronephrosis with ureteropelvic junction obstruction. Followed by Dr. Dangelo since 2016. ANNIE 10/15/20 - Chronic marked right hydronephrosis. ANNIE 08/26/22 - Marked hydronephrosis of the right kidney, a similar finding was on the previous exam, some renal cortical thinning. NMR scan 06/21/23 - 62% left, 38% right. Moderate to marked R hydronephrosis w/abnormally delayed post-lasix washout. Obstructive uropathy should be considered. R flank pain due to pulled muscles. Reviewed renal scan with pt - appears R kidney obstructed, still with decent function. Educated pt on risks of chronic obstruction, total loss of R kidney fxn. Discussed options including cont to monitor for possible loss of kidney fxn vs definitive robotic pyeloplasty vs stent placement. Risks and benefits of options discussed. Pt voices understanding that kidney fxn may worsen while cont to monitor. Would need CT scan w con to eval whether obstruction caused by exterior vessel vs scar tissue buildup inside ureter. Explained that this has been a chronic problem, not acute. S/p hysterectomy and cholecystectomy, higher risk of complications, in addition to smoker and unable to lie flat. High surgical risk. 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 She will repeat the scan on her own time, given her busy schedule, and f/u pending scan results. Follow up pending below or sooner if needed. Pt understands and agrees with plan. -Repeat NM renal scan w flow w pharm. If stable, ANNIE in 6 mos. If not, pt understands she will have to have an appt to go over results and discuss stent vs definitive repair given comorbidities 2. Nephrolithiasis (N20.0: Calculus of kidney) ANNIE 10/15/20 - Non obstruction 4 mm stone in the right kidney. Asx, cont monitoring 3. History of UTI (Z87.440: Personal history of urinary (tract) infections) Ucx: 10/07/21 - E. coli, treated with Cipro UA today negative for blood and infection. No UTIs since prior encounter. -Discussed importance of preventing UTIs and getting them treated promptly to prevent pyelonephritis in obstructed kidney. Would need urgent stent 4. Smoker (F17.200: Nicotine dependence, unspecified, uncomplicated) Pt shares she cannot lay flat to sleep because she cannot breath. Elevated periop complications. Recommended smoking cessation. I spent 40 minutes today with the patient: reviewing tests in preparation to see and discuss them with the patient, documenting clinical information in the electronic health records, and care coordination. Time was spent performing a medical exam and evaluation, counseling and educating the patient, and ordering tests in caring for the patient. Follow-up With Wh (more content not included)... Normal [facility] Comment on above: Result Comment: Elec tronically Signed By: Tonya Bundy MD\.br\Date and Time Signed: 09/03/23 14:51 EDT\.br\Electronically Co-Signed By: Jackie Zarate\.br\Date and Time Co-Signed: 09/03/23 14:43 EDT\.br\Electronically Co-Signed By: Jackie Zarate.br\Date and Time Co-Signed: 09/03/23 14:46 EDT RAD - Nuclear Medicine Repor ton 06-22-2023 RAD - Nuclear Medicine Report [id number] Normal Alber [facility] XR LUMBAR SPINE 2-3 VIEWSon 05-27-2023 XR LUMBAR SPINE 2-3 VIEWS FINDINGS: Lumbar vertebral bodies normal in height. 4 mm anterolisthesis, L4 on L5. Diffuse disc space narrowing L5-S1. 3.6 mm retrolisthesis L5 on S1. No fracture. No bone lesion. IMPRESSION: Grade 1 L4 spondylolisthesis. L5 retrolisthesis. Moderate degenerative change lower lumbar spine. ELECTRONICALLY SIGNED BY: Hernandez Nur MD Normal Not Available [facility] echo transthoracicon [facility] echo transthoracic [place] [address] Echocardiogram Signed Patient: Christal Ervin MR#: [id number] : 1950 Acct:[id number] Age/Sex: 72 / F ADM Date: 04/08/23 Loc: Room: Type: [facility] Attending Dr: Mike Genao DO Ordering Provider: Mike Genao DO Date of Service: 04/08/23/ [facility] echo transthoracic: PALPITATIONS Copies to: MD Mike [...] Signed By: Martin Mcnulty MD 04/08/23 1646 Normal [facility] CA holter monitor recordingo n 03-11-2023 [place] [address] Holter Monitor Report Signed Patient: Christal Ervin MR#: [id number] : 1950 Acct:[id number] Age/Sex: 72 / F ADM Date: 03/08/23 Loc: Room: Type: [facility] Attending Dr: Ritchiethao CAMPUZANO Copies to: Ritchie Hauser MD Ordering Provider: Ritchie CAMPUZANO Date of Service: 03/08/23 CA/CA holter monitor recording: i70.91, h81.4 ORDERING: TATIANNA [...] RADHA 03/11/232221 Dictated By: Telly Hauser MD 03/11/231725 Signed By: 03/13/23 1239 Normal [facility] Patient Letter FTon 2022 Patient Letter [facility] February 09, [address] [address] : 1950 Sent via certified and regular [...] Sincerely, Tonya Bundy M.D. [facility] [address] [place] [address] Normal [facility] US KIDNEYSon 08-26-2022 US KIDNEYS EXAM: US [...] CATINA KHANNA Date: 2022-08-26 10:33 Normal [facility] CBC AUTO DIFFon 12-07-2021 BASO # 0.0 103/ul Normal 0.0-0.1 [facility] Comment on above: Performed By: #### C BC #### [facility] [address] [address] [address] Senait Pisano Basophils/100 WBC (Bld) 1.0 % Normal 0.2-2.0 [facility] Comment on above: Performed By: #### C BC #### [facility] [address] [address] [address] Senait Pisano EO # 0.1 103/ul Normal 0.0-0.7 [facility] Comment on above: Performed By: #### C BC #### [facility] [address] [place] [address] Dr. Senait Pisano Eosinophils/100 WBC (Bld) 2.0 % Normal 0.9-7.0 [facility] Comment on above: Performed By: #### C BC #### [facility] [address] [place] [address] Dr. Senait Pisano Erythrocyte distribution width (RBC) [Ratio] 15.7 % Critically high 11.0-15.0 [facility] Comment on above: Performed By: #### C BC #### [facility] [address] [place] [address] Dr. Senait Pisano Hematocrit (Bld) [Volume fraction] 38.8 % Normal 36.0-48.0 [facility] Comment on above: Performed By: #### C BC #### [facility] [address] [place] [address] Dr. Senait Pisano Hemoglobin (Bld) [Mass/Vol] 12.0 g/dL Normal 12.0-16.0 [facility] Comment on above: Performed By: #### C BC #### [facility] [address] [place] [address] Dr. Senait Pisano IG # 0.01 10e3/ul Normal 0.00-0.03 [facility] Comment on above: Performed By: #### C BC #### [facility] [address] [place] [address] Dr. Senait Pisano IG % 0.2 % Normal 0.0-0.5 [facility] Comment on above: Performed By: #### C BC #### [facility] [address] [place] [address] Dr. Senait Pisano LYMPH # 0.9 103/ul Critically low 1.2-3.8 [facility] Comment on above: Performed By: #### C BC #### [facility] [address] [place] [address] Dr. Senait Pisano Lymphocytes/100 WBC (Bld) 20.8 % Normal 20.5-60.0 [facility] Comment on above: Performed By: #### C BC #### [facility] [address] [place] [address] Dr. Senait Pisano MANUAL DIFF REQ NO Normal [facility] Comment on above: Performed By: #### C BC #### [facility] [address] [place] [address] Dr. Senait Pisano MCH (RBC) [Entitic mass] 23.6 pg Critically low 26.7-34.0 [facility] Comment on above: Performed By: #### C BC #### [facility] [address] [place] [address] Dr. Senait Pisano MCHC (RBC) [Mass/Vol] 30.9 g/dL Normal 29.9-35.2 [facility] Comment on above: Performed By: #### C BC #### [facility] [address] [place] [address] Dr. Senait Pisano MCV (RBC) [Entitic vol] 76.4 fL Critically low 81.0-99.0 [facility] Comment on above: Performed By: #### C BC #### [facility] [address] [place] [address] Dr. Senait Pisano MONO # 0.5 103/ul Normal 0.3-0.8 [facility] Comment on above: Performed By: #### C BC #### [facility] [address] [place] [address] Dr. Senait Pisano Monocytes/100 WBC (Bld) 13.2 % Critically high 1.7-12.0 [facility] Comment on above: Performed By: #### C BC #### [facility] [address] [place] [address] Dr. Senait Pisano NEUT # 2.6 103/ul Normal 1.4-6.5 [facility] Comment on above: Performed By: #### C BC #### [facility] [address] [place] [address] Dr. Senait Pisano Neutrophils/100 WBC (Bld) 62.8 % Normal 43.0-75.0 [facility] Comment on above: Performed By: #### C BC #### [facility] [address] [place] [address] Dr. Senait Pisano Platelet mean volume (Bld) [Entitic vol] 10.0 fL Normal 9.5-13.5 [facility] Comment on above: Performed By: #### C BC #### [facility] [address] [place] [address] Dr. Senait Pisano PLT 177 103/ul Normal 150-450 [facility] Comment on above: Performed By: #### C BC #### [facility] [address] [place] [address] Dr. Senait Pisano RBC 5.08 106/ul Normal 4.20-5.40 [facility] Comment on above: Performed By: #### C BC #### [facility] [address] [place] [address] Dr. Senait Pisano WBC 4.1 103/ul Normal 4.0-11.0 [facility] Comment on above: Performed By: #### C BC #### [facility] [address] [place] [address] Dr. Senait Pisano PROF CHEM 8 (BAS METB)on Anion gap [Moles/Vol] 8.3 mmol/L Normal [facility] Comment on above: Performed By: #### B MP #### [facility] [address] [place] [address] Dr. Senait Pisano Calcium [Mass/Vol] 8.0 mg/dL Critically low 8.5-10.1 [facility] Comment on above: Performed By: #### B MP #### [facility] [address] [place] [address] Dr. Senait Pisano Chloride [Moles/Vol] 105 mmol/L Normal 98-107 [facility] Comment on above: Performed By: #### B MP #### [facility] [address] [place] [address] Dr. Senait Pisano CO2 [Moles/Vol] 28.6 mmol/L Normal 21.0-32.0 [facility] Comment on above: Performed By: #### B MP #### [facility] [address] [address] [address] Senait Pisano Creatinine [Mass/Vol] 0.68 mg/dL Normal 0.55-1.02 [facility] Comment on above: Performed By: #### B MP #### [facility] [address] [address] [address] Senait Pisano EGFR-AF MONTENEGRIN >60 Normal >=60 [facility] Comment on above: Performed By: #### B MP #### [facility] [address] [address] [address] Senait Pisano EGFR-NON AF MONTENEGRIN >60 Normal >=60 [facility] Comment on above: Performed By: #### B MP #### [facility] [address] [address] [address] Senait Pisano Glucose [Mass/Vol] 192 mg/dL Critically high 74-106 [facility] Comment on above: Performed By: #### B MP #### [facility] [address] [address] [address] Senait Pisano Potassium [Moles/Vol] 3.9 mmol/L Normal 3.5-5.1 [facility] Comment on above: Performed By: #### B MP #### [facility] [address] [place] [address] Dr. Senait Pisano Sodium [Moles/Vol] 138 mmol/L Normal 136-145 [facility] Comment on above: Performed By: #### B MP #### [facility] [address] [address] [address] Senait Pisano Urea nitrogen [Mass/Vol] 9.0 mg/dL Normal 7.0-18.0 [facility] Comment on above: Performed By: #### B MP #### [facility] [address] [place] [address] Dr. Senait Pisano Urea nitrogen/Creatinine [Mass ratio] 13.2 mg/mg Normal [facility] Comment on above: Performed By: #### B MP #### [facility] [address] [place] [address] Dr. Senait Pisano Quick Fluon 10-07-2021 FLUAV Ab CF (S) [Titer] Negative [facility] Other FLUBV Ab CF (S) [Titer] Negative [facility] Other Urinalysis - AUTOMATEDon Appearance (U) CLOUDY [employer] Other Bilirubin Ql (U) Negative SYSTRAN ast [employer] Other Color (U) YELLOW [facility] Other Glucose Ql (U) Negative [employer] Other Hemoglobin Ql (U) MODERATE [employer] Other Ketones Ql (U) Negative [employer] Other Leukocyte esterase Test strip Ql (U) LARGE [employer] Other Nitrite Ql (U) Positive [employer] Other pH (U) 5.5 [pH] [employer] Other Protein Ql (U) 30 [employer] Other Specific gravity (U) [Rel density] <1.005 [employer] Other Urobilinogen (U) [Mass/Vol] 0.2 mg/dL [facility] Other Urinalysis - AUTOMATED [employer] Other Urine Cultureon 10-07-2021 Urine Culture >100,000 [facility] Other Urine Culture <16 Susceptible [employer] Other Urine Culture >16 Resistant [employer] Other Urine Culture <4 Susceptible [employer] Other Urine Culture 4 Susceptible [employer] Other Urine Culture <2 Susceptible [employer] Other Urine Culture <1 Susceptible [employer] Other Urine Culture <0.5 Susceptible [employer] Other Urine Culture <32 Susceptible [employer] Other Urine Culture <2/38 Susceptible [employer] Other Complete Blood Count with Au to Diffon 04-17-2021 Basophils (Bld) [#/Vol] 0.08 10*3/uL Normal 0.00-0.20 [facility] Comment on above: Performed By: #### Shalom VILLATORO, CMP #### [facility] [address], [place] [id number] Basophils/100 WBC (Bld) 1.4 % Normal [facility] [employer] Comment on above: Performed By: #### C IRVING, CMP #### [facility] [address], [place] [id number] Eosinophils (Bld) [#/Vol] 0.13 10*3/uL Normal 0.02-0.50 [facility] Comment on above: Performed By: #### C IRVING, CMP #### [facility] [address], [place] [id number] Eosinophils/100 WBC (Bld) 2.3 % Normal [facility] [employer] Comment on above: Performed By: #### C IRVING, CMP #### [facility] [address], [place] [id number] Erythrocyte distribution width (RBC) [Ratio] 15.6 % High 11.0-15.0 [facility] Comment on above: Performed By: #### C BCAD, CMP #### [facility] [address], [place] [id number] Hematocrit (Bld) [Volume fraction] 42.8 % Normal 35.0-47.0 [facility] [employer] Comment on above: Performed By: #### C BCAD, CMP #### [facility] [address], [place] [id number] Hemoglobin (Bld) [Mass/Vol] 13.3 g/dL Normal 11.6-15.5 [facility] Comment on above: Performed By: #### C BCAD, CMP #### [facility] [address], [place] [id number] Lymphocytes (Bld) [#/Vol] 1.4 10*3/uL Normal 0.9-3.9 [facility] [employer] Comment on above: Performed By: #### C BCAD, CMP #### [facility] [address], [place] [id number] Lymphocytes/100 WBC (Bld) 25.0 % Normal [facility] Comment on above: Performed By: #### C BCALoly, CMP #### [facility] [address], [place] [id number] MCH (RBC) [Entitic mass] 23.7 pg Low 27.0-33.0 [facility] [employer] Comment on above: Performed By: #### C BCAD, CMP #### [facility] [address], [place] [id number] MCHC (RBC) [Mass/Vol] 31.1 g/dL Low 32.0-36.0 [facility] [employer] Comment on above: Performed By: #### C BCAD, CMP #### [facility] [address], [place] [id number] MCV (RBC) [Entitic vol] 76 fL Low 80-100 [facility] Comment on above: Performed By: #### C BCAD, CMP #### [facility] [address], [place] [id number] Monocytes (Bld) [#/Vol] 0.8 10*3/uL Normal 0.2-0.9 [facility] [employer] Comment on above: Performed By: #### C BCAD, CMP #### [facility] [address], [place] [id number] Monocytes/100 WBC (Bld) 14.3 % Normal [facility] [employer] Comment on above: Performed By: #### C BCAD, CMP #### [facility] [address], [place] [id number] Neutrophils (Bld) [#/Vol] 3.2 10*3/uL Normal 1.5-7.8 [facility] Comment on above: Performed By: #### C BCAD, CMP #### [facility] [address], [place] [id number] Neutrophils/100 WBC (Bld) 56.5 % Normal [facility] Comment on above: Performed By: #### C BCAD, CMP #### [facility] [address], [place] [id number] Platelet mean volume (Bld) [Entitic vol] 11.10 fL Normal 7.50-12.50 [facility] Comment on above: Performed By: #### C BCAD, CMP #### [facility] [address], [place] [id number] Platelets (Bld) [#/Vol] 220 10*3/uL Normal 140-400 [facility] Comment on above: Performed By: #### C BCAD, CMP #### [facility] [address], [place] [id number] RBC (Bld) [#/Vol] 5.61 10*6/uL High 3.90-5.20 [facility] Comment on above: Performed By: #### C BCAD, CMP #### [facility] [address], [place] [id number] RDW-SD 42.5 fL Normal 37.0-50.0 [facility] Comment on above: Performed By: #### C BCAD, CMP #### [facility] [address], [place] [id number] WBC (Bld) [#/Vol] 5.6 10*3/uL Normal 3.8-11.0 [facility] [employer] Comment on above: Performed By: #### C BCAD, CMP #### [facility] [address], [place] [id number] [facility] 04-17-2021 Albumin [Mass/Vol] 4.2 g/dL Normal 3.6-5.1 [facility] [employer] Comment on above: Performed By: #### C BCAD, CMP #### [facility] [address], [place] [id number] Albumin/Globulin [Mass ratio] 1.4 {ratio} Normal 1.0-2.5 [facility] Comment on above: Performed By: #### C BCAD, CMP #### [facility] [address], [place] [id number] ALP [Catalytic activity/Vol] 138 U/L High 35-119 [facility] Comment on above: Performed By: #### C BCAD, CMP #### [facility] [address], [place] [id number] ALT [Catalytic activity/Vol] 24 U/L Normal 6-33 [facility] Comment on above: Result Comment: 02/26 Female reference range changed. Performed By: #### C BCAD, CMP #### [facility] [address], [place] [id number] Anion gap [Moles/Vol] 19 mmol/L Normal 12-20 [facility] Comment on above: Result Comment: Effe ctive 04/03/2019 reference range changed. Performed By: #### C BCAD, CMP #### [facility] [address], [place] [id number] AST [Catalytic activity/Vol] 30 U/L Normal 9-34 [facility] Comment on above: Performed By: #### C BCAD, CMP #### [facility] [address], [place] [id number] BUN/CREA 20 Ratio Normal 6-22 [facility] Comment on above: Performed By: #### C BCAD, CMP #### [facility] [address], [place] [id number] Calcium [Mass/Vol] 9.0 mg/dL Normal 8.6-10.2 [facility] Comment on above: Performed By: #### C BCAD, CMP #### [facility] [address], [place] [id number] Chloride [Moles/Vol] 103 mmol/L Normal 98-[address] [facility] Comment on above: Performed By: #### C BCAD, CMP #### [facility] [address], [place] [id number] CO2 [Moles/Vol] 22 mmol/L Normal 20-31 [facility] Comment on above: Performed By: #### C BCAD, CMP #### [facility] [address], [place] [id number] Creatinine [Mass/Vol] 0.6 mg/dL Normal 0.6-1.4 [facility] Comment on above: Performed By: #### C BCAD, CMP #### [facility] [address], [place] [id number] eGFRAA 111 mL/min/1.73m2 Normal >60 [facility] Comment on above: Performed By: #### C BCAD, CMP #### [facility] [address], [place] [id number] eGFRNAA 92 mL/min/1.73m2 Normal >60 [facility] Comment on above: Performed By: #### C BCAD, CMP #### [facility] [address], [place] [id number] Globulin (S) [Mass/Vol] 3.0 g/dL Normal 1.9-3.7 [facility] Comment on above: Performed By: #### C BCAD, CMP #### [facility] [address], [place] [id number] Glucose [Mass/Vol] 113 mg/dL High 65-99 [facility] Specialist Comment on above: Result Comment: For FASTING Glucose --- ADA reference ranges: Normal 65-99 mg/dl Prediabetes 100-125 Diabetes >/= 126 Performed By: #### C BCAD, CMP #### [facility] [address], [place] [id number] Potassium [Moles/Vol] 4.3 mmol/L Normal 3.5-5.5 [facility] Comment on above: Performed By: #### C BCAD, CMP #### [facility] [address], [place] [id number] Protein [Mass/Vol] 7.2 g/dL Normal 6.1-8.1 [facility] Comment on above: Performed By: #### C BCAD, CMP #### [facility] [address], [place] [id number] Sodium [Moles/Vol] 139 mmol/L Normal 135-146 [facility] Comment on above: Performed By: #### C BCAD, CMP #### [facility] [address], [place] [id number] TBIL <0.3 Normal [facility] Comment on above: Performed By: #### C BCAD, CMP #### [facility] [address], [place] [id number] Urea nitrogen [Mass/Vol] 13 mg/dL Normal 7-25 [facility] Comment on above: Performed By: #### C BCAD, CMP #### [facility] [address], [place] [id number] Hemoglobin A1Con 04-17-2021 EAG 119.76 Normal [facility] Comment on above: Performed By: #### A 1C #### [facility] [address], [place] [id number] HbA1c (Bld) [Mass fraction] 5.8 % Normal 4.0-6.0 [facility] Comment on above: Performed By: #### A 1C #### [facility] [address], [place] [id number] Social History Date Type Detail Facility Start: 09-03-2023 Tobacco smoking status Heavy t obacco smoker (finding) [facility] Start: 09-02-2022 Tobacco smoking status Light t obacco smoker (finding) [facility] Start: 1950 Sex Assigned At Female [facility] Sex Assigned At [facility] Tobacco smoking status Smoker (finding) [facility] Tobacco smoking status Never [facility] Vital Signs Date Time Vital Sign Value Performing Clinician Facility 09-03-2023 13:52-0400 Blood Pressure Location Tonya Bundy [facility] 09-03-2023 13:52-0400 Body temperature 96.44 [degF] Tonya Bundy [facility] 09-03-2023 13:52-0400 Diastolic blood pressure 84 mm[Hg] Tonya Lue [facility] 09-03-2023 13:52-0400 Heart rate 78 /min Tonya Lue [facility] 09-03-2023 13:52-0400 Systolic blood pressure 128 mm[Hg] Tonya Lue [facility] 05-07-2023 09:00-0500 Body height 162.56 cm Milla Skinner Other [facility] Other 05-07-2023 09:00-0500 Body mass index (BMI) [Ratio] 28.25 kg/m2 Milla Skinner Other [facility] Other 05-07-2023 09:00-0500 Body temperature 98 [degF] Milla Skinner Other [facility] Other 05-07-2023 09:00-0500 Body weight 74.66 kg Milla Skinner Other [facility] Other 05-07-2023 09:00-0500 Diastolic blood pressure 80 mm[Hg] Milla Skinner Other [facility] Other 05-07-2023 09:00-0500 Respiratory rate 18 /min Milla Skinner Other [facility] Other 05-07-2023 09:00-0500 SaO2% (BldA) [Mass fraction] 98 % Milla Skinner Other [facility] Other 05-07-2023 09:00-0500 Systolic blood pressure 136 mm[Hg] Milla Skinner Other [facility] Other 09-02-2022 10:45-0400 Blood Pressure Location Tonya Lue [facility] 09-02-2022 10:45-0400 Diastolic blood pressure 83 mm[Hg] Tonya Lue [facility] 09-02-2022 10:45-0400 Heart rate 100 /min Tonya Lue [facility] 09-02-2022 10:45-0400 Systolic blood pressure 150 mm[Hg] Tonya Lue [facility] 10-07-2021 10:00-0400 Body height 162.56 cm Heather Nunez Other [facility] [employer] Other 10-07-2021 10:00-0400 Body mass index (BMI) [Ratio] 29.01 kg/m2 Heather Nunez Other [facility] Other 10-07-2021 10:00-0400 Body temperature 99.6 [degF] Heather Nunez Other [facility] Other 10-07-2021 10:00-0400 Body weight 76.66 kg Heather Nunez Other [facility] Other 10-07-2021 10:00-0400 SaO2% (BldA) [Mass fraction] 95 % Heather Nunez Other [facility] Other Functional Status Date Assessment Result Facility 09-03-2023 Functional Status N/A [facility] 09-02-2022 Functional Status N/A [facility] Discharge instructions 09-03-2023 Note Date & Type Note Facility 09-03-2023 Hospital Discharg e instructions Patient Education 09/03/2023 14:39:27 Steps to Quit Smoking Steps to Quit Smoking Smoking tobacco is the leading cause of preventable . It can affect almost every organ in the body. Smoking puts you and those around you at risk for developing many serious chronic diseases. Quitting smoking can be very challenging. Do not get discouraged if you are not successful the first time. Some people need to make many attempts to quit before they achieve long-term success. Do your best to stick to your quit plan, and talk with your health care provider if you have any questions or concerns. How do I get ready to quit? When you decide to quit smoking, create a plan to help you succeed. Before you quit: Pick a date to quit. Set a date within the next 2 weeks to give you time to prepare. Write down the reasons why you are quitting. Keep this list in places where you will see it often. Tell your family, friends, and co-workers that you are quitting. Support from people you are close to can make quitting easier. Talk with your health care provider about your options for quitting smoking. Find out what treatment options are covered by your health insurance. Identify people, places, things, and activities that make you want to smoke (triggers). Avoid them. What first steps can I take to quit smoking? Throw away all cigarettes at home, at work, and in your car. Throw away smoking accessories, such as ashtrays and lighters. Clean your car. Make sure to empty the ashtray. Clean your home, including curtains and carpets. What strategies can I use to quit smoking? Talk with your health care provider about combining strategies, such as taking medicines while you are also receiving in-person counseling. Using these two strategies together makes you more likely to succeed in quitting than if you used either strategy on its own. If you are or , talk with your health care provider about finding counseling or other support strategies to quit smoking. Do not take medicine to help you quit smoking unless your health care provider tells you to. Quit right away Quit smoking completely, instead of gradually reducing how much you smoke over a period of time. Stopping smoking right away may be more successful than gradually quitting. Attend in-person counseling to help you build problem-solving skills. You are more likely to succeed in quitting if you attend counseling sessions regularly. Even short sessions of 10 minutes can be effective. Take medicine You may take medicines to help you quit smoking. Some medicines require a prescription. You can also purchase skpt-lay-eeelnel medicines. Medicines may have nicotine in them to replace the nicotine in cigarettes. Medicines may: Help to stop cravings. Help to relieve withdrawal symptoms. Your health care provider may recommend: Nicotine patches, gum, or lozenges. Nicotine inhalers or sprays. Non-nicotine medicine that you take by mouth. Find resources Find resources and support systems that can help you quit smoking and remain smoke-free after you quit. These resources are most helpful when you use them often. They include: Online chats with a counselor. Telephone quitlines. Printed self-help materials. Support groups or group counseling. Text messaging programs. Mobile phone apps or applications. Use apps that can help you stick to your quit plan by providing reminders, tips, and encouragement. Examples of free services include Quit Guide from the CDC and smokefree.gov What can I do to make it easier to quit? Reach out to your family and friends for support and encouragement. Call telephone quitlines, such as 2-552-ZWMT-NOW, reach out to support groups, or work with a counselor for support. Ask people who smoke to avoid smoking around you. Avoid places that trigger you to smoke, such as bars, parties, or smoke-break areas at work. Spend time with people who do not smoke. Lessen the stress in your life. Stress can be a smoking trigger for some people. To lessen stress, try: ?Exercising regularly. ?Doing deep-breathing exercises. ?Doing yoga. ?Meditating. What benefits will I see if I quit smoking? Over time, you should start to see positive results, such as: Improved sense of smell and taste. Decreased coughing and sore throat. Slower heart rate. Lower blood pressure. Clearer and healthier skin. The ability to breathe more easily. Fewer sick days. Summary Quitting smoking can be very challenging. Do not get discouraged if you are not successful the first time. Some people need to make many attempts to quit before they achieve long-term success. When you decide to quit smoking, create a plan to help you succeed. Quit smoking right away, not slowly over a period of time. Find resources and support systems that can help you quit smoking and remain smoke-free after you quit. This information is not intended to replace advice given to you by your health care provider. Make sure you discuss any questions you have with your health care provider. Document Revised: 03/06/2022 Document Reviewed: 03/06/2022 [employer] Patient Education 2022 [employer]. 09/03/2023 14:05:48 Intravenous Pyelogram Intravenous Pyelogram An intravenous pyelogram is an X-ray of the urinary tract. The urinary tract is the system through which urine travels. This tract includes the kidneys, ureters, and bladder. An intravenous pyelogram can help your health care provider find problems, such as: Kidney stones. Bladder stones. An enlarged prostate. Tumors. Tell a health care provider about: Any allergies you have. All medicines you are taking, including vitamins, herbs, eye drops, creams, and pnnt-bbc-mcleina medicines. Any problems you or family members have had with anesthetic medicines. Any blood disorders you have. Any surgeries you have had. Any medical conditions you have. Whether you are or may be . What are the risks? Generally, this is a safe procedure. However, problems may occur, including: Nausea. An allergic reaction to the dye that is used during the procedure. What happens before the procedure? Follow instructions from your health care provider about eating or drinking restrictions. Follow instructions from your health care provider about preparing for the test by taking an oral bowel prep. Ask your health care provider about changing or stopping your regular medicines. This is especially important if you are taking diabetes medicines or blood thinners. You may need to remove glasses, jewelry, and any other metal objects. You may be asked to put on a hospital gown. What happens during the procedure? You will lie down on an exam table. An IV will be inserted into one of your veins. A contrast dye will be injected through the IV. This dye will help your health care provider see the urinary tract better on the X-rays. When the dye enters your body, you may feel warm or have a strange taste in your mouth. The feeling will not last long. A decontamination technician will take X-rays. To make the X-rays clearer: ?Pressure may be applied to your abdomen. ?You may be asked not to move for long periods of time. ?You may be asked to change positions. You may be asked to empty your bladder before the final X-ray is taken. The procedure may vary among health care providers and hospitals. What can I expect after procedure? You may feel weak from not eating or drinking. You may return to your normal activities right after the procedure. You may safely drive home right after the procedure. Follow these instructions at home: Return to your normal activities as told by your health care provider. Ask your health care provider what activities are safe for you. Drink enough fluid to keep your urine pale yellow. This will help flush out the dye in your body. Take qqiy-ajx-wjscyza and prescription medicines only as told by your health care provider. It is up to you to get the results of your procedure. Ask your health care provider, or the department that is doing the procedure, when your results will be ready. Keep all follow-up visits as told by your health care provider. This is important. Contact a health care provider if: You start urinating less than you usually do. Get help right away if: You feel nauseous or you vomit. You have itching or itchy, red, swollen areas on the skin (hives). You have trouble breathing. Your throat swells. You have chest pain. You have chills or a fever. Summary An intravenous pyelogram is an X-ray of the urinary tract. It is used to help your health care provider find problems such as kidney or bladder stones, an enlarged prostate, or tumors. This is a safe procedure. However, problems may occur, including nausea or an allergic reaction to the dye that is used. Follow instructions from your health care provider about eating and drinking. Ask if you need to change or stop any medicines you are taking. During the procedure, a decontamination technician will insert an IV into one of your veins, inject a contrast dye, and then take X-rays of your abdomen. You may resume normal activities after the procedure. Get help right away if you have nausea, itchy skin, trouble breathing, swelling in your throat, chest pain, or fever. This information is not intended to replace advice given to you by your health care provider. Make sure you discuss any questions you have with your health care provider. Document Revised: 11/26/2021 Document Reviewed: 04/19/2019 [employer] Patient Education 2022 [employer]. Follow Up Care 06/23/2023 08:39:30 With:Gregor LUIS, KENNEDY Whaley, MERE Address: When: Unknown [facility] Evaluation note 05-07-2023 Note Date & Type [...] understanding and is agreeable to treatment plan. [facility] Other Hospital Discharge instructions 09-02-2022 Note Date [...] include: ?8 oz (237 mL) of milk, gfivhvx-jxecxzmmcgao-yeyzs milk, and calcium-fortifiedfruit juice. Calcium-fortified means that [...] ?Spinach (cooked), rhubarb, beets, sweet potatoes, and Slovak chard. ?Peanuts. ?Potato chips, slovenian fries, and baked potatoes with skin on. ?Nuts and nut products. ?Chocolate. If you regularly take a diuretic medicine, make sure to eat at least 1 or 2 servings of fruits or vegetables that are high in potassium each day. These include: ?Avocado. ?Banana. ?Helper, prune, carrot, or tomato juice. ?Baked potato. [...] magnesium, fish oil, or vitamin B6. Take oepc-fod-thobolf and prescription medicines only as told by [...] Casseroles. Pizza. Lasagna. Frozen meals. Potato chips. Belarusian fries. The items listed above may not [...] provider. Document Revised: 11/24/2021 Document Reviewed: 11/24/2021 [employer] Patient Education 2022 [employer]. Follow Up Care 03/04/2021 10:12:25 With:Gregor LUIS, KENNEDY Whaley, URO Address: When: Unknown [facility] Evaluation note 10-07-2021 Note Date & Type [...] R30.0) Sep, Hematuria, unspecified (ICD-10 - R31.9) [facility] Other Evaluation + Plan note Note Date & Type Note Facility Evaluation + Plan note No data available for this section [facility] Evaluation note Note Date & Type Note Facility Evaluation note No assessment information availa [facility] Work Phone: History general Narrative - Reported [...] Hysterectomy Hospitalization History See past surgical hx [facility] Other Progress note Note Date & Type Note Facility Progress note No data available for this section [facility] Summary Purpose Family History No Family History Records FoundNo Family History Records FoundNo Family History Records FoundNo Family History Records Found No data available for this section No Family History Records Found Advance Directives No Advanced Directives Records Found Advance Directive Response Recorded Date/ Time Advance Directives No July 31, 2019 9:58am Chief Complaint and Reason for Visit Chief Complaint i70.91 h81.4 Chief Complaint i70.91 h81.4 r00.2 Additional Source Comments INFORMATION SOURCE (unrecogn ized section and content) DATE CREATED AUTHOR 04/18/2021 [facility] Specialist DATE CREATED AUTHOR AUTHOR'S ORGANIZ ATION 09/07/2022 [facility] DATE CREATED AUTHOR AUTHOR'S ORGANIZ ATION 08/21/2023 [facility] DATE CREATED AUTHOR AUTHOR'S ORGANIZ ATION 08/24/2023 [facility] Specialists EPIC DATE CREATED AUTHOR AUTHOR'S ORGANIZ ATION 09/05/2023 [facility] REASON FOR VISIT (unrecogniz ed section and content) DYSURIA, SOB, COUGH, CALL CE LL PHONEDYSURIA, SOB, COUGH, CALL CELL PHONEDYSURIA, SOB, COUGH, CALL CELL PHONElow back pain while moving heavy object Patient Care team informatio n (unrecognized section and content) Team Status: Active Member Role Status Dates Mike Genao DO Primary Care Provider Active Team Status: Inactive Member Role Status Dates TATIANNA Penaloza Attending Provider Krystal Genao DO Primary Care Provider Active Team Status: Inactive Member Role Status Dates Mike Genao DO Primary Care Provider, Attending Flora jennings [...] BE BASED ON THE PRIMARY CLINICAL RECORDS. [facility] provides no warranty or guarantee of the accuracy or completeness of information in this document.
[2023-09-21] MEDS: FUROSEMIDE 40 MG/4 ML VIAL IVP (12:05)
== END 2023-09-21 11:11 | disposition home or self-care (01) ==
LOC: NM 11:11
PROVIDERS: Visit Provider Urology
DX: Q62.11 Congenital occlusion of ureteropelvic junction (principal)
CPT/HCPCS: 78709; A9562; J1940

== ENCOUNTER 2023-10-12 08:00 | Outpatient (OUT) | payer MEDICARE, SELFPAY ==
--- OUTSIDE RECORDS SUMMARY | 2023-10-12 08:19 | XMS_ITS | CCD ---
Author Organization [facility] Care Team Providers Care Laundry Tech Name Role Phone Heather Nunez Unavailable MIKE GENAO Primary Care Physician [phone] MISC, DR ATWOOD Primary Care Unavailable ORIANA DELGADO Attending Unavailable ORIANA DELGADO Consulting Unavailable ORIANA DELGADO Admitting Unavailable FRANCIS HOLDEN Admitting Unavailable MIREYA, DR ATWOOD Primary Care Unavailable FRNACIS HOLDEN Attending Unavailable FRANCIS HOLDEN Consulting Unavailable TATIANNA Amezquita Attending Provider DO Mike Genao Primary Care Provider DO Mike Genao Attending Provider Milla Skinner [...] GENAO Attending Unavailable MIKE GENAO Referring Unavailable QAISM CHAUDHRY Attending Unavailable MIKE GENAO Referring Unavailable MIKE GENAO Referring Unavailable RITCHIE AMEZQUITA E Attending Unava ilable QASIM CHAUDHRY Referring Unavailable MIKE GENAO Attending Unavailable MIKE GENAO Referring Unavailable Tonya Bundy Attending Unavailable Tonya Bundy Attending Unavailable Tonya Bundy Attending Unavailable Allergies Allergy Classification Reported Allergen(s) Allergy Type Date of Onset Reaction(s) Facility (7 sources) Codeine; Translations: [codeine] Drug Allergy stomach upset, unknown [facility] (1 source) Codeine Drug Allergy 0 [facility] Repository (1 source) Codeine Drug Allergy 4 [facility] Repository Medications Current Medications Medication Drug [...] 03/01/19 Status: Ordered take 1 capsule by [facility] every eight hours hydrOXYzine Pamoate 50 MG [...] 10-07-2021 Episodic Other aftercare (1 source) Other usp (current) drug therapy; Translations: [OTH ETCHER ENAMELING CURRENT DRUG THERAPY] Onset: 12-09-2021 Episodic Urinary tract infections (3 sources) Urinary tract infection, site not specified Onset: 10-07-2021 Resolved: 10-07-2021 Episodic Results Test Name Value Interpretation Reference Range Facility Screenson 09-06-2023 Screens [id number]#[id number] Normal [facility] Ambulatory Visit Summaryon 0 09-03-2023 Ambulatory Visit [...] Follow Up with Gregor LUIS, Tonya Vo, URL, URO When: Where: Medications [...] away ? (more content not included)... Normal [facility] Patient Educationon 09-03-19 24 Patient Education Pulmonary Medicine Steps to Quit [...] require a prescription. You can also purchase cadi-yzu-axrdyqj medicines. Medicines may have nicotine in them [...] and encouragement. Call telephone quitlines, such as 9-834-YEER-NOW, reach out to support groups, or work [...] quit smoki (more content not included)... Normal [facility] Urology Office/Clinic Noteon 09-03-2023 Urology Office/Clinic Note Chief Complaint F/U with Renal scan HPI Staff Pt here today for a F/U with Renal scan @ [facility] on 06/21/23 Previous DX: frequency of [...] With Wh (more content not included)... Normal [facility] Comment on above: Result Comment: Elec tronically Signed By: Tonya Bundy MD\.br\Date and Time Signed: 09/03/23 14:51 EDT\.br\Electronically Co-Signed By: Jackie Zarate\.br\Date and Time Co-Signed: 09/03/23 14:43 EDT\.br\Electronically Co-Signed By: Jackie Zarate\.br\Date and Time Co-Signed: 09/03/23 14:46 EDT RAD - Nuclear Medicine Repor ton 06-22-2023 RAD - Nuclear Medicine Report [id number] #[id number] Normal [facility] XR LUMBAR SPINE 2-3 VIEWSon 05-27-2023 XR LUMBAR SPINE 2-3 VIEWS FINDINGS: Lumbar vertebral bodies normal in height. 4 mm anterolisthesis, L4 on L5. Diffuse disc space narrowing L5-S1. 3.6 mm retrolisthesis L5 on S1. No fracture. No bone lesion. IMPRESSION: Grade 1 L4 spondylolisthesis. L5 retrolisthesis. Moderate degenerative change lower lumbar spine. ELECTRONICALLY SIGNED BY: Hernandez Nur MD Normal Not Available [facility] echo transthoracicon [facility] echo transthoracic [facility] Main [employer] [address] [place] [address] Echocardiogram Signed Patient: Christal Ervin MR#: [id number] : 1950 Acct:[id number] Age/Sex: 72 / F ADM Date: 04/08/23 Loc: Room: Type: [facility] Attending Dr: Mike Genao DO Ordering Provider: Mike Genao DO Date of Service: 04/08/23/ [facility] echo transthoracic: PALPITATIONS Copies to: MD [...] mmHg RAP systole: 5.0 mmHg Transcribed By: SCV Performed At: 04/08/23 1045 Signed By: Martin Mcnulty MD 04/08/23 1646 Normal [facility] [place] holter monitor recordingo n 03-11-2023 [place] [address] Holter Monitor Report Signed Patient: Christal Ervin MR#: [id number] : 1950 Acct:[id number] Age/Sex: 72 / F ADM Date: 03/08/23 Loc: Room: Type: [facility] Attending Dr: Ritchie CAMPUZANO Copies to: Ritchie [...] MD 03/11/23 1726 Signed By: 03/13/23 1239 Normal [facility] Patient Letter FTon [address] [facility] February 09, [address] [id number] : 1950 Sent via certified and regular [...] Sincerely, Tonya Bundy M.D. [facility] [place] [address] [place] [address] Normal [facility] US KIDNEYSon 08-26-2022 US KIDNEYS EXAM: US [...] CATINA KHANNA Date: 2022-08-26 10:33 Normal [facility] CBC AUTO DIFFon 12-07-2021 BASO # 0.0 103/ul Normal 0.0-0.1 [facility] Comment on above: Performed By: #### C BC #### [facility] [address] [place] [address] Dr. Senait Pisano Basophils/100 WBC (Bld) 1.0 % Normal 0.2-2.0 [facility] Comment on above: Performed By: #### C BC #### [facility] [address] [place] [address] Dr. Senait Pisano EO # 0.1 103/ul Normal 0.0-0.7 [facility] Comment on above: Performed By: #### C BC #### [facility] [address] [place] [address] Dr. Senait Pisano Eosinophils/100 WBC (Bld) 2.0 % Normal 0.9-7.0 [facility] Comment on above: Performed By: #### C BC #### [facility] [address] [place] [address] Dr. Senait Pisano Erythrocyte distribution width (RBC) [Ratio] 15.7 % Critically high 11.0-15.0 [facility] Comment on above: Performed By: #### C BC #### [facility] [address] [place] [address] Dr. Senait Pisano Hematocrit (Bld) [Volume fraction] 38.8 % Normal 36.0-48.0 [facility] Comment on above: Performed By: #### C BC #### [facility] [address] [place] [address] Dr. Senait Pisano Hemoglobin (Bld) [Mass/Vol] 12.0 g/dL Normal 12.0-16.0 [facility] Comment on above: Performed By: #### C BC #### [facility] [address] [place] [address] Dr. Senait Pisano IG # 0.01 10e3/ul Normal 0.00-0.03 [facility] Comment on above: Performed By: #### C BC #### [facility] [address] [place] [address] Dr. Senait Pisano IG % 0.2 % Normal 0.0-0.5 [facility] Comment on above: Performed By: #### C BC #### [facility] [address] [place] [address] Dr. Senait Pisano LYMPH # 0.9 103/ul Critically low 1.2-3.8 [facility] Comment on above: Performed By: #### C BC #### [facility] [address] [place] [address] Dr. Senait iPsano Lymphocytes/100 WBC (Bld) 20.8 % Normal 20.5-60.0 [facility] Comment on above: Performed By: #### C BC #### [facility] [address] [place] [address] Dr. Senait Pisano MANUAL DIFF REQ NO Normal [facility] Comment on above: Performed By: #### C BC #### [facility] [address] [place] [address] Dr. Senait Pisano MCH (RBC) [Entitic mass] 23.6 pg Critically low 26.7-34.0 [facility] Comment on above: Performed By: #### C BC #### [facility] [address] [place] [address] Dr. Senait Pisano MCHC (RBC) [Mass/Vol] 30.9 g/dL Normal 29.9-35.2 [facility] Comment on above: Performed By: #### C BC #### [facility] [address] [place] [address] Dr. Senait Pisano MCV (RBC) [Entitic vol] 76.4 fL Critically low 81.0-99.0 [facility] Comment on above: Performed By: #### C BC #### [facility] [address] [place] [address] Dr. Senait Pisano MONO # 0.5 103/ul Normal 0.3-0.8 [facility] Comment on above: Performed By: #### C BC #### [facility] [address] [place] [address] Dr. Senait Pisano Monocytes/100 WBC (Bld) 13.2 % Critically high 1.7-12.0 [facility] Comment on above: Performed By: #### C BC #### [facility] [address] [place] [address] Dr. Senait Pisano NEUT # 2.6 103/ul Normal 1.4-6.5 [facility] Comment on above: Performed By: #### C BC #### [facility] [address] [place] [address] Dr. Senait Pisano Neutrophils/100 WBC (Bld) 62.8 % Normal 43.0-75.0 [facility] Comment on above: Performed By: #### C BC #### [facility] [address] [place] [address] Dr. Senait Pisano Platelet mean volume (Bld) [Entitic vol] 10.0 fL Normal 9.5-13.5 [facility] Comment on above: Performed By: #### C BC #### [facility] [address] [place] [address] Dr. Senait Pisano PLT 177 103/ul Normal 150-450 [facility] Comment on above: Performed By: #### C BC #### [facility] [address] [place] [address] Dr. Senait Pisano RBC 5.08 106/ul Normal 4.20-5.40 [facility] Comment on above: Performed By: #### C BC #### [facility] [address] [place] [address] Dr. Senait Pisano WBC 4.1 103/ul Normal 4.0-11.0 [facility] Comment on above: Performed By: #### C BC #### [facility] [address] [place] [address] Dr. Senait Pisano PROF CHEM 8 (BAS METB)on Anion gap [Moles/Vol] 8.3 mmol/L Normal [facility] Comment on above: Performed By: #### B MP #### [facility] [address] [place] [address] Dr. Senait Pisano Calcium [Mass/Vol] 8.0 mg/dL Critically low 8.5-10.1 [facility] Comment on above: Performed By: #### B MP #### [facility] [address] [place] [address] Dr. Senait Pisano Chloride [Moles/Vol] 105 mmol/L Normal 98-107 [facility] Comment on above: Performed By: #### B MP #### [facility] [address] [place] [address] Dr. Senait Pisano CO2 [Moles/Vol] 28.6 mmol/L Normal 21.0-32.0 [facility] Comment on above: Performed By: #### B MP #### [facility] [address] [place] [address] Dr. Senait Pisano Creatinine [Mass/Vol] 0.68 mg/dL Normal 0.55-1.02 [facility] Comment on above: Performed By: #### B MP #### [facility] [address] [address] [address] Senait Pisano EGFR-AF MACEDONIAN >60 Normal >=60 [facility] Comment on above: Performed By: #### B MP #### [facility] [id number] Senait Pisano EGFR-NON AF MACEDONIAN >60 Normal >=60 [facility] Comment on above: Performed By: #### B MP #### [facility] [address] [address] [address] Senait Pisano Glucose [Mass/Vol] 192 mg/dL Critically high 74-106 [facility] Comment on above: Performed By: #### B MP #### [facility] [address] [place] [address] Dr. Senait Pisano Potassium [Moles/Vol] 3.9 mmol/L Normal 3.5-5.1 [facility] Comment on above: Performed By: #### B MP #### [facility] [address] [address] [address] Senait Pisano Sodium [Moles/Vol] 138 mmol/L Normal 136-145 [facility] Comment on above: Performed By: #### B MP #### [facility] [address] [place] [address] Dr. Senait Pisano Urea nitrogen [Mass/Vol] 9.0 mg/dL Normal 7.0-18.0 [facility] Comment on above: Performed By: #### B MP #### [facility] [address] [place] [address] Dr. Senait Pisano Urea nitrogen/Creatinine [Mass ratio] 13.2 mg/mg Normal [facility] Comment on above: Performed By: #### B MP #### [facility] [id number] Senait Pisano Quick Fluon 10-07-2021 FLUAV Ab CF (S) [Titer] Negative [email or web address] Other FLUBV Ab CF (S) [Titer] Negative [email or web address] Other Urinalysis - AUTOMATEDon Appearance (U) CLOUDY [employer] Other Bilirubin Ql (U) Negative [address] Other Color (U) YELLOW [email or web address] Other Glucose Ql (U) Negative [employer] Other Hemoglobin Ql (U) MODERATE [employer] Other Ketones Ql (U) Negative [employer] Other Leukocyte esterase Test strip Ql (U) LARGE [email or web address] Other Nitrite Ql (U) Positive [employer] Other pH (U) 5.5 [pH] [email or web address] Other Protein Ql (U) 30 [employer] Other Specific gravity (U) [Rel density] <1.005 [email or web address] Other Urobilinogen (U) [Mass/Vol] 0.2 mg/dL [email or web address] Other Urinalysis - AUTOMATED [email or web address] Other Urine Cultureon 10-07-2021 Urine Culture >100,000 [email or web address] Other Urine Culture <16 Susceptible [employer] Other Urine Culture >16 Resistant [email or web address] Other Urine Culture <4 Susceptible [employer] Other Urine Culture 4 Susceptible [employer] Other Urine Culture <2 Susceptible [employer] Other Urine Culture <1 Susceptible [employer] Other Urine Culture <0.5 Susceptible [employer] Other Urine Culture <32 Susceptible [employer] Other Urine Culture <2/38 Susceptible [employer] Other Complete Blood Count with Au to Diffon 04-17-2021 Basophils (Bld) [#/Vol] 0.08 10*3/uL Normal 0.00-0.20 [facility] Comment on above: Performed By: #### C BCAD, CMP #### [facility] [address] [place], [place] [id number] Basophils/100 WBC (Bld) 1.4 % Normal [facility] Comment on above: Performed By: #### C BCALoly, CMP #### [facility] [address] [place], [place] [id number] Eosinophils (Bld) [#/Vol] 0.13 10*3/uL Normal 0.02-0.50 [facility] [employer] Comment on above: Performed By: #### C BCAD, CMP #### [facility] [address] [place], [place] [id number] Eosinophils/100 WBC (Bld) 2.3 % Normal [facility] [employer] Comment on above: Performed By: #### C BCAD, CMP #### [facility] [address] [place], [place] [id number] Erythrocyte distribution width (RBC) [Ratio] 15.6 % High 11.0-15.0 [facility] [employer] Comment on above: Performed By: #### C BCAD, CMP #### [facility] [address] [place], [place] [id number] Hematocrit (Bld) [Volume fraction] 42.8 % Normal 35.0-47.0 [facility] [employer] Comment on above: Performed By: #### C BCAD, CMP #### [facility] [address] [place], [place] [id number] Hemoglobin (Bld) [Mass/Vol] 13.3 g/dL Normal 11.6-15.5 [facility] [employer] Comment on above: Performed By: #### C BCAD, CMP #### [facility] [address] [place], [place] [id number] Lymphocytes (Bld) [#/Vol] 1.4 10*3/uL Normal 0.9-3.9 [facility] Comment on above: Performed By: #### C IRVING, CMP #### [facility] [address] [place], [place] [id number] Lymphocytes/100 WBC (Bld) 25.0 % Normal [facility] Comment on above: Performed By: #### C IRVING, CMP #### [facility] [address] [place], [place] [id number] MCH (RBC) [Entitic mass] 23.7 pg Low 27.0-33.0 [facility] Comment on above: Performed By: #### C IRVING, CMP #### [facility] [address] [place], [place] [id number] MCHC (RBC) [Mass/Vol] 31.1 g/dL Low 32.0-36.0 [facility] [employer] Comment on above: Performed By: #### C IRVING, CMP #### [facility] [address] [place], [place] [id number] MCV (RBC) [Entitic vol] 76 fL Low 80-100 [facility] Comment on above: Performed By: #### C IRVING, CMP #### [facility] [address] [place], [place] [id number] Monocytes (Bld) [#/Vol] 0.8 10*3/uL Normal 0.2-0.9 [facility] Comment on above: Performed By: #### C BCALoly, CMP #### [facility] [address], [place] [id number] Monocytes/100 WBC (Bld) 14.3 % Normal [facility] Comment on above: Performed By: #### C BCALoly, CMP #### [facility] [address] [place], [place] [id number] Neutrophils (Bld) [#/Vol] 3.2 10*3/uL Normal 1.5-7.8 [facility] [employer] Comment on above: Performed By: #### C IRVING, CMP #### [facility] [address] [place], [place] [id number] Neutrophils/100 WBC (Bld) 56.5 % Normal [facility] Comment on above: Performed By: #### C BCALoly, CMP #### [facility] [address], [place] [id number] Platelet mean volume (Bld) [Entitic vol] 11.10 fL Normal 7.50-12.50 [facility] Comment on above: Performed By: #### C BCAD, CMP #### [facility] [address] [place], [place] [id number] Platelets (Bld) [#/Vol] 220 10*3/uL Normal 140-400 [facility] Comment on above: Performed By: #### C IRVING, CMP #### [facility] [address] [place], [place] [id number] RBC (Bld) [#/Vol] 5.61 10*6/uL High 3.90-5.20 [facility] Comment on above: Performed By: #### C BCALoly, CMP #### [facility] [address], [place] [id number] RDW-SD 42.5 fL Normal 37.0-50.0 [facility] Comment on above: Performed By: #### C BCALoly, CMP #### [facility] [address] [place], [place] [id number] WBC (Bld) [#/Vol] 5.6 10*3/uL Normal 3.8-11.0 [facility] [employer] Comment on above: Performed By: #### C BCAD, CMP #### [facility] [address], [place] [id number] Comprehensive Metabolic Pane [facility] 04-17-2021 Albumin [Mass/Vol] 4.2 g/dL Normal 3.6-5.1 [facility] [employer] Comment on above: Performed By: #### C BCAD, CMP #### [facility] [address], [place] [id number] Albumin/Globulin [Mass ratio] 1.4 {ratio} Normal 1.0-2.5 [facility] Comment on above: Performed By: #### C BCAD, CMP #### [facility] [address] [place] [id number] ALP [Catalytic activity/Vol] 138 U/L High 35-119 [facility] Comment on above: Performed By: #### C BCAD, CMP #### [facility] [address] [place] [id number] ALT [Catalytic activity/Vol] 24 U/L Normal 6-33 [facility] Comment on above: Result Comment: 02/26 Female reference range changed. Performed By: #### C BCAD, CMP #### [facility] [address] [place], [place] [id number] Anion gap [Moles/Vol] 19 mmol/L Normal 12-20 [facility] Comment on above: Result Comment: Effe ctive 04/03/2019 reference range changed. Performed By: #### C BCAD, CMP #### [facility] [address] [place], [place] [id number] AST [Catalytic activity/Vol] 30 U/L Normal 9-34 [facility] Comment on above: Performed By: #### C BCAD, CMP #### [facility] [address] [place], [place] [id number] BUN/CREA 20 Ratio Normal 6-22 [facility] Comment on above: Performed By: #### C BCAD, CMP #### [facility] [place] [place] [id number] Calcium [Mass/Vol] 9.0 mg/dL Normal 8.6-10.2 [facility] Comment on above: Performed By: #### C BCAD, CMP #### [facility] [address] [place], [place] [id number] Chloride [Moles/Vol] 103 mmol/L Normal 98-107 [facility] Comment on above: Performed By: #### C BCAD, CMP #### [facility] [address] [place] [id number] CO2 [Moles/Vol] 22 mmol/L Normal 20-31 [facility] Comment on above: Performed By: #### C BCAD, CMP #### [facility] [address] [place], [place] [id number] Creatinine [Mass/Vol] 0.6 mg/dL Normal 0.6-1.4 [facility] [employer] Comment on above: Performed By: #### C BCAD, CMP #### [facility] [address], [place] [id number] eGFRAA 111 mL/min/1.73m2 Normal >60 [facility] Comment on above: Performed By: #### C BCAD, CMP #### [facility] [address], [place] [id number] eGFRNAA 92 mL/min/1.73m2 Normal >60 [facility] [employer] Comment on above: Performed By: #### C BCAD, CMP #### [facility] [address], [place] [id number] Globulin (S) [Mass/Vol] 3.0 g/dL Normal 1.9-3.7 [facility] [employer] Comment on above: Performed By: #### C BCAD, CMP #### [facility] [address], [place] [id number] Glucose [Mass/Vol] 113 mg/dL High 65-99 [facility] [employer] Comment on above: Result Comment: For FASTING Glucose --- ADA reference ranges: Normal 65-99 mg/dl Prediabetes 100-125 Diabetes >/= 126 Performed By: #### C BCAD, CMP #### [facility] [address], [place] [id number] Potassium [Moles/Vol] 4.3 mmol/L Normal 3.5-5.5 [facility] [employer] Comment on above: Performed By: #### C BCAD, CMP #### [facility] [address], [place] [id number] Protein [Mass/Vol] 7.2 g/dL Normal 6.1-8.1 [facility] [employer] Comment on above: Performed By: #### C BCAD, CMP #### [facility] [address], [place] [id number] Sodium [Moles/Vol] 139 mmol/L Normal 135-146 [facility] [employer] Comment on above: Performed By: #### C BCAD, CMP #### [facility] [address], [place] [id number] TBIL <0.3 Normal [facility] [employer] Comment on above: Performed By: #### C BCAD, CMP #### [facility] [address], [place] [id number] Urea nitrogen [Mass/Vol] 13 mg/dL Normal 7-25 [facility] [employer] Comment on above: Performed By: #### C BCAD, CMP #### [facility] [address], [place] [id number] Hemoglobin A1Con 04-17-2021 EAG 119.76 Normal [facility] [employer] Comment on above: Performed By: #### A 1C #### [facility] [address], [place] [id number] HbA1c (Bld) [Mass fraction] 5.8 % Normal 4.0-6.0 [facility] [employer] Comment on above: Performed By: #### A 1C #### [facility] [address], [place] [id number] Vital Signs Date Time Vital Sign Value Performing Clinician Facility 09-03-2023 13:52-0400 Blood Pressure Location Tonya Lue [facility] 09-03-2023 13:52-0400 Body temperature 96.44 [degF] Tonya Lue [facility] 09-03-2023 13:52-0400 Diastolic blood pressure 84 mm[Hg] Tonya Lue [facility] 09-03-2023 13:52-0400 Heart rate 78 /min Tonya Lue [facility] 09-03-2023 13:52-0400 Systolic blood pressure 128 mm[Hg] Tonya Lue [facility] 05-07-2023 09:00-0500 Body height 162.56 cm Milla Skinner Other [email or web address] Other 05-07-2023 09:00-0500 Body mass index (BMI) [Ratio] 28.25 kg/m2 Milla Skinner Other [email or web address] Other 05-07-2023 09:00-0500 Body temperature 98 [degF] Milla Skinner Other [email or web address] Other 05-07-2023 09:00-0500 Body weight 74.66 kg Milla Skinner Other [email or web address] Other 05-07-2023 09:00-0500 Diastolic blood pressure 80 mm[Hg] Milla Skinner Other [email or web address] Other 05-07-2023 09:00-0500 Respiratory rate 18 /min Milla Skinner Other [email or web address] Other 05-07-2023 09:00-0500 SaO2% (BldA) [Mass fraction] 98 % Milla Skinner Other [email or web address] Other 05-07-2023 09:00-0500 Systolic blood pressure 136 mm[Hg] Milla Skinner Other [email or web address] Other 09-02-2022 10:45-0400 Blood Pressure Location Tonya Lue [facility] 09-02-2022 10:45-0400 Diastolic blood pressure 83 mm[Hg] Tonya Lue [facility] 09-02-2022 10:45-0400 Heart rate 100 /min Tonya Lue [facility] 09-02-2022 10:45-0400 Systolic blood pressure 150 mm[Hg] Tonya Mercedese [facility] 10-07-2021 10:00-0400 Body height 162.56 cm Heather Nunez Other [email or web address] Other 10-07-2021 10:00-0400 Body mass index (BMI) [Ratio] 29.01 kg/m2 Heather Nunez Other [email or web address] Other 10-07-2021 10:00-0400 Body temperature 99.6 [degF] Heather Nunez Other [email or web address] Other 10-07-2021 10:00-0400 Body weight 76.66 kg Heather Nunez Other [email or web address] Other 10-07-2021 10:00-0400 SaO2% (BldA) [Mass fraction] 95 % Heather Nunez Other [email or web address] Other Encounters Encounter Date Encounter Type Care Provider Facility Start: 03-03-2024 ambulatory Tonya M. Lue Facility:[facility] Start: 09-08-2023 ambulatory Tonya M. Lue Facility:[facility] Start: 09-03-2023 End: 09-03-2023 ambulatory Tonya M. Lue Facility:[facility] Start: 09-03-2023 End: 09-03-2023 Patient encounter procedure Tonya M. Lue [facility] Start: 08-24-2023 End: 08-24-2023 ambulatory MIKE GENAO Not Available Start: 08-19-2023 ambulatory Ric Moreland acility:[facility] Start: 06-01-2023 ambulatory Mike Vaschak Facility :[facility] Start: 05-27-2023 End: 05-28-2023 ambulatory QASIM CHAUDHRY Not Available Start: 05-07-2023 End: 05-07-2023 ambulatory Milla Skinner Other [email or web address] Other Start: 05-07-2023 Office outpatient visit 25 minutes Milla Skinner [facility] Start: 04-19-2023 End: 04-19-2023 ambulatory MIKE J MEGHANK Not Available Start: 04-08-2023 End: 04-08-2023 ambulatory Mike Gomezchak Facility:[facility] Start: 04-08-2023 End: 04-08-2023 ambulatory DO Mike Gomezchak Work Phone: [facility] Work Phone: Start: 04-08-2023 End: 04-08-2023 Patient encounter procedure DO Mike Meghank Work Phone: [facility] Work Phone: Start: 03-08-2023 End: 03-08-2023 ambulatory Ritchie Amezquita Facility:[facility] Start: 03-08-2023 End: 03-08-2023 ambulatory DO Mike Meghank Work Phone: [facility] Work Phone: Start: 03-08-2023 End: 03-08-2023 Patient encounter procedure DO Mike Meghank Work Phone: [facility] Work Phone: Start: 02-23-2023 End: 02-23-2023 ambulatory MIKE J VASCHAK Not Available Start: 09-02-2022 End: 09-02-2022 Patient encounter procedure Tonya Bundy [facility] Start: 08-26-2022 ambulatory FRANCIS HOLDEN Facility :[facility] Start: 12-07-2021 End: 12-07-[address] DOCTOR GOMES Facility:[facility] Start: 10-07-2021 End: 10-07-2021 ambulatory Heather Alcazarmond Other [facility] [employer] Other Start: 10-07-2021 Office outpatient visit 15 minutes Heather Nunez [facility] [...] unspecified formulation Tonya Lue [facility] 02-28-2021 SARS-CoV-2 (COVID-19 ) Ad26 vaccine, recombinant Tonya Lue [facility] 02-13-2021 influenza virus vacc ine, unspecified formulation Tonya Lue [facility] 07-06-2020 SARS-CoV-2 (COVID-19 ) mRNA-1273 vaccine Tonya Lue [facility] 06-27-2020 SARS-CoV-2 (COVID-19 ) Ad26 vaccine, recombinant Tonya Lue [facility] 06-08-2020 SARS-CoV-2 (COVID-19 ) mRNA-1273 vaccine Tonya Lue [facility] 05-27-2020 SARS-CoV-2 (COVID-19 ) Ad26 vaccine, recombinant Tonya Lue [facility] 02-01-2020 influenza virus vacc ine, unspecified formulation Tonya Lue [facility] 12-27-2018 influenza virus vacc ine, unspecified formulation Tonya Lue [facility] 11-08-2017 pneumococcal polysaccharide vaccine, 23 valent Tonya Lue [facility] 11-25-2016 influenza virus vacc ine, unspecified formulation Tonya Lue [facility] 01-20-2016 influenza virus vacc ine, unspecified formulation Tonya Lue [facility] 02-08-2015 tetanus toxoid, redu herbert diphtheria toxoid, and acellular pertussis vaccine, adsorbed Tonya Lue [facility] Payers Date Payer Category Payer Self-pay [id number] 1959 Medicare [id number] 2.1 [id number] 1959 Unknown [id number] 2.1 [id number]. 1950 Unknown [id number] 2.16.84 0.1.611281.3.579.2.593 1950 Unknown [id number] 2.16.84 0.1.663508.3.579.2.593 1950 Unknown [id number] 2.16.84 0.1.176771.3.579.2.1259 1950 Unknown [id number] 2.16.84 0.1.811252.3.579.2.1259 1950 Unknown [id number] 2.16.84 0.1.679090.3.579.2.1259 1950 Unknown [id number] 2.16.84 0.1.967230.3.579.2.1259 1950 Unknown [id number] 2.16.840 .1.434069.3.579.2.1259 1950 Unknown [id number] 2.16.8 40.1.343162.3.579.2.727 1950 Unknown [id number] 2.16.8 40.1.067928.3.579.2.727 1950 Unknown [id number] 2.16.8 40.1.047690.3.579.2.727 Unknown [employer] BC/BS [id number] Unknown [id number] 2.16.8 40.1.139171.3.579.2.531 Unknown [id number] 2.16.8 40.1.484009.3.579.2.531 Unknown [id number] 2.16.8 40.1.142957.3.579.2.531 Unknown [id number] 2.16.8 40.1.232484.3.579.2.531 Social History Date Type Detail Facility Sex Assigned At [facility] Start: 09-02-2022 Tobacco smoking status Light t obacco smoker (finding) [facility] Tobacco smoking status Smoker (finding) [facility] Tobacco smoking status Never [facility] Start: 1950 Sex Assigned At Female F [facility] Start: 09-03-2023 Tobacco smoking status Heavy t obacco smoker (finding) [facility] Functional Status Date Assessment Result Facility 09-03-2023 Functional Status N/A [facility] 09-02-2022 Functional Status N/A [facility] Hospital Discharge instructions 09-03-2023 Note Date & Type [...] require a prescription. You can also purchase dasr-znl-uwemotu medicines. Medicines may have nicotine in them [...] and encouragement. Call telephone quitlines, such as 1-340-SVSE-NOW, reach out to support groups, or work [...] provider. Document Revised: 03/06/2022 Document Reviewed: 03/06/2022 [employer] Patient Education 2022 [employer]. 09/03/2023 14:05:48 Intravenous Pyelogram Intravenous Pyelogram An [...] including vitamins, herbs, eye drops, creams, and nwdn-tqh-kquvrfi medicines. Any problems you or family members [...] The feeling will not last long. A final operations technician will take X-rays. To make the [...] out the dye in your body. Take mkga-cws-ndweezf and prescription medicines only as told by [...] you are taking. During the procedure, a final operations technician will insert an IV into one [...] provider. Document Revised: 11/26/2021 Document Reviewed: 04/19/2019 [employer] Patient Education 2022 [employer]. Follow Up Care 06/23/2023 08:39:30 With:Gregor LUIS, KENNEDY Whaley, URO Address: When: Unknown [facility] Evaluation note 05-07-2023 Note Date & Type [...] understanding and is agreeable to treatment plan. [email or web address] Other Hospital Discharge instructions 09-02-2022 Note Date [...] include: ?8 oz (237 mL) of milk, vnydxiz-mnbcssoulgjf-qjhnr milk, and calcium-fortifiedfruit juice. Calcium-fortified means that [...] ?Spinach (cooked), rhubarb, beets, sweet potatoes, and Slovenian chard. ?Peanuts. ?Potato chips, khmer fries, and baked potatoes with skin on. ?Nuts and nut products. ?Chocolate. If you regularly take a diuretic medicine, make sure to eat at least 1 or 2 servings of fruits or vegetables that are high in potassium each day. These include: ?Avocado. ?Banana. ?[place], prune, carrot, or tomato juice. ?Baked potato. [...] magnesium, fish oil, or vitamin B6. Take zoyf-gut-froquiv and prescription medicines only as told by [...] Casseroles. Pizza. Lasagna. Frozen meals. Potato chips. Burmese fries. The items listed above may not [...] provider. Document Revised: 11/24/2021 Document Reviewed: 11/24/2021 [employer] Patient Education 2022 [employer]. Follow Up Care 03/04/2021 10:12:25 With:Gregor LUIS, KENNEDY Whaley, URO Address: When: Unknown [facility] Evaluation note 10-07-2021 Note Date & [...] R30.0) Sep, Hematuria, unspecified (ICD-10 - R31.9) [email or web address] Other Evaluation + Plan note Note Date & Type Note Facility Evaluation + Plan note No data available for this section [facility] Evaluation note Note Date & Type Note Facility Evaluation note No assessment information availa [facility] Work Phone: History general Narrative - Reported [...] Hysterectomy Hospitalization History See past surgical hx [email or web address] Other Progress note Note Date & Type Note Facility Progress note No data available for this section [facility] Summary Purpose Family History No Family [...] section and content) DATE CREATED AUTHOR 04/18/2021 [facility] d[facility] Specialist DATE CREATED AUTHOR AUTHOR'S ORGANIZ ATION 09/07/2022 [facility] DATE CREATED AUTHOR AUTHOR'S ORGANIZ ATION 08/21/2023 [facility] DATE CREATED AUTHOR AUTHOR'S ORGANIZ ATION 08/24/2023 [facility] Specialists EPIC DATE CREATED AUTHOR AUTHOR'S ORGANIZ ATION 09/24/2023 [facility] REASON FOR VISIT (unrecogniz ed section [...] Dates Mike Genao DO Primary Care Provider, Marilyn jennings Active Goals (unrecognized section and content) [...] BE BASED ON THE PRIMARY CLINICAL RECORDS. [facility]. provides no warranty or guarantee of the accuracy or completeness of information in this document.
[2023-10-12 08:22] LABS: Basophils Absolute Auto 0.1 10^3/uL (0.0-0.1); Basophils Percent Auto 1.2 % (0.2-2.0); Eosinophils Absolute Auto 0.1 10^3/uL (0.0-0.7); Eosinophils Percent Auto 2.6 % (0.9-7.0); Hematocrit 36.3 % (36.0-48.0); Hemoglobin 10.8 g/dL (12.0-16.0); Immature Granulocytes Abs Auto 0.01 10^3/uL (0.00-0.03); Immature Granulocytes Pct Auto 0.2 % (0.0-0.5); Lymphocytes Absolute Auto 1.4 10^3/uL (1.2-3.8); Lymphocytes Percent Auto 27.4 % (20.5-60.0); Mean Corpuscular HGB Conc 29.8 g/dL (29.9-35.2); Mean Corpuscular Hemoglobin 22.8 pg (26.7-34.0); Mean Corpuscular Volume 76.7 fL (81.0-99.0); Monocytes Absolute Auto 0.7 10^3/uL (0.3-0.8); Monocytes Percent Auto 14.1 % (1.7-12.0); Neutrophils Absolute Auto 2.7 10^3/uL (1.4-6.5); Neutrophils Percent Auto 54.5 % (43.0-75.0); Platelet Count 175 10^3/uL (150-450); Red Blood Count 4.73 10^6/uL (4.20-5.40); Red Cell Distribution Width 17.4 % (11.0-15.0)
[2023-10-12 08:59] LABS: Percent Iron Saturation 5.4 %
[2023-10-12 09:06] LABS: Alanine Aminotransferase 26 U/L (14-59); Albumin Globulin Ratio 0.7; Alkaline Phosphatase 128 U/L (46-116); Anion Gap 8.8; Aspartate Amino Transferase 34 U/L (15-37); BUN Creatinine Ratio 13.2; Bilirubin Total 0.5 mg/dL (0.2-1.0); Calcium 8.5 mg/dL (8.5-10.1); Carbon Dioxide 29.2 mmol/L (21.0-32.0); Chloride 106 mmol/L (98-107); Chol HDL Ratio 3.1; Cholesterol 117 mg/dL (<=200); Estimated GFR (African America >60 (>=60); Estimated GFR (Non-African Ame >60 (>=60); Globulin 4.2 g/dL; Glucose 85 mg/dL (74-106); HDL Cholesterol 38 mg/dL (40-60); Sodium 140 mmol/L (136-145); Total Protein 7.2 g/dL (6.4-8.2); Triglycerides 72 mg/dL (<=150); VLDL CHOLESTEROL 14.4 mg/dL
== END 2023-10-12 08:01 | disposition home or self-care (01) ==
LOC: LAB 08:02
PROVIDERS: PCP Internal Medicine; Visit Provider Internal Medicine
DX: I70.0 Atherosclerosis of aorta (principal); E61.1 Iron deficiency; E78.00 Pure hypercholesterolemia, unspecified; E53.8 Deficiency of other specified B group vitamins; G63 Polyneuropathy in diseases classified elsewhere; R79.89 Other specified abnormal findings of blood chemistry; E55.9 Vitamin D deficiency, unspecified
CPT/HCPCS: 36415; 80053; 80061; 82306; 82607; 82728; 83540; 83550; 85025

== ENCOUNTER 2023-12-22 04:38 | Emergency (ER) | payer MEDICARE, SELFPAY ==
[2023-12-22] VITALS (17 sets, daily range): BP systolic 156–158; BP diastolic 69–70; PULSE 86–111; TEMP 37.4–37.7; O2SAT 94–96; BMI 28.2
--- NOTE | 2023-12-22 05:03 | ECG_ITS ---
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
--- NOTE | 2023-12-22 05:04 | XR_ITS ---
The [address] [address] Patient Name: TORIE ERVIN MRN: [id number] date: 1950 Sex: F Assigned Patient Location: ER Current Patient Location: ER Accession/Order Number: [id number] Exam Date: 12/22/2023 05:53 Report Date: 12/22/2023 06:07 At the request of: ORIANA DELGADO Procedure: XR chest 1V EXAMINATION: XR chest 1V HISTORY: CP COMPARISON: 07/01/2021 TECHNIQUE: AP portable FINDINGS: LUNGS: No significant pulmonary parenchymal abnormalities. VASCULATURE: No increased pulmonary vasculature. PLEURA: No pneumothorax, effusion, or pleural thickening. CARDIAC: No cardiomegaly or cardiac silhouette abnormality. MEDIASTINUM: No visible mass or adenopathy. BONES: No fracture or visible bone lesion. OTHER: Negative. XR/XR chest 1V IMPRESSION: No acute cardiopulmonary process Electronically authenticated by: CATINA GAYLE Date: 12/22/2023 06:07
--- NOTE | 2023-12-22 05:05 | ED.CHESTPAI1 ---
HPI - Chest Pain General Chief Complaint: Chest Pain Stated Complaint: CHESTPAIN Time Seen by Provider: 12/22/23 04:46 Source: patient Mode of arrival: walk-in Limitations: no limitations History of Present Illness HPI narrative: 73-year-old female presents to the emergency department for stinging in her chest and her back. It began about 1:00 this morning when she was asleep, 4 hours ago. She thinks she might have bronchitis. She has been coughing a bit and it has been nonproductive. No fever or trauma. She has no history of heart disease. Related Data Home Medications ?Medication ?Instructions ?Recorded ?Confirmed alprazolam 0.5 mg tablet 0.25 mg PO BID PRN anxiety 10/28/22 12/22/23 mirtazapine 15 mg tablet 15 mg PO BEDTIME 10/28/22 12/22/23 hydroxyzine pamoate 50 mg capsule 50 mg PO Q8H PRN anxiety 05/10/23 12/22/23 Allergies Allergy/AdvReac Type Severity Reaction Status Date / Time codeine Allergy Intermediate Gastrointestinal Verified 12/22/23 04:52 Upset Review of Systems ROS Narrative A ten point review of systems is negative except as noted above. PFSH PFSH Social History Smoking status: Current every day smoker Exam Narrative Exam Narrative: Nurses note and vital signs reviewed and patient is not hypoxic. General: The patient appears well and in no apparent distress. Patient is resting comfortably on cart. Skin: Warm, dry, no pallor noted. There is no rash noted. Head: Normocephalic, atraumatic Eye: Normal conjunctiva, no drainage Ears, Nose, Mouth, and Throat: oral mucosa is moist. Nares patent. Cardiovascular: Regular Rate and Rhythm Respiratory: Patient is in no distress, no accessory muscle use, lungs are clear to auscultation, no wheezing, rales or rhonchi Back: non-tender GI: Soft and nontender Musculoskeletal: The patient has no evidence of calf tenderness, no pitting edema, symmetrical pulses noted bilaterally Neurological: A&O, normal speech Psychiatric: Cooperative Constitutional Vital Signs, click to edit/add: Last Vital Signs Temp 99.9 F 12/22/23 04:42 Pulse 108 H 12/22/23 04:42 Resp 20 12/22/23 04:42 BP 158/70 H 12/22/23 04:42 Pulse Ox 95 12/22/23 04:42 O2 Del Method Room Air 12/22/23 04:42 Course Vital Signs Vital signs: Vital Signs Temperature 99.9 F 12/22/23 04:42 Pulse Rate 108 H 12/22/23 04:42 Respiratory Rate 20 12/22/23 04:42 Blood Pressure 158/70 H 12/22/23 04:42 Pulse Oximetry 95 12/22/23 04:42 Oxygen Delivery Method Room Air 12/22/23 04:42 Temperature 99.9 F 12/22/23 04:42 Pulse Rate 108 H 12/22/23 04:42 Respiratory Rate 20 12/22/23 04:42 Blood Pressure 158/70 H 12/22/23 04:42 Pulse Oximetry 95 12/22/23 04:42 Oxygen Delivery Method Room Air 12/22/23 04:42 MDM - Chest Pain MDM Narrative Medical decision making narrative: Initial troponin is negative. Repeat troponin is ordered for 7 AM and the patient is signed out to Dr. Bell at change of shift. Chest x-ray and COVID are negative. Differential Diagnosis Differential diagnosis: Likely pneumothorax, atypical chest pain, st elevation myocardial infarction, costochondritis and chest pain Lab Data Attestation: I reviewed the patient's lab results. Labs: Lab Results 12/22/23 Range/Units 04:58 WBC 5.1 (4.0-11.0) 10^3/uL RBC 4.58 (4.20-5.40) 10^6/uL Hgb 10.4 L (12.0-16.0) g/dL Hct 34.2 L (36.0-48.0) % MCV 74.7 L (81.0-99.0) fL MCH 22.7 L (26.7-34.0) pg MCHC 30.4 (29.9-35.2) g/dL RDW 16.2 H (11.0-15.0) % Plt Count 159 (150-450) 10^3/uL MPV 10.4 (9.5-13.5) fL Sodium 135 L (136-145) mmol/L Potassium 3.1 L (3.5-5.1) mmol/L Chloride 101 (98-107) mmol/L Carbon Dioxide 28.7 (21.0-32.0) mmol/L Anion Gap 8.4 BUN 8.0 (7.0-18.0) mg/dL Creatinine 0.70 (0.55-1.02) mg/dL Est GFR ( Amer) >60 (>=60) Est GFR (Non-Af Amer) >60 (>=60) BUN/Creatinine Ratio 11.4 Glucose 117 H (74-106) mg/dL Calcium 8.5 (8.5-10.1) mg/dL Troponin I High Sens 7.6 (4.0-51.3) pg/mL SARS-CoV-2 Ag (CV2AG) Negative (NEGATIVE) Imaging Data Chest x-ray: Radiologist's impression: ITS Impressions Chest X-Ray 12/22/23 05:04 IMPRESSION: No acute cardiopulmonary process Electronically authenticated by: CATINA GAYLE Date: 12/22/2023 06:07 ECG Data Attestation: I personally reviewed and interpreted this ECG as follows: (EKG on my interpretation shows sinus rhythm with a rate of 104 and no acute change.) Heart Score History: Slightly/Non-Suspicious ECG: Normal Age: >65 years Risk Factors: 1 or 2 Risk Factors Troponin: <Normal Limit Total Heart Score Recommendations & Risks:: 3 Discharge Plan Discharge Patient Disposition: Still a Patient
--- OUTSIDE RECORDS SUMMARY | 2023-12-22 05:20 | XMS_ITS | CCD ---
Author Organization [facility] Care Team Providers Care Stone Gluer Name Role Phone Heather Nunez Unavailable MIKE GENAO Primary Care Physician [phone] MISC, DR ATWOOD Primary Care Unavailable ORIANA DELGADO Attending Unavailable ORIANA DELGADO Consulting Unavailable ORIANA DELGADO Admitting Unavailable FRANCIS HOLDEN Admitting Unavailable MISC, DR ATWOOD Primary Care Unavailable FRANCIS HOLDEN Attending Unavailable FRANCIS HOLDEN Consulting Unavailable TATIANNA Voss Attending Provider DO Mike Genao Primary Care Provider [phone] DO Mike Genao Attending Provider [phone] Milla Skinner Unavailable Mike Genao Admitting Unavailable Mike Genao Attending Unavailable Mike Genao Primary Care Unavailable Ric Kerr Admitting Unavailab Ric Hernandez Attending Unavailab Mike Fajardo Primary Care Unavailable Mike Genao Admitting Unavailable Mike Genao Attending Unavailable Mike Genao Referring Unavailable Mike Genao Primary Care Unavailable Ritchie Voss Admitting Unavail able Ritchie Voss Attending Unavail able Mike Genao Primary Care Unavailable Tonya Bundy Attending Unavailable Tonya Bundy Attending Unavailable Tonya Bundy Attending Unavailable MIKE GENAO Attending Unavailable MIKE GENAO Referring Unavailable QASIM CHAUDHRY Attending Unavailable MIKE GENAO Referring Unavailable MIKE GENAO Referring Unavailable RITCHIE FERNANDEZ Attending Unavailable QASIM CHAUDHRY Referring Unavailable MIKE GENAO Attending Unavailable MIKE GENAO Referring Unavailable RITCHIE FERNANDEZ Attending Unavailable RITCHIE FERNANDEZ Referring Unavailable Allergies Allergy Classification Reported Allergen(s) Allergy Type Date of Onset Reaction(s) Facility (7 sources) Codeine; Translations: [codeine] Drug Allergy stomach upset, unknown [facility] (1 source) Codeine Drug Allergy [address] [facility] Repository (1 source) Codeine Drug Allergy 4 [facility] Repository Medications Current Medications Medication Drug Class(es) [...] 03/01/19 Status: [facility] hours hydrOXYzine Pamoate 50 MG [...] 10-07-2021 Episodic Other aftercare (1 source) Other alf (current) drug therapy; Translations: [OTH GROUP HOME CURRENT DRUG THERAPY] Onset: 12-09-2021 Episodic Urinary tract infections (3 sources) Urinary tract infection, site not specified Onset: 10-07-2021 Resolved: 10-07-2021 Episodic Results Test Name Value Interpretation Reference Range Facility CT LUNG SCREENING LOW DOSEon 12-01-2023 CT LUNG SCREENING LOW DOSE This is a summary report. The complete report is available in the patient's medical record. If you cannot access the medical record, please contact the sending organization for a detailed fax or copy. CT LUNG SCREENING LOW DOSE CLINICAL HISTORY: lung cancer screening. 55 pack years. TECHNIQUE: Spiral low dose CT acquisition of the chest from the thoracic inlet to the upper abdomen without contrast for lung screening. All CT scans at this facility use dose modulation, iterative reconstruction, and/or weight based dosing when appropriate to reduce radiation dose to as low as reasonably achievable. COMPARISON: CT 09/25/2019. RESULT: Lung parenchyma and pleura: Central airways appear patent with mild diffuse bronchial wall thickening. Emphysematous changes, similar to prior. Areas of peripheral subpleural scarring, chronic, similar to prior. Other areas of probable nodular scarring, unchanged from prior, benign. No suspicious lung nodules. No pleural effusion or pneumothorax. Thoracic inlet, heart, and mediastinum: Visualized thyroid unremarkable. No axillary, mediastinal, or hilar lymphadenopathy. Mild thoracic aorta atherosclerotic calcifications without aneurysm. Normal pulmonary size artery. Normal heart size. Diffuse coronary artery calcifications. No pericardial effusion or thickening. Esophagus nondilated. Bones: No acute osseous findings. No destructive osseous lesions. DISH. Degenerative changes. Thoracic kyphosis. Underlying decreased bone marrow density. Soft tissues: Unremarkable. Upper abdomen: No acute abnormality in the imaged upper abdomen. Spleen borderline enlarged, grossly similar to prior. IMPRESSION: Lung-RADS: LUNGRADS 2 - Benign Follow-Up Recommendation: LDCT 1 Year ELECTRONICALLY SIGNED BY: Jim Jain MD Normal Not Available [facility] 09-06-2023 Screens [id number] Normal [facility] Ambulatory Visit Summaryon 0 09-03-2023 Ambulatory Visit [...] away ? (more content not included)... Normal [facility] Patient Educationon 09-03-19 24 Patient Education Pulmonary [...] require a prescription. You can also purchase [id number] medicines. Medicines may have nicotine in them [...] and encouragement. Call telephone quitlines, such as 5-250-DOLI-NOW, reach out to support groups, or work [...] quit smoki (more content not included)... Normal [facility] Urology Office/Clinic Noteon 09-03-2023 Urology Office/Clinic Note Chief Complaint F/U with Renal scan HPI Staff Pt here today for a F/U with Renal scan @ [facility] on 06/21/23 Previous DX: frequency of [...] With Wh (more content not included)... Normal [facility] Comment on above: Result Comment: Elec tronically Signed By: Gregor LUIS, Tonya Vo\.br\Date and Time Signed: 09/03/23 14:51 EDT\.br\Electronically Co-Signed By: Jackie Zarate\.br\Date and Time Co-Signed: 09/03/23 14:43 EDT\.br\Electronically Co-Signed By: Jackie Zarate\.br\Date and Time Co-Signed: 09/03/23 14:46 EDT RAD - Nuclear Medicine Repor ton 06-22-2023 RAD - Nuclear Medicine Report [id number] Normal [facility] XR LUMBAR SPINE 2-3 VIEWSon 05-27-2023 [...] MD Normal Not Available [facility] echo transthoracicon [facility] echo transthoracic [facility] Main [place] [address] [place] [address] Echocardiogram Signed Patient: Christal Ervin MR#: [id number] : 1950 Acct:[id number] Age/Sex: 72 / F ADM Date: 04/08/23 Loc: Room: Type: [facility] Attending Dr: Mike Genao DO Ordering Provider: Mike Genao DO Date of Service: 04/08/23/ [facility] echo transthoracic: PALPITATIONS Copies to: MD [...] Martin Mcnulty MD 04/08/23 1646 Normal [facility] CA holter monitor recordingo n 03-11-2023 CA holter monitor recording [facility] [place] [address] Holter Monitor Report Signed Patient: Christal Ervin MR#: [id number] : 1950 Acct:[id number] Age/Sex: 72 / F ADM Date: 03/08/23 Loc: Room: Type: [facility] Attending Dr: Ritchie CAMPUZANO Copies to: Ritchie Hauser MD Ordering Provider: Ritchie CAMPUZANO Date of Service: 03/08/23 AUGUSTINE/RI holter monitor recording: i70.91, h81.4 ORDERING: TATIANNA [...] 03/11/232221 Dictated By: Telly Hauser MD 03/11/23 172 Signed By: 03/13/23 1239 Normal [facility] Patient Letter FTon 2022 Patient Letter [facility] [place] 09, [address] [id number] : 1950 Sent via certified and regular [...] Sincerely, Tonya Bundy M.D. [facility] [address] [place] [address] Normal [facility] US KIDNEYSon 08-26-2022 US KIDNEYS EXAM: US [...] CATINA KHANNA Date: 2022-08-26 10:33 Normal [facility] CBC AUTO DIFFon 12-07-2021 BASO # 0.0 103/ul Normal 0.0-0.1 [facility] Comment on above: Performed By: #### C BC #### [facility] [address] [place] [address] Dr. Senait Pisano Basophils/100 WBC (Bld) 1.0 % Normal 0.2-2.0 [facility] Comment on above: Performed By: #### C BC #### [facility] [address] [place] [address] Dr. Senait Pisano EO # 0.1 103/ul Normal 0.0-0.7 [facility] Comment on above: Performed By: #### C BC #### [facility] [address] [place] [address] Dr. Senait Pisano Eosinophils/100 WBC (Bld) 2.0 % Normal 0.9-7.0 [facility] Comment on above: Performed By: #### C BC #### [facility] [address] [place] [address] Dr. Senait Pisano Erythrocyte distribution width (RBC) [Ratio] 15.7 % Critically high 11.0-15.0 [facility] Comment on above: Performed By: #### C BC #### [facility] [address] [place] [address] Dr. Senait Pisano Hematocrit (Bld) [Volume fraction] 38.8 % Normal 36.0-48.0 [facility] Comment on above: Performed By: #### C BC #### [facility] [address] [place] [address] Dr. Senait Pisano Hemoglobin (Bld) [Mass/Vol] 12.0 g/dL Normal 12.0-16.0 [facility] Comment on above: Performed By: #### C BC #### [facility] [address] [place] [address] Dr. Senait Pisano IG # 0.01 10e3/ul Normal 0.00-0.03 [facility] Comment on above: Performed By: #### C BC #### [facility] [address] [place] [address] Dr. Senait Pisano IG % 0.2 % Normal 0.0-0.5 [facility] Comment on above: Performed By: #### C BC #### [facility] [address] [place] [address] Dr. Senait Pisano LYMPH # 0.9 103/ul Critically low 1.2-3.8 [facility] Comment on above: Performed By: #### C BC #### [facility] [address] [place] [address] Dr. Senait Pisano Lymphocytes/100 WBC (Bld) 20.8 % Normal 20.5-60.0 [facility] Comment on above: Performed By: #### C BC #### [facility] [address] [place] [address] Dr. Senait Pisano MANUAL DIFF REQ NO Normal [facility] Comment on above: Performed By: #### C BC #### [facility] [address] [place] [address] Dr. Senait Pisano MCH (RBC) [Entitic mass] 23.6 pg Critically low 26.7-34.0 [facility] Comment on above: Performed By: #### C BC #### [facility] [address] [place] [address] Dr. Senait Pisano MCHC (RBC) [Mass/Vol] 30.9 g/dL Normal 29.9-35.[address] [facility] Comment on above: Performed By: #### C BC #### [facility] [address] [address] [address] Senait Pisano MCV (RBC) [Entitic vol] 76.4 fL Critically low 81.0-99.0 [facility] Comment on above: Performed By: #### C BC #### [facility] [address] [address] [address] Senait Pisano MONO # 0.5 103/ul Normal 0.3-0.8 [facility] Comment on above: Performed By: #### C BC #### [facility] [address] [address] [address] Senait Pisano Monocytes/100 WBC (Bld) 13.2 % Critically high 1.7-12.0 [facility] Comment on above: Performed By: #### C BC #### [facility] [address] [address] [address] Senait Pisano NEUT # 2.6 103/ul Normal 1.4-6.5 [facility] Comment on above: Performed By: #### C BC #### [facility] [address] [address] [address] Senait Pisano Neutrophils/100 WBC (Bld) 62.8 % Normal 43.0-75.0 [facility] Comment on above: Performed By: #### C BC #### [facility] [address] [address] [address] Senait Pisano Platelet mean volume (Bld) [Entitic vol] 10.0 fL Normal 9.5-13.5 [facility] Comment on above: Performed By: #### C BC #### [facility] [address] [address] [address] Senait Pisano PLT 177 103/ul Normal 150-[address] [facility] Comment on above: Performed By: #### C BC #### [facility] [address] [address] [address] Senait Pisano RBC 5.08 106/ul Normal 4.20-5.[address] [facility] Comment on above: Performed By: #### C BC #### [facility] [address] [address] [address] Senait Pisano WBC 4.1 103/ul Normal 4.0-11.0 [facility] Comment on above: Performed By: #### C BC #### [facility] [address] [address] [address] Senait Pisano PROF CHEM 8 (BAS METB)on Anion gap [Moles/Vol] 8.3 mmol/L Normal [facility] Comment on above: Performed By: #### B MP #### [facility] [address] [place] [address] Dr. Senait Pisano Calcium [Mass/Vol] 8.0 mg/dL Critically low 8.5-10.1 [facility] Comment on above: Performed By: #### B MP #### [facility] [address] [place] [address] Dr. Senait Pisano Chloride [Moles/Vol] 105 mmol/L Normal 98-107 [facility] Comment on above: Performed By: #### B MP #### [facility] [address] [place] [address] Dr. Senait Pisano CO2 [Moles/Vol] 28.6 mmol/L Normal 21.0-32.0 [facility] Comment on above: Performed By: #### B MP #### [facility] [address] [place] [address] Dr. Senait Pisano Creatinine [Mass/Vol] 0.68 mg/dL Normal 0.55-1.02 [facility] Comment on above: Performed By: #### B MP #### [facility] [address] [place] [address] Dr. Senait Pisano EGFR-AF TURKMEN >60 Normal >=60 [facility] Comment on above: Performed By: #### B MP #### [facility] [address] [place] [address] Dr. Senait Pisano EGFR-NON AF TURKMEN >60 Normal >=[address] [facility] Comment on above: Performed By: #### B MP #### [facility] [address] [address] [address] Senait Pisano Glucose [Mass/Vol] 192 mg/dL Critically high 74-106 [place] Comment on above: Performed By: #### B MP #### [facility] [address] [address] [address] Senait Pisano Potassium [Moles/Vol] 3.9 mmol/L Normal 3.5-5.1 [facility] Comment on above: Performed By: #### B MP #### [facility] [address] [address] [address] Senait Pisano Sodium [Moles/Vol] 138 mmol/L Normal 136-145 [facility] Comment on above: Performed By: #### B MP #### [facility] [address] [address] [address] Senait Pisano Urea nitrogen [Mass/Vol] 9.0 mg/dL Normal 7.0-18.0 [facility] Comment on above: Performed By: #### B MP #### [facility] [address] [address] [address] Senait Pisano Urea nitrogen/Creatinine [Mass ratio] 13.2 mg/mg Normal [facility] Comment on above: Performed By: #### B MP #### [facility] [address] [address] [address] Senait Pisano Quick Fluon 10-07-2021 FLUAV Ab CF (S) [Titer] Negative [employer] Other FLUBV Ab CF (S) [Titer] Negative [employer] Other Urinalysis - AUTOMATEDon Appearance (U) CLOUDY [employer] Other Bilirubin Ql (U) Negative [employer] Other Color (U) YELLOW [employer] Other Glucose Ql (U) Negative [employer] Other Hemoglobin Ql (U) MODERATE [employer] Other Ketones Ql (U) Negative [employer] Other Leukocyte esterase Test strip Ql (U) LARGE [employer] Other Nitrite Ql (U) Positive [employer] Other pH (U) 5.5 [pH] [employer] Other Protein Ql (U) 30 [employer] Other Specific gravity (U) [Rel density] <1.005 [employer] Other Urobilinogen (U) [Mass/Vol] 0.2 mg/dL [employer] Other Urinalysis - AUTOMATED [employer] Other Urine Cultureon 10-07-2021 Urine Culture >100,000 [employer] Other Urine Culture <16 Susceptible [employer] Other Urine Culture >16 Resistant [employer] Other Urine Culture <4 Susceptible [employer] Other Urine Culture 4 Susceptible [employer] Other Urine Culture <2 Susceptible [employer] Other Urine Culture <1 Susceptible [employer] Other Urine Culture <0.5 Susceptible [employer] Other Urine Culture <32 Susceptible [employer] Other Urine Culture <2/38 Susceptible [employer] Other Complete Blood Count with Au to Diffon 04-17-2021 Basophils (Bld) [#/Vol] 0.08 10*3/uL Normal 0.00-0.20 [facility] [employer] Comment on above: Performed By: #### C BCAD, CMP #### [facility] [address] [place], [place] [id number] Basophils/100 WBC (Bld) 1.4 % Normal [facility] [employer] Comment on above: Performed By: #### C IRVING, CMP #### [facility] [address] [place], [place] [phone] Eosinophils (Bld) [#/Vol] 0.13 10*3/uL Normal 0.02-0.50 [facility] [employer] Comment on above: Performed By: #### C IRVING, CMP #### [facility] [address] [place], [place] [id number] Eosinophils/100 WBC (Bld) 2.3 % Normal [facility] [employer] Comment on above: Performed By: #### Shalom VILLATORO, CMP #### [facility] [address] [place], [place] [phone] Erythrocyte distribution width (RBC) [Ratio] 15.6 % High 11.0-15.0 [facility] [employer] Comment on above: Performed By: #### C IRVING, CMP #### [facility] [address] [place], [place] [phone] Hematocrit (Bld) [Volume fraction] 42.8 % Normal 35.0-47.0 [facility] [employer] Comment on above: Performed By: #### C IRVING, CMP #### [facility] [address] [place], [place] [id number] Hemoglobin (Bld) [Mass/Vol] 13.3 g/dL Normal 11.6-15.5 [facility] [employer] Comment on above: Performed By: #### C BCALoly, CMP #### [facility] [address] [place], [place] [phone] Lymphocytes (Bld) [#/Vol] 1.4 10*3/uL Normal 0.9-3.9 [facility] [employer] Comment on above: Performed By: #### C BCALoly, CMP #### [facility] [address] [place], [place] [phone] Lymphocytes/100 WBC (Bld) 25.0 % Normal [facility] [employer] Comment on above: Performed By: #### C IRVING, CMP #### [facility] [address] [place], [place] [phone] MCH (RBC) [Entitic mass] 23.7 pg Low 27.0-33.0 [facility] Specialist Comment on above: Performed By: #### Shalom VILLATORO, CMP #### [facility] [address] [place], [place] [phone] MCHC (RBC) [Mass/Vol] 31.1 g/dL Low 32.0-36.0 [facility] Specialist Comment on above: Performed By: #### C IRVING, CMP #### [facility] [address] [place], [place] [id number] MCV (RBC) [Entitic vol] 76 fL Low 80-100 [facility] Specialist Comment on above: Performed By: #### C IRVING, CMP #### [facility] [address] [place], [place] [phone] Monocytes (Bld) [#/Vol] 0.8 10*3/uL Normal 0.2-0.9 [facility] Specialist Comment on above: Performed By: #### Shalom VILLATORO, CMP #### [facility] [address] [place], [place] [phone] Monocytes/100 WBC (Bld) 14.3 % Normal [facility] Specialist Comment on above: Performed By: #### C IRVING, CMP #### [facility] [address] [place], [place] [phone] Neutrophils (Bld) [#/Vol] 3.2 10*3/uL Normal 1.5-7.8 [facility] Specialist Comment on above: Performed By: #### C IRVING, CMP #### [facility] [address] [place], [place] [phone] Neutrophils/100 WBC (Bld) 56.5 % Normal [facility] Specialist Comment on above: Performed By: #### C IRVING, CMP #### [facility] [address] [place], [place] [id number] Platelet mean volume (Bld) [Entitic vol] 11.10 fL Normal 7.50-12.50 [facility] Specialist Comment on above: Performed By: #### C IRVING, CMP #### [facility] [address] [place], [place] [id number] Platelets (Bld) [#/Vol] 220 10*3/uL Normal 140-400 [facility] [employer] Comment on above: Performed By: #### C BCAD, CMP #### [facility] [address] [place], [place] [phone] RBC (Bld) [#/Vol] 5.61 10*6/uL High 3.90-5.20 [facility] [employer] Comment on above: Performed By: #### C BCAD, CMP #### [facility] [address] [place], [place] [id number] RDW-SD 42.5 fL Normal 37.0-50.0 [facility] [employer] Comment on above: Performed By: #### C BCAD, CMP #### [facility] [address] [place], [place] [id number] WBC (Bld) [#/Vol] 5.6 10*3/uL Normal 3.8-11.0 [facility] [employer] Comment on above: Performed By: #### C BCAD, CMP #### [facility] [address] [place], [place] [id number] [facility] 04-17-2021 Albumin [Mass/Vol] 4.2 g/dL Normal 3.6-5.1 [facility] [employer] Comment on above: Performed By: #### C BCAD, CMP #### [facility] [address] [place], [place] [id number] Albumin/Globulin [Mass ratio] 1.4 {ratio} Normal 1.0-2.5 [facility] [employer] Comment on above: Performed By: #### C BCAD, CMP #### [facility] [address] [place], [place] [id number] ALP [Catalytic activity/Vol] 138 U/L High 35-119 [facility] [employer] Comment on above: Performed By: #### C BCAD, CMP #### [facility] [address] [place], [place] [id number] ALT [Catalytic activity/Vol] 24 U/L Normal 6-33 [facility] [employer] Comment on above: Result Comment: 02/26 Female reference range changed. Performed By: #### C BCAD, CMP #### [facility] [address] [place], [place] [id number] Anion gap [Moles/Vol] 19 mmol/L Normal 12-20 [facility] Comment on above: Result Comment: Gosia jeffreyive 04/03/2019 reference range changed. Performed By: #### C BCAD, CMP #### [facility] [address] [place], [place] [phone] AST [Catalytic activity/Vol] 30 U/L Normal 9-34 [facility] Comment on above: Performed By: #### C BCAD, CMP #### [facility] [address] [place], [place] [id number] BUN/CREA 20 Ratio Normal 6-22 [facility] Comment on above: Performed By: #### C BCAD, CMP #### [facility] [address] [place], [place] [id number] Calcium [Mass/Vol] 9.0 mg/dL Normal 8.6-10.2 [facility] Comment on above: Performed By: #### C BCAD, CMP #### [facility] [address] [place], [place] [phone] Chloride [Moles/Vol] 103 mmol/L Normal 98-107 [facility] Comment on above: Performed By: #### C BCAD, CMP #### [facility] [address] [place], [place] [id number] CO2 [Moles/Vol] 22 mmol/L Normal 20-31 [facility] Comment on above: Performed By: #### C BCAD, CMP #### [facility] [address] [place], [place] [id number] Creatinine [Mass/Vol] 0.6 mg/dL Normal 0.6-1.4 [facility] Comment on above: Performed By: #### C BCAD, CMP #### [facility] [address] [place], [place] [id number] eGFRAA 111 mL/min/1.73m2 Normal >60 [facility] Comment on above: Performed By: #### C BCAD, CMP #### [facility] [address] [place], [place] [id number] eGFRNAA 92 mL/min/1.73m2 Normal >60 [facility] [employer] Comment on above: Performed By: #### C BCAD, CMP #### [facility] [address] [place], [place] [phone] Globulin (S) [Mass/Vol] 3.0 g/dL Normal 1.9-3.7 [facility] [employer] Operator Comment on above: Performed By: #### C BCAD, CMP #### [facility] [address], [place] [id number] Glucose [Mass/Vol] 113 mg/dL High 65-99 [facility] [employer] Operator Comment on above: Result Comment: For FASTING Glucose --- ADA reference ranges: Normal 65-99 mg/dl Prediabetes 100-125 Diabetes >/= 126 Performed By: #### C BCAD, CMP #### [facility] [address], [place] [id number] Potassium [Moles/Vol] 4.3 mmol/L Normal 3.5-5.5 [facility] [employer] Operator Comment on above: Performed By: #### C BCAD, CMP #### [facility] [address], [place] [id number] Protein [Mass/Vol] 7.2 g/dL Normal 6.1-8.1 [facility] [employer]encil Machine Operator Comment on above: Performed By: #### C BCAD, CMP #### [facility] [address], [place] [phone] Sodium [Moles/Vol] 139 mmol/L Normal 135-146 [facility] Stencil Machine Operator Comment on above: Performed By: #### C BCAD, CMP #### [facility] [address], [place] [id number] TBIL <0.3 Normal [facility] [employer]encil Machine Operator Comment on above: Performed By: #### C BCAD, CMP #### [facility] [address], [place] [phone] Urea nitrogen [Mass/Vol] 13 mg/dL Normal 7-25 [facility] [employer] Operator Comment on above: Performed By: #### C BCAD, CMP #### [facility] [address], [place] [phone] Hemoglobin A1Con 04-17-2021 EAG 119.76 Normal [facility] [employer]encil Machine Operator Comment on above: Performed By: #### A 1C #### [facility] [address], [place] [phone] HbA1c (Bld) [Mass fraction] 5.8 % Normal 4.0-6.0 [facility] [employer] Operator Comment on above: Performed By: #### A 1C #### [facility] [address], [place] [phone] Vital Signs Date Time Vital Sign Value Performing Clinician Facility 09-03-2023 13:52-0400 Blood Pressure Location Tonya Lue [facility] 09-03-2023 13:52-0400 Body temperature 96.44 [degF] Tonya Lue [facility] 09-03-2023 13:52-0400 Diastolic blood pressure 84 mm[Hg] Tonya Lue [facility] 09-03-2023 13:52-0400 Heart rate 78 /min Tonya Lue [facility] 09-03-2023 13:52-0400 Systolic blood pressure 128 mm[Hg] Tonya Lue [facility] 05-07-2023 09:00-0500 Body height 162.56 cm Milla Skinner Other [facility] Other 05-07-2023 09:00-0500 Body mass index (BMI) [Ratio] 28.25 kg/m2 Milla Skinner Other [facility] Other 05-07-2023 09:00-0500 Body temperature 98 [degF] Milla Skinner Other [facility] Other 05-07-2023 09:00-0500 Body weight 74.66 kg Milla Skinner Other [facility] Other 05-07-2023 09:00-0500 Diastolic blood pressure 80 mm[Hg] Milla Skinner Other [facility] Other 05-07-2023 09:00-0500 Respiratory rate 18 /min Milla Skinner Other [facility] Other 05-07-2023 09:00-0500 SaO2% (BldA) [Mass fraction] 98 % Milla Skinner Other [facility] Other 05-07-2023 09:00-0500 Systolic blood pressure 136 mm[Hg] Milla Skinner Other [facility] Other 09-02-2022 10:45-0400 Blood Pressure Location Tonya Lue [facility] 09-02-2022 10:45-0400 Diastolic blood pressure 83 mm[Hg] Tonya Lue [facility] 09-02-2022 10:45-0400 Heart rate 100 /min Tonya Lue [facility] 09-02-2022 10:45-0400 Systolic blood pressure 150 mm[Hg] Tonya Lue [facility] 10-07-2021 10:00-0400 Body height 162.56 cm Heather Nunez Other [facility] Other 10-07-2021 10:00-0400 Body mass index (BMI) [Ratio] 29.01 kg/m2 Heather Nunez Other [facility] Other 10-07-2021 10:00-0400 Body temperature 99.6 [degF] Heather Nunez Other [facility] Other 10-07-2021 10:00-0400 Body weight 76.66 kg Heather Nunez Other [facility] Other 10-07-2021 10:00-0400 SaO2% (BldA) [Mass fraction] 95 % Heather Nunez Other [facility] Other Encounters Encounter Date Encounter Type Care Provider Facility Start: 03-03-2024 ambulatory Tonya Longe Facility:[facility] Start: 12-01-2023 End: 12-01-2023 ambulatory RITCHIE FERNANDEZ Not Available Start: 11-23-2023 End: 11-23-2023 ambulatory RITCHIE FERNANDEZ Not Available Start: 09-08-2023 ambulatory Tonya M. Lue Facility:[facility] Start: 09-03-2023 End: 09-03-2023 ambulatory Tonya M. Lue Facility:[facility] Start: 09-03-2023 End: 09-03-2023 Patient encounter procedure Tonya Bundy [facility] Start: 08-24-2023 End: 08-24-2023 ambulatory MIKE GENAO Not Available Start: 08-19-2023 ambulatory Ric Moreland acility:[facility] Start: 06-01-2023 ambulatory Mike Genao Facility :[facility] Start: 05-27-2023 End: 05-27-2023 ambulatory QASIM CHAUDHRY Not Available Start: 05-07-2023 End: 05-07-2023 ambulatory Milla Skinner Other [facility] [employer] Other Start: 05-07-2023 Office outpatient visit 25 minutes Milla Skinner [facility] Start: 04-19-2023 End: 04-19-2023 ambulatory MIKE ROMEROK Not Available Start: 04-08-2023 End: 04-08-2023 ambulatory Mike Genao Facility:[facility] Start: 04-08-2023 End: 04-08-2023 ambulatory DO Mike Genao Work Phone: [facility] Work Phone: Start: 04-08-2023 End: 04-08-2023 Patient encounter procedure DO Mike Genao Work Phone: [facility] Work Phone: Start: 03-08-2023 End: 03-08-2023 ambulatory Ritchie Voss Facility:[facility] Start: 03-08-2023 End: 03-08-2023 ambulatory DO Mike Genao Work Phone: [facility] Work Phone: Start: 03-08-2023 End: 03-08-2023 Patient encounter procedure DO Mike Genao Work Phone: [facility] Work Phone: Start: 02-23-2023 End: 02-23-2023 ambulatory MIKE GENAO Not Available Start: 09-02-2022 End: 09-02-2022 Patient encounter procedure Tonya Bundy [facility] Start: 08-26-2022 ambulatory FRANCIS HOLDEN Facility :[facility] Start: 12-07-2021 End: 12-07-[address] DOCTOR GOMES Facility:[facility] Start: 10-07-2021 End: 10-07-2021 ambulatory Heather Nunez Other [facility] Other Start: 10-07-2021 Office outpatient visit 15 minutes Heather Nunez [facility] Procedures Date Procedure Procedure [...] Immunizations Immunization Date Immunization Notes Care Provider [facility] 02-25-2022 influenza virus vacc ine, unspecified formulation Tonya Lue [facility] 02-28-2021 SARS-CoV-2 (COVID-19 ) Ad26 vaccine, recombinant Tonya Lue [facility] 02-13-2021 influenza virus vacc ine, unspecified formulation Tonya Lue [facility] 07-06-2020 SARS-CoV-2 (COVID-19 ) mRNA-1273 vaccine Tonya Lue [facility] 06-27-2020 SARS-CoV-2 (COVID-19 ) Ad26 vaccine, recombinant Tonya Lue [facility] 06-08-2020 SARS-CoV-2 (COVID-19 ) mRNA-1273 vaccine Tonya Lue [facility] 05-27-2020 SARS-CoV-2 (COVID-19 ) Ad26 vaccine, recombinant Tonya Bundy [facility] 02-01-2020 influenza virus vacc ine, unspecified formulation Tonya Lue [facility] 12-27-2018 influenza virus vacc ine, unspecified formulation Tonya Lue [facility] 11-08-2017 pneumococcal polysaccharide vaccine, 23 valent Tonya Lue [facility] 11-25-2016 influenza virus vacc ine, unspecified formulation Tonya Lue [facility] 01-20-2016 influenza virus vacc ine, unspecified formulation Tonya Lue [facility] 02-08-2015 tetanus toxoid, redu herbert diphtheria toxoid, and acellular pertussis vaccine, adsorbed Tonya Lue [facility] Payers Date Payer Category Payer Self-pay [id number] 1959 Medicare [id number] 2.1 [id number] 1959 Unknown [id number] 2.1 [id number] 1950 Unknown [id number] 2.16.84 0.1.235541.3.579.2.593 1950 Unknown [id number] 2.16.84 0.1.856081.3.579.2.593 1950 Unknown [id number] 2.16.8 40.1.824334.3.579.2.727 1950 Unknown [id number] 2.16.8 40.1.439574.3.579.2.727 1950 Unknown [id number] 2.16.8 40.1.020740.3.579.2.727 1950 Unknown [id number] 2.16.84 0.1.691692.3.579.2.1259 1950 Unknown [id number] 2.16.84 0.1.026893.3.579.2.1259 1950 Unknown [id number] 2.16.84 0.1.748278.3.579.2.1259 1950 Unknown [id number] 2.16.84 0.1.377342.3.579.2.1259 1950 Unknown [id number] 2.16.84 0.1.549874.3.579.2.1259 1950 Unknown [id number] 2.16.84 0.1.252545.3.579.2.1259 1950 Unknown [id number] 2.16.840 .1.556594.3.579.2.1259 Unknown Kristin BC/BS [id number] Unknown [id number] 2.16.8 40.1.954598.3.579.2.531 Unknown [id number] 2.16.8 40.1.880007.3.579.2.531 Unknown [id number] 2.16.8 40.1.590809.3.579.2.531 Unknown [id number] 2.16.8 40.1.089124.3.579.2.531 Social History Date Type Detail Facility Sex Assigned At [facility] Start: 09-02-2022 Tobacco smoking status Light t obacco smoker (finding) [facility] Tobacco smoking status Smoker (finding) [facility] Tobacco smoking status Never [facility] Start: 1950 Sex Assigned At Female [facility] Start: 09-03-2023 Tobacco smoking status Heavy t obacco smoker (finding) [facility] Functional Status Date Assessment Result Facility 09-03-2023 Functional Status N/A [facility] 09-02-2022 Functional Status N/A [facility] Hospital Discharge instructions 09-03-2023 Note Date [...] require a prescription. You can also purchase uqpj-ibr-izuordt medicines. Medicines may have nicotine in them [...] and encouragement. Call telephone quitlines, such as 1-989-XWYC-NOW, reach out to support groups, or work [...] provider. Document Revised: 03/06/2022 Document Reviewed: 03/06/2022 [facility] Patient Education 2022 [employer]. 09/03/2023 14:05:48 Intravenous Pyelogram Intravenous Pyelogram An [...] including vitamins, herbs, eye drops, creams, and jrak-nyb-yjbeban medicines. Any problems you or family members [...] The feeling will not last long. A hazardous material technician will take X-rays. To make the [...] out the dye in your body. Take hupf-vew-lazglkl and prescription medicines only as told by [...] you are taking. During the procedure, a hazardous material technician will insert an IV into one [...] provider. Document Revised: 11/26/2021 Document Reviewed: 04/19/2019 [employer] Patient Education 2022 [employer]. Follow Up Care 06/23/2023 08:39:30 With:Gregor LUIS, KENNEDY Whaley, URO Address: When: Unknown [facility] Evaluation note 05-07-2023 Note Date [...] understanding and is agreeable to treatment plan. [facility] Other Hospital Discharge instructions 09-02-2022 Note Date [...] include: ?8 oz (237 mL) of milk, otfauph-kaecnnyidimx-fbcnc milk, and calcium-fortifiedfruit juice. Calcium-fortified means that [...] ?Spinach (cooked), rhubarb, beets, sweet potatoes, and [place] chard. ?Peanuts. ?Potato chips, nauruan fries, and baked potatoes with skin on. ?Nuts and nut products. ?Chocolate. If you regularly take a diuretic medicine, make sure to eat at least 1 or 2 servings of fruits or vegetables that are high in potassium each day. These include: ?Avocado. ?Banana. ?[place], prune, carrot, or tomato juice. ?Baked potato. [...] magnesium, fish oil, or vitamin B6. Take mebx-plu-ynatywd and prescription medicines only as told by [...] Casseroles. Pizza. Lasagna. Frozen meals. Potato chips. Malaysian fries. The items listed above may not [...] provider. Document Revised: 11/24/2021 Document Reviewed: 11/24/2021 [facility] Patient Education 2022 [employer]. Follow Up Care 03/04/2021 10:12:25 With:Gregor LUIS, KENNEDY Whaley, URO Address: When: Unknown [facility] [employer] Evaluation note 10-07-2021 Note Date & Type [...] R30.0) Sep, Hematuria, unspecified (ICD-10 - R31.9) [facility] Other Evaluation + Plan note Note Date & Type Note Facility Evaluation + Plan note No data available for this section [facility] [employer] Evaluation note Note Date & Type Note Facility Evaluation note [facility] History general Narrative - [...] Hysterectomy Hospitalization History See past surgical hx [facility] Other Progress note Note Date & Type Note Facility Progress note No data available for this section [facility] [employer] Summary Purpose Family History No Family History Records FoundNo Family History Records FoundNo Family History Records Found No data available for this section No Family History Records FoundNo Family History Records Found Advance Directives No Advanced Directives Records Found Advance Directive Response Recorded Date/ Time Advance Directives No July 31, 2019 9:58am Chief Complaint and Reason for Visit Chief Complaint i70.91 h81.4 Chief Complaint i70.91 h81.4 r00.2 Additional Source Comments INFORMATION SOURCE (unrecogn ized section and content) DATE CREATED AUTHOR 04/18/2021 [facility] dical Specialist DATE CREATED AUTHOR AUTHOR'S ORGANIZ ATION 09/07/2022 [facility] DATE CREATED AUTHOR AUTHOR'S ORGANIZ ATION 08/21/2023 [facility] DATE CREATED AUTHOR AUTHOR'S ORGANIZ ATION 09/24/2023 [facility] DATE CREATED AUTHOR AUTHOR'S ORGANIZ ATION 12/06/2023 [facility] d[facility] Specialists EPIC REASON FOR VISIT (unrecogniz ed section and [...] BE BASED ON THE PRIMARY CLINICAL RECORDS. [facility] [employer] [facility]. provides no warranty or guarantee of the accuracy or completeness of information in this document.
[2023-12-22 05:45] LABS: Hematocrit 34.2 % (36.0-48.0); Hemoglobin 10.4 g/dL (12.0-16.0); Mean Corpuscular HGB Conc 30.4 g/dL (29.9-35.2); Mean Corpuscular Hemoglobin 22.7 pg (26.7-34.0); Mean Corpuscular Volume 74.7 fL (81.0-99.0); Mean Platelet Volume 10.4 fL (9.5-13.5); Platelet Count 159 10^3/uL (150-450); Red Blood Count 4.58 10^6/uL (4.20-5.40); Red Cell Distribution Width 16.2 % (11.0-15.0); White Blood Count 5.1 10^3/uL (4.0-11.0)
[2023-12-22 06:01] LABS: SARS-CoV-2 Ag NEGATIVE (NEGATIVE)
[2023-12-22 06:02] LABS: Internal Control Within Normal Limits
[2023-12-22 06:05] LABS: Anion Gap 8.4; BUN Creatinine Ratio 11.4; Calcium 8.5 mg/dL (8.5-10.1); Carbon Dioxide 28.7 mmol/L (21.0-32.0); Chloride 101 mmol/L (98-107); Estimated GFR (African America >60 (>=60); Estimated GFR (Non-African Ame >60 (>=60); Glucose 117 mg/dL (74-106); Potassium 3.1 mmol/L (3.5-5.1); Sodium 135 mmol/L (136-145)
[2023-12-22 06:08] LABS: Troponin I High Sensitivity 7.6 pg/mL (4.0-51.3)
[2023-12-22 06:25] LABS: Basophils Abs Manual 0.05 10^3/uL (0.00-0.10); Lymphocytes Absolute Manual 0.56 10^3/uL (1.20-3.80); Monocytes Absolute Manual 0.51 10^3/uL (0.30-0.80); Segmented Neut Absolute Manual 3.97 10^3/uL (1.4-6.5)
[2023-12-22 06:27] LABS: Ovalocytes 1+
[2023-12-22] MEDS: ACETAMINOPHEN 325 MG TABLET 650 MG PO (06:49)
[2023-12-22 07:59] LABS: Troponin I High Sensitivity 9.6 pg/mL (4.0-51.3)
== END 2023-12-22 08:23 | disposition home or self-care (01) ==
PROVIDERS: Emergency Provider Emergency Medicine; PCP Internal Medicine
DX: R07.89 Other chest pain (principal); F17.200 Nicotine dependence, unspecified, uncomplicated; Z20.822 Contact with and (suspected) exposure to COVID-19
CPT/HCPCS: 36415; 71045; 80048; 84484; 85007; 85027; 87811; 93005; 99285

== ENCOUNTER 2024-05-13 02:22 | Emergency (ER) | payer MEDICARE, SELFPAY ==
[2024-05-13 02:27] VITALS: PULSE 115; TEMP 36.7; O2SAT 94; BMI 28.8
--- OUTSIDE RECORDS SUMMARY | 2024-05-13 02:39 | XMS_ITS | CCD ---
Author Organization [facility] Care Team Providers Care Tile Decorator Name Role Phone Heather Nunez Unavailable MIKE GENAO Primary Care Physician MIREYA, DR ATWOOD Primary Care Unavailable ORIANA DELGADO Attending Unavailable ORIANA DELGADO Consulting Unavailable ORIANA DELGADO Admitting Unavailable FRANCIS HOLDEN Admitting Unavailable MISShalom, DR ATWOOD Primary Care Unavailable FRANCIS HOLDEN Attending Unavailable FRANCIS HOLDEN Consulting Unavailable TATIANNA Voss Attending Provider DO Mike Genao Primary Care Provider DO Mike Genao Attending Provider Milla Skinner Unavailable Ric Kerr Admitting Unavailab Ric Hernandez Attending Unavailab Mike Fajardo Primary Care Unavailable Mike Genao Primary Care Unavailable Ritchie Voss Admitting Unavail able Ritchie Voss Attending Unavail able Ritchie Voss Referring Unavail able Mike Genao Primary Care Unavailable Mike Genao Attending Unavailable Mike Genao Referring Unavailable Mike Genao Admitting Unavailable Ritchie Voss Admitting Unavail able Ritchie Voss Attending Unavail able Mike Genao Primary Care Unavailable Mike Genao Admitting Unavailable Mike Genao Primary Care Unavailable Mike Genao Attending Unavailable Mike Genao DO Unavailable Mike Genao DO Primary Care Provider Tonya Bundy MD Unavailable MIKE GENAO Attending Unavailable MIKE GENAO Referring Unavailable QASIM CHAUDHRY Attending Unavailable MIKE GENAO Referring Unavailable QASIM CHAUDHRY Referring Unavailable MKIE GENAO Attending Unavailable MIKE GENAO Referring Unavailable RITCHIE FERNANDEZ Attending Unavailable RITCHIE FERNANDEZ Referring Unavailable MIKE GENAO Referring Unavailable RITCHIE FERNANDEZ Attending Unavailable MIKE GENAO Attending Unavailable MIKE GENAO Referring Unavailable Tonya Bundy Attending Unavailable Tonya Bundy Attending Unavailable Tonya Bundy Attending Unavailable Allergies Allergy Classification Reported Allergen(s) Allergy Type Date of Onset Reaction(s) Facility (13 sources) Codeine; Translations: [codeine] Drug Allergy 3 GI intolerance [facility] (1 source) Codeine Drug Allergy 0 [facility] Repository (1 source) Codeine Drug Allergy 4 [facility] Repository Medications Current Medications Medication Drug Class(es) Dates Sig (Normalized) Sig (Original) ALPRAZolam 0.25 mg oral tablet (12 sources) Benzodiazepine Start: 10-02-2021 take 1 tablet by mouth every twelve hours ALPRAZolam 0.25 MG 1 tablet Orally Twice a day for 15 days f41.1 Sep, Active Start: 03-01-2019 Xanax Oral, Re fills(s) 0 Start Date: 03/01/19 Status: Ordered take 1 tablet by vivi th twice daily as needed ALPRAZolam (Xanax) 0.5 MG tablet Take 0.5 mg by mouth 2 (two) times a day as needed [facility] Active take 1 tablet by vivi th three times daily as needed ALPRAZolam (Xanax) 0.5 MG tablet Take 0.5 mg by mouth 3 (three) times a day as needed [facility] Active amLODIPine 5 mg oral tablet (3 sources) Dihydropyridine Calcium Channel Heraclio Start: 04-26-2023 End: 11-23-2023 take 0.5 tablet by mouth in the morning amLODIPine (Norvasc) 5 MG tablet Indications: Hypertensive heart disease without heart failure (CMS/HCC) Take 0.5 tablets (2.5 mg) by mouth in the morning. 04/26/2023 11/23/2023 Discontinued (Therapy completed) take 1 tablet by vivi th every twenty-four hours amLODIPine Besylate 5 MG 1 tablet Orally Once a day Active atorvastatin 10 mg oral tablet (8 sources) HMG-CoA Reductase Inhibitor Start: 02-29-2024 End: 02-28-2025 take 1 tablet by mouth once daily atorvastatin (Lipitor) 10 MG tablet Indications: Atherosclerosis of aorta (CMS/HCC) Take 1 tablet (10 mg) by mouth Daily 90 tablet 3 02/29/2024 02/28/2025 Active Start: 08-24-2023 End: 02-20-2024 take 1 tablet by mouth once daily atorvastatin (Lipitor) 10 MG tablet Indications: Atherosclerosis of aorta (CMS/HCC) Take 1 tablet (10 mg) by mouth Daily 30 tablet 5 08/24/2023 02/20/2024 Active 120 actuat budesonide 0.16 mg/actuat / formoterol fumarate 0.0048 mg/actuat / glycopyrrolate 0.009 mg/actuat metered dose inhaler (6 sources) Corticosteroid, beta2-Adrenergic Agonist Start: 11-11-2022 Ltgtlxc-Kdjmisnahcu-Fjxswoao ol (Breztri Aerosphere) 160-9-4.8 MCG/ACT aerosol Indications: Chronic obstructive pulmonary disease with acute exacerbation (CMS/HCC) Inhale 160 mcg every 12 (twelve) hours. 1 g 3 11/11/2022 Active calcium carbonate 1500 mg oral tablet (8 sources) Start: 11-23-2023 End: 02-28-2025 take 1 tablet by mouth in the morning calcium carbonate (Calcium 600) 600 MG tablet Indications: Age-related osteoporosis without current pathological fracture (CMS/HCC) Take 1 tablet (600 mg) by mouth in the morning and 1 tablet (600 mg) in the evening. Take with meals. 180 tablet 3 02/29/2024 02/28/2025 Active 1 ml denosumab 60 mg/ml prefilled syringe (6 sources) RANK Ligand Inhibitor Start: 04-07-2023 denosumab (Prolia) 60 MG/ML solution prefilled syringe Indications: Age-related osteoporosis without current pathological fracture (CMS/HCC) Inject 1 mL (60 mg) under the skin every 6 (six) months To be given at [facility] 1 mL 1 04/07/2023 Active ferrous gluconate 324 mg oral tablet (4 sources) Start: 02-29-2024 End: 02-28-2025 take 1 tablet by mouth every other day ferrous gluconate (Fergon) 324 (38 Fe) MG tablet Indications: Iron deficiency anemia, unspecified iron deficiency anemia type Take 1 tablet (324 mg) by mouth every other day 45 tablet 3 02/29/2024 02/28/2025 Active hydrOXYzine (8 sources) Antihistamine Start: 08-15-2019 hydrOXYzine pamoate Oral, QI D, Refills(s) 0 Start Date: 08/15/19 Status: Ordered Start: 03-01-2019 hydrOXYzine Re fills(s) 0 Start Date: 03/01/19 Status: Ordered take 1 capsule by [facility] every eight hours hydrOXYzine Pamoate 50 MG 1 capsule as needed Orally every 8 hrs for 90 Active lidocaine 0.05 mg/mg medicated patch (1 source) Antiarrhythmic, Amide Local Anesthetic Start: 05-07-2023 Lidocaine 5 % 1 patch remove after 12 hours Externally Once a day for 7 days Apr, Active meclizine hydrochloride 25 mg oral tablet (2 sources) Antiemetic End: 11-23-2023 take 1 tablet by mouth three times daily as needed for dizziness meclizine (Antivert) 25 MG tablet Take 25 mg by mouth 3 (three) times a day as needed for dizziness. [facility] 11/23/2023 Discontinued methylPREDNISolone 4 mg oral tablet (1 source) Corticosteroid Start: 05-07-2023 methylPREDNISolone 4 MG as directed Orally for 6 Apr, Active mirtazapine 15 mg oral tablet (13 sources) Start: 09-02-2022 mirtazapine 15 mg Tab [...] B12 take 1 tablet by mouth every twenty-four hours Vitamin B12 500 MCG 1 tablet [...] Drug Class(es) Dates Sig (Normalized) Sig (Original) cholecalciferol 0.05 mg oral tablet (6 sources) Vitamin D Start: 11-23-2023 End: 11-22-2024 take 1 tablet by mouth once daily cholecalciferol (Vitamin D-3) 50 MCG (1999 UT) tablet Indications: Age-related osteoporosis without current pathological fracture (CMS/HCC) Take 1 tablet (50 mcg) by mouth Daily 11/23/2023 04/11/2024 Discontinued (Ineffective) ciprofloxacin 500 mg oral tablet (4 sources) [...] Problem Classification Problem Date Documented Date Episodic/Chronic Administrative/social admission (2 sources) Patient encounter status; Translations: [Other specified counseling] 02-29-2024 Episodic Anxiety disorders (20 sources) Generalized anxiety disorder; Translations: [Generalized anxiety disorder] Onset: 12-09-2021 03-01-2019 Chronic Asthma (2 sources) Asthma 03-01-2019 Chronic Blindness and vision defects (4 sources) Diplopia; Translations: [Diplopia] 02-29-2024 Episodic Chronic obstructive pulmonary disease and bronchiectasis (20 sources) Chronic obstructive lung disease; Translations: [Chronic obstructive pulmonary disease, unspecified] Onset: 08-28-2022 Resolved: 04-19-2023 02-29-2024 Chronic Coagulation and hemorrhagic disorders (2 sources) Thrombocytopenic disorder; Translations: [Thrombocytopenia, unspecified] 04-11-2024 Chronic Coronary atherosclerosis and other heart disease (6 sources) Calcification of coronary artery; Translations: [Atherosclerotic heart disease of [place] coronary artery without angina pectoris] Onset: 12-02-2023 02-29-2024 Chronic Deficiency and other anemia (1 source) Iron deficiency anemia, unspecified; Translations: [Iron deficiency anemia, unspecified] Onset: 12-20-2023 Episodic Deficiency and other anemia (4 sources) Iron deficiency anemia; Translations: [Iron deficiency anemia, unspecified] 02-29-2024 Episodic Disorders of lipid metabolism (10 sources) Hyperlipidemia; Translations: [Hyperlipidemia, unspecified] Onset: 10-21-2022 03-01-2019 Chronic Immunizations and screening for infectious disease (2 sources) Needs influenza immunization; Translations: [Encounter for immunization] 02-29-2024 Episodic Mood disorders (4 sources) Recurrent major depressive episodes, moderate ; Translations: [Major depressive disorder, recurrent, moderate] Chronic Nutritional deficiencies (10 sources) Vitamin D deficiency; Translations: [Vitamin D deficiency, unspecified] Onset: 08-28-2022 03-01-2019 Chronic Nutritional deficiencies (20 sources) Vitamin B deficiency; Translations: [Iron deficiency] Onset: 08-28-2022 03-01-2019 Episodic Osteoarthritis (2 sources) Arthritis 03-01-2019 Chronic Osteoporosis (11 sources) Age-related osteoporosis without current pathological fracture; Translations: [Senile osteoporosis] Onset: 08-28-2022 02-29-2024 Chronic Other diseases of kidney and ureters (2 sources) Hydronephrosis 09-01-2022 Episodic Other diseases of kidney and ureters (2 sources) Obstruction of pelviureteric junction 03-01-2019 Episodic Other inflammatory condition of skin (8 sources) Psoriasis; Translations: [Psoriasis, unspecified] Onset: 08-28-2022 03-01-2019 Chronic Other inflammatory condition of skin (6 sources) Psoriatic arthritis; Translations: [Arthropathic psoriasis, unspecified] Onset: 08-28-2022 08-28-2022 Chronic Other liver diseases (10 sources) Steatosis of liver; Translations: [Fatty (change of) liver, not elsewhere classified] Onset: 08-28-2022 02-29-2024 Chronic Other nutritional; endocrine; and metabolic disorders (4 sources) Hypocalcemia; Translations: [Hypocalcemia] Onset: 04-11-2024 04-11-2024 Chronic Other screening for suspected conditions (not mental disorders or infectious disease) (12 sources) Radiology result abnormal; Translations: [Abnormal findings on diagnostic imaging of other specified body structures] Onset: 04-11-2024 02-29-2024 Episodic Other skin disorders (2 sources) Loss of hair; Translations: [Nonscarring hair loss, unspecified] 02-29-2024 Episodic Peripheral and visceral atherosclerosis (20 sources) Arteriosclerotic vascular disease; Translations: [Generalized atherosclerosis] Onset: 08-28-2022 03-01-2019 Chronic Residual codes; unclassified (4 sources) Tobacco dependence syndrome; Translations: [Tobacco use] Episodic Sprains and strains (1 source) Strain of muscle, fascia and tendon of lower back, initial encounter Episodic Substance-related disorders (14 sources) Smoker; Translations: [Nicotine dependence, cigarettes, uncomplicated] Onset: 12-09-2021 08-15-2019 Chronic Past or Other Problems Problem Classification Problem Date Documented Date Episodic/Chronic Calculus of urinary tract (10 sources) Kidney stone; Translations: [Calculus of kidney] Onset: 09-01-2022 Episodic Cardiac dysrhythmias (1 source) Palpitations; Translations: [Palpitations] Onset: 04-08-2023 Episodic Conditions associated with dizziness or vertigo (9 sources) Dizziness and giddiness; Translations: [Vertigo of central origin] Onset: 12-07-2021 Episodic Fever of unknown origin (3 sources) Fever, unspecified Onset: 10-07-2021 Resolved: 10-07-2021 Episodic Genitourinary congenital anomalies (13 sources) Congenital pelviureteric junction obstruction; 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] Onset: 09-01-2022 Resolved: 10-21-2022 Chronic Genitourinary symptoms and ill-defined conditions (20 sources) Dysuria; Translations: [Hematuria, unspecified] Onset: 10-07-2021 Resolved: 10-07-2021 Episodic Other aftercare (1 source) Other crossbow maker (current) drug therapy; Translations: [OTH CURRICULUM DEVELOPMENT MANAGER CURRENT DRUG THERAPY] Onset: 12-09-2021 Episodic Other diseases of kidney and ureters (8 sources) Cyst of kidney; Translations: [Cyst of kidney, acquired] Onset: 10-21-2022 Resolved: 10-21-2022 03-01-2019 Episodic Other diseases of kidney and ureters (8 sources) Stricture of ureter; Translations: [Crossing vessel and stricture of ureter without hydronephrosis] Onset: 10-21-2022 Resolved: 10-21-2022 08-15-2019 Episodic Other lower respiratory disease (6 sources) Solitary nodule of lung; Translations: [Solitary pulmonary nodule] Onset: 08-28-2022 08-28-2022 Episodic Residual codes; unclassified (2 sources) Tobacco user; Translations: [Tobacco use] 11-23-2023 Episodic Spondylosis; intervertebral disc disorders; other back problems (2 sources) Low back pain; Translations: [Lumbar back pain] 11-23-2023 Episodic Urinary tract infections (3 sources) Urinary [...] MD Normal Not Available [place] 09-06-2023 Screens [id number] Normal [facility] Ambulatory Visit Summaryon 0 09-03-2023 Ambulatory Visit [...] included)... Normal [facility] Patient Educationon 09-03-19 24 Patient Education Pulmonary [...] require a prescription. You can also purchase dvfi-ayv-aabespi medicines. Medicines may have nicotine in them [...] and encouragement. Call telephone quitlines, such as 4-713-FKYH-NOW, reach out to support groups, or work [...] included)... Normal [facility] Urology Office/Clinic Noteon 09-03-2023 Urology Office/Clinic Note Chief Complaint F/U with Renal scan HPI Staff Pt here today for a F/U with Renal scan @ [facility] on 06/21/23 Previous DX: frequency of [...] included)... Normal [facility] Comment on above: Result Comment: Elec tronically Signed By: Tonya Bundy MD\.br\Date and Time Signed: 09/03/23 14:51 EDT\.br\Electronically Co-Signed By: Jackie Zarate\.br\Date and Time Co-Signed: 09/03/23 14:43 EDT\.br\Electronically Co-Signed By: Jackie Zarate\.br\Date and Time Co-Signed: 09/03/23 14:46 EDT RAD - Nuclear Medicine Repor ton 03-26-2024 RAD - Nuclear Medicine Report [id number] #[id number] Normal [facility] XR LUMBAR SPINE 2-3 VIEWSon 05-27-2023 XR LUMBAR SPINE 2-3 VIEWS FINDINGS: Lumbar vertebral bodies normal in height. 4 mm anterolisthesis, L4 on L5. Diffuse disc space narrowing L5-S1. 3.6 mm retrolisthesis L5 on S1. No fracture. No bone lesion. IMPRESSION: Grade 1 L4 spondylolisthesis. L5 retrolisthesis. Moderate degenerative change lower lumbar spine. ELECTRONICALLY SIGNED BY: Hernandez Nur MD Normal Not Available [facility] echo transthoracicon [facility] echo transthoracic [facility] Main [place] [address] [place] [address] Echocardiogram Signed Patient: Christal Ervin MR#: [id number] 466 : 1950 Acct:[id number] Age/Sex: 72 / F ADM Date: 04/08/23 Loc: Room: Type: [facility] Attending Dr: Mike Genao DO Ordering Provider: Mike Genao DO Date of Service: 04/08/23/ [facility] echo transthoracic: PALPITATIONS Copies to: MD Mike [...] Martin Mcnulty MD 04/08/23 1646 Normal [facility] CA holter monitor recordingo n 03-11-2023 CA holter monitor recording [facility] [place] [address] Holter Monitor Report Signed Patient: Christal Ervin MR#: [id number] 466 : 1950 Acct:[id number] Age/Sex: 72 / F ADM Date: 03/08/23 Loc: Room: Type: [facility] Attending Dr: Ritchie CAMPUZANO Copies [...] were no other observations. Transcribed By: RADHA 03/11/23 2222 Dictated By: Telly Hauser MD 03/11/23 1726 Signed By: 03/13/23 1239 Normal [facility] US KIDNEYSon 08-26-2022 KIDNEYS EXAM: US KIDNEYS HISTORY: . Hydronephrosis [...] CATINA KHANNA Date: 2022-08-26 10:33 Normal [facility] CBC AUTO DIFFon 12-07-2021 BASO # 0.0 103/ul Normal 0.0-0.1 [facility] Comment on above: Performed By: #### C BC #### [facility] [address] [place] [address] Dr. Senait Pisano Basophils/100 WBC (Bld) 1.0 % Normal 0.2-2.0 [facility] Comment on above: Performed By: #### C BC #### [facility] [address] [place] [address] Dr. Senait Pisano EO # 0.1 103/ul Normal 0.0-0.7 [facility] Comment on above: Performed By: #### C BC #### [facility] [address] [place] [address] Dr. Senait Pisano Eosinophils/100 WBC (Bld) 2.0 % Normal 0.9-7.0 [facility] Comment on above: Performed By: #### C BC #### [facility] [address] [place] [address] Dr. Senait Pisano Erythrocyte distribution width (RBC) [Ratio] 15.7 % Critically high 11.0-15.0 [facility] Comment on above: Performed By: #### C BC #### [facility] [address] [place] [address] Dr. Senait Pisano Hematocrit (Bld) [Volume fraction] 38.8 % Normal 36.0-48.0 [facility] Comment on above: Performed By: #### C BC #### [facility] [address] [place] [address] Dr. Senait Pisano Hemoglobin (Bld) [Mass/Vol] 12.0 g/dL Normal 12.0-16.0 [facility] Comment on above: Performed By: #### C BC #### [facility] [address] [place] [address] Dr. Senait Pisano IG # 0.01 10e3/ul Normal 0.00-0.03 [facility] Comment on above: Performed By: #### C BC #### [facility] [address] [place] [address] Dr. Senait Pisano IG % 0.2 % Normal 0.0-0.5 [facility] Comment on above: Performed By: #### C BC #### [facility] [address] [place] [address] Dr. Senait Pisano LYMPH # 0.9 103/ul Critically low 1.2-3.8 [facility] Comment on above: Performed By: #### C BC #### [facility] [address] [place] [address] Dr. Senait Pisano Lymphocytes/100 WBC (Bld) 20.8 % Normal 20.5-60.0 [facility] Comment on above: Performed By: #### C BC #### [facility] [address] [place] [address] Dr. Senait Pisano MANUAL DIFF REQ NO Normal [facility] Comment on above: Performed By: #### C BC #### [facility] [address] [place] [address] Dr. Senait Pisano MCH (RBC) [Entitic mass] 23.6 pg Critically low 26.7-34.0 [facility] Comment on above: Performed By: #### C BC #### [facility] [address] [place] [address] Dr. Senait Pisano MCHC (RBC) [Mass/Vol] 30.9 g/dL Normal 29.9-35.2 [facility] Comment on above: Performed By: #### C BC #### [facility] [address] [place] [address] Dr. Senait Pisano MCV (RBC) [Entitic vol] 76.4 fL Critically low 81.0-99.0 [facility] Comment on above: Performed By: #### C BC #### [facility] [address] [place] [address] Dr. Senait Pisano MONO # 0.5 103/ul Normal 0.3-0.8 [facility] Comment on above: Performed By: #### C BC #### [facility] [address] [place] [address] Dr. Senait Pisano Monocytes/100 WBC (Bld) 13.2 % Critically high 1.7-12.0 [facility] Comment on above: Performed By: #### C BC #### [facility] [address] [place] [address] Dr. Senait Pisano NEUT # 2.6 103/ul Normal 1.4-6.5 [facility] Comment on above: Performed By: #### C BC #### [facility] [address] [place] [address] Dr. Senait Pisano Neutrophils/100 WBC (Bld) 62.8 % Normal 43.0-75.0 [facility] Comment on above: Performed By: #### C BC #### [facility] [address] [place] [address] Dr. Senait Pisano Platelet mean volume (Bld) [Entitic vol] 10.0 fL Normal 9.5-13.5 [facility] Comment on above: Performed By: #### C BC #### [facility] [address] [place] [address] Dr. Senait Pisano PLT 177 103/ul Normal 150-450 [facility] Comment on above: Performed By: #### C BC #### [facility] [address] [place] [address] Dr. Senait Pisano RBC 5.08 106/ul Normal 4.20-5.40 [facility] Comment on above: Performed By: #### C BC #### [facility] [address] [place] [address] Dr. Senait Pisano WBC 4.1 103/ul Normal 4.0-11.0 [facility] Comment on above: Performed By: #### C BC #### [facility] [address] [place] [address] Dr. Senait Pisano PROF CHEM 8 (BAS METB)on Anion gap [Moles/Vol] 8.3 mmol/L Normal [facility] Comment on above: Performed By: #### B MP #### [facility] [address] [address] [address] Senait Pisano Calcium [Mass/Vol] 8.0 mg/dL Critically low 8.5-10.1 Th e [facility] Comment on above: Performed By: #### B MP #### [facility] [address] [address] [address] Senait Pisano Chloride [Moles/Vol] 105 mmol/L Normal 98-107 [facility] Comment on above: Performed By: #### B MP #### [facility] [address] [address] [address] Senait Pisano CO2 [Moles/Vol] 28.6 mmol/L Normal 21.0-32.0 [facility] Comment on above: Performed By: #### B MP #### [facility] [address] [address] [address] Senait Pisano Creatinine [Mass/Vol] 0.68 mg/dL Normal 0.55-1.02 [facility] Comment on above: Performed By: #### B MP #### [facility] [address] [address] [address] Senait Pisano EGFR-AF TRISTANIAN >60 Normal >=60 [facility] Comment on above: Performed By: #### B MP #### [facility] [address] [address] [address] Senait Pisano EGFR-NON AF TRISTANIAN >60 Normal >=60 [facility] Comment on above: Performed By: #### B MP #### [facility] [address] [address] [address] Senait Pisano Glucose [Mass/Vol] 192 mg/dL Critically high 74-106 T [facility] Comment on above: Performed By: #### B MP #### [facility] [address] [address] [address] Senait Pisano Potassium [Moles/Vol] 3.9 mmol/L Normal 3.5-5.1 [facility] Comment on above: Performed By: #### B MP #### [facility] [address] [place], [place] [address] Dr. Senait Pisano Sodium [Moles/Vol] 138 mmol/L Normal 136-145 [facility] Comment on above: Performed By: #### B MP #### [facility] [address] [address] [address] Senait Pisano Urea nitrogen [Mass/Vol] 9.0 mg/dL Normal 7.0-18.0 [facility] Comment on above: Performed By: #### B MP #### [facility] [address] [address] [address] Senait Pisano Urea nitrogen/Creatinine [Mass ratio] 13.2 mg/mg Normal [facility] Comment on above: Performed By: #### B MP #### [facility] [facility] [address] [address] [address] Senait Pisnao Quick Fluon 10-07-2021 FLUAV Ab CF (S) [Titer] Negative [employer] Other FLUBV Ab CF (S) [Titer] Negative [employer] Other Urinalysis - AUTOMATEDon Appearance (U) CLOUDY [employer] Other Bilirubin Ql (U) Negative [employer] Other Color (U) YELLOW [employer] Other Glucose Ql (U) Negative [employer] Other Hemoglobin Ql (U) MODERATE [employer] Other Ketones Ql (U) Negative [employer] Other Leukocyte esterase Test strip Ql (U) LARGE [employer] Other Nitrite Ql (U) Positive [employer] Other pH (U) 5.5 [pH] [employer] Other Protein Ql (U) 30 [employer] Other Specific gravity (U) [Rel density] <1.005 [employer] Other Urobilinogen (U) [Mass/Vol] 0.2 mg/dL [employer] Other Urinalysis - AUTOMATED [employer] Other Urine Cultureon 10-07-2021 Urine Culture >100,000 [employer] Other Urine Culture <16 Susceptible [employer] Other Urine Culture >16 Resistant [employer] Other Urine Culture <4 Susceptible [employer] Other Urine Culture 4 Susceptible [employer] Other Urine Culture <2 Susceptible [employer] Other Urine Culture <1 Susceptible [employer] Other Urine Culture <0.5 Susceptible [employer] Other Urine Culture <32 Susceptible [employer] Other Urine Culture <2/38 Susceptible [employer] Other Complete Blood Count with Au to Diffon 04-17-2021 Basophils (Bld) [#/Vol] 0.08 10*3/uL Normal 0.00-0.20 [facility] [employer] Comment on above: Performed By: #### C BCAD, CMP #### [facility] [address], [place] [id number] Basophils/100 WBC (Bld) 1.4 % Normal [facility] [employer] Comment on above: Performed By: #### C BCAD, CMP #### [facility] [address], [place] [id number] Eosinophils (Bld) [#/Vol] 0.13 10*3/uL Normal 0.02-0.50 [facility] [employer] Comment on above: Performed By: #### C BCAD, CMP #### [facility] [address], [place] [id number] Eosinophils/100 WBC (Bld) 2.3 % Normal [facility] [employer] Comment on above: Performed By: #### C IRVING, CMP #### [facility] [address], [place] [id number] Erythrocyte distribution width (RBC) [Ratio] 15.6 % High 11.0-15.0 [facility] [employer] Comment on above: Performed By: #### C IRVING, CMP #### [facility] [address], [place] [id number] Hematocrit (Bld) [Volume fraction] 42.8 % Normal 35.0-47.0 [facility] [employer] Comment on above: Performed By: #### C IRVING, CMP #### [facility] [address], [place] [id number] Hemoglobin (Bld) [Mass/Vol] 13.3 g/dL Normal 11.6-15.5 [facility] [employer] Comment on above: Performed By: #### C IRVING, CMP #### [facility] [address], [place] [id number] Lymphocytes (Bld) [#/Vol] 1.4 10*3/uL Normal 0.9-3.9 [facility] [employer] Comment on above: Performed By: #### C IRVING, CMP #### [facility] [address], [place] [id number] Lymphocytes/100 WBC (Bld) 25.0 % Normal [facility] [employer] Comment on above: Performed By: #### C IRVING, CMP #### [facility] [address], [place] [id number] MCH (RBC) [Entitic mass] 23.7 pg Low 27.0-33.0 [facility] [employer] Comment on above: Performed By: #### C IRVING, CMP #### [facility] [address], [place] [id number] MCHC (RBC) [Mass/Vol] 31.1 g/dL Low 32.0-36.0 [facility] [employer] Comment on above: Performed By: #### C IRVING, CMP #### [facility] [address], [place] [id number] MCV (RBC) [Entitic vol] 76 fL Low 80-100 [facility] Comment on above: Performed By: #### Shalom VILLATORO, CMP #### [facility] [address], [place] [id number] Monocytes (Bld) [#/Vol] 0.8 10*3/uL Normal 0.2-0.9 [facility] Comment on above: Performed By: #### Shalom VILLATORO, CMP #### [facility] [address], [place] [id number] Monocytes/100 WBC (Bld) 14.3 % Normal [facility] Comment on above: Performed By: #### Shalom VILLATORO, CMP #### [facility] [address], [place] [id number] Neutrophils (Bld) [#/Vol] 3.2 10*3/uL Normal 1.5-7.8 [facility] Comment on above: Performed By: #### Shalom VILLATORO, CMP #### [facility] [address], [place] [id number] Neutrophils/100 WBC (Bld) 56.5 % Normal [facility] Comment on above: Performed By: #### Shalom VILLATORO, CMP #### [facility] [address], [place] [id number] Platelet mean volume (Bld) [Entitic vol] 11.10 fL Normal 7.50-12.50 [facility] Comment on above: Performed By: #### Shalom VILLATORO, CMP #### [facility] [address], [place] [id number] Platelets (Bld) [#/Vol] 220 10*3/uL Normal 140-400 [facility] Comment on above: Performed By: #### C IRVING, CMP #### [facility] [address], [place] [id number] RBC (Bld) [#/Vol] 5.61 10*6/uL High 3.90-5.20 [facility] Specialist Comment on above: Performed By: #### C IRVING, CMP #### [facility] [address], [place] [id number] RDW-SD 42.5 fL Normal 37.0-50.0 [facility] [employer] Comment on above: Performed By: #### C BCAD, CMP #### [facility] [address], [place] [id number] WBC (Bld) [#/Vol] 5.6 10*3/uL Normal 3.8-11.0 [place] [employer] Comment on above: Performed By: #### C BCAD, CMP #### [facility] [address], [place] [id number] Comprehensive Metabolic Pane dulce maria 04-17-2021 Albumin [Mass/Vol] 4.2 g/dL Normal 3.6-5.1 [place] [employer] Comment on above: Performed By: #### C BCAD, CMP #### [facility] [address], [place] [id number] Albumin/Globulin [Mass ratio] 1.4 {ratio} Normal 1.0-2.5 [facility] [employer] Comment on above: Performed By: #### C BCAD, CMP #### [facility] [address], [place] [id number] ALP [Catalytic activity/Vol] 138 U/L High 35-119 [facility] [employer] Comment on above: Performed By: #### C BCAD, CMP #### [facility] [address], [place] [id number] ALT [Catalytic activity/Vol] 24 U/L Normal 6-33 [facility] [employer] Comment on above: Result Comment: 02/26 Female reference range changed. Performed By: #### C BCAD, CMP #### [facility] [address], [place] [id number] Anion gap [Moles/Vol] 19 mmol/L Normal 12-20 [facility] [employer] Comment on above: Result Comment: Effe ctive 04/03/2019 reference range changed. Performed By: #### C BCAD, CMP #### [facility] [address], [place] [id number] AST [Catalytic activity/Vol] 30 U/L Normal 9-34 [facility] [employer] Comment on above: Performed By: #### C BCAD, CMP #### [facility] [address], [place] [id number] BUN/CREA 20 Ratio Normal 6-[address] [facility] Comment on above: Performed By: #### C BCAD, CMP #### [facility] [address], [place] [id number] Calcium [Mass/Vol] 9.0 mg/dL Normal 8.6-10.2 [facility] Comment on above: Performed By: #### C BCAD, CMP #### [facility] [address], [place] [id number] Chloride [Moles/Vol] 103 mmol/L Normal 98-107 [facility] Comment on above: Performed By: #### C BCAD, CMP #### [facility] [address], [place] [id number] CO2 [Moles/Vol] 22 mmol/L Normal 20-[address] [facility] Comment on above: Performed By: #### C BCAD, CMP #### [facility] [address], [place] [id number] Creatinine [Mass/Vol] 0.6 mg/dL Normal 0.6-1.[address] [facility] Comment on above: Performed By: #### C BCAD, CMP #### [facility] [address], [place] [id number] eGFRAA 111 mL/min/1.73m2 Normal >60 [facility] Comment on above: Performed By: #### C BCAD, CMP #### [facility] [address], [place] [id number] eGFRNAA 92 mL/min/1.73m2 Normal >60 [facility] Comment on above: Performed By: #### C BCAD, CMP #### [facility] [address], [place] [id number] Globulin (S) [Mass/Vol] 3.0 g/dL Normal 1.9-3.7 [facility] Comment on above: Performed By: #### C BCAD, CMP #### [facility] [address], [place] [id number] Glucose [Mass/Vol] 113 mg/dL High 65-99 [facility] [place] [employer] Comment on above: Result Comment: For FASTING Glucose --- ADA reference ranges: Normal 65-99 mg/dl Prediabetes 100-125 Diabetes >/= 126 Performed By: #### C BCAD, CMP #### [facility] [address], [place] [id number] Potassium [Moles/Vol] 4.3 mmol/L Normal 3.5-5.5 [facility] [employer] Comment on above: Performed By: #### C BCAD, CMP #### [facility] [address], [place] [id number] Protein [Mass/Vol] 7.2 g/dL Normal 6.1-8.1 [place] [employer] Comment on above: Performed By: #### C BCAD, CMP #### [facility] [address], [place] [id number] Sodium [Moles/Vol] 139 mmol/L Normal 135-146 [place] [employer] Comment on above: Performed By: #### C BCAD, CMP #### [facility] [address], [place] [id number] TBIL <0.3 Normal [facility] [employer] Comment on above: Performed By: #### C BCAD, CMP #### [facility] [address], [place] [id number] Urea nitrogen [Mass/Vol] 13 mg/dL Normal 7-25 [facility] [employer] Comment on above: Performed By: #### C BCAD, CMP #### [facility] [address], [place] [id number] Hemoglobin A1Con 04-17-2021 EAG 119.76 Normal [facility] [employer] Comment on above: Performed By: #### A 1C #### [facility] [address], [place] [id number] HbA1c (Bld) [Mass fraction] 5.8 % Normal 4.0-6.0 [facility] [employer] Comment on above: Performed By: #### A 1C #### [facility] [address], [place] [id number] Vital Signs Date Time Vital Sign Value Performing Clinician Facility 04-11-2024 09:53-0500 Body height 162.6 cm Mike Vaschak DO Work Phone: [facility] 04-11-2024 09:53-0500 Body mass index (BMI) [Ratio] 29.87 kg/m2 Mike Genao DO Work Phone: [facility] 04-11-2024 09:53-0500 Body weight 78.93 kg Mike Genao DO Work Phone: [facility] 04-11-2024 09:53-0500 Diastolic blood pressure 70 mm[Hg] Mike Genao DO Work Phone: [facility] 04-11-2024 09:53-0500 Heart rate 86 /min Mike Genao DO Work Phone: [facility] 04-11-2024 09:53-0500 SaO2% (BldA) [Mass fraction] 96 % Mike Genao DO Work Phone: [facility] 04-11-2024 09:53-0500 Systolic blood pressure 132 mm[Hg] Mike Genao DO Work Phone: [facility] 02-29-2024 09:43-0500 Body height 162.6 cm Ritchie Fernandez [employer]OUND [employer] Work Phone: [facility] 02-29-2024 09:43-0500 Body mass index (BMI) [Ratio] 28.32 kg/m2 Ritchie Fernandez [employer] Work Phone: [facility] 02-29-2024 09:43-0500 Body weight 74.84 kg Ritchie Fernandez [employer] Work Phone: [facility] 02-29-2024 09:43-0500 Diastolic blood pressure 70 mm[Hg] Ritchie Fernandez [employer] Work Phone: [facility] 02-29-2024 09:43-0500 Heart rate 76 /min Ritchie Fernandez [employer] Work Phone: [facility] 02-29-2024 09:43-0500 SaO2% (BldA) [Mass fraction] 97 % Ritchie Fernandez [employer] Work Phone: [facility] 02-29-2024 09:43-0500 Systolic blood pressure 130 mm[Hg] Ritchie Fernandez [employer] Work Phone: [facility] 11-23-2023 10:00-0400 Body height 162.6 cm Ritchie Fernandez [employer] Work Phone: [facility] 11-23-2023 10:00-0400 Body mass index (BMI) [Ratio] 27.98 kg/m2 Ritchie Fernandez [employer] Work Phone: [facility] 11-23-2023 10:00-0400 Body weight 73.94 kg Ritchie Fernandez [employer] Work Phone: [facility] 11-23-2023 10:00-0400 Diastolic blood pressure 60 mm[Hg] Ritchie Fernandez [employer] Work Phone: [facility] 11-23-2023 10:00-0400 Heart rate 103 /min Ritchie Fernandez [employer] Work Phone: [facility] 11-23-2023 10:00-0400 SaO2% (BldA) [Mass fraction] 97 % Ritchie Fernandez [employer] Work Phone: [facility] 11-23-2023 10:00-0400 Systolic blood pressure 122 mm[Hg] Ritchie Fernandez [employer] Work Phone: [facility] 09-03-2023 13:52-0400 Blood Pressure Location Tonya Lue [facility] 09-03-2023 13:52-0400 Body temperature 96.44 [degF] Tonya Lue [facility] 09-03-2023 13:52-0400 Diastolic blood pressure 84 mm[Hg] Tonya Lue [facility] 09-03-2023 13:52-0400 Heart rate 78 /min Tonya Lue [facility] 09-03-2023 13:52-0400 Systolic blood pressure 128 mm[Hg] Tonya Lue [facility] 05-07-2023 09:00-0500 Body height 162.56 cm Milla Skinner Other [employer] [facility] [employer] Other 05-07-2023 09:00-0500 Body mass index (BMI) [Ratio] 28.25 kg/m2 Milla Skinner Other [employer] Other 05-07-2023 09:00-0500 Body temperature 98 [degF] Milla Skinner Other [employer] Other 05-07-2023 09:00-0500 Body weight 74.66 kg Milla Skinner Other [employer] Other 05-07-2023 09:00-0500 Diastolic blood pressure 80 mm[Hg] Milla Skinner Other [employer] Other 05-07-2023 09:00-0500 Respiratory rate 18 /min Milla Skinner Other [employer] Other 05-07-2023 09:00-0500 SaO2% (BldA) [Mass fraction] 98 % Milla Skinner Other [employer] Other 05-07-2023 09:00-0500 Systolic blood pressure 136 mm[Hg] Milla Skinner Other [employer] Other 09-02-2022 10:45-0400 Blood Pressure Location Tonya Lue [facility] 09-02-2022 10:45-0400 Diastolic blood pressure 83 mm[Hg] Tonya Lue [facility] 09-02-2022 10:45-0400 Heart rate 100 /min Tonya Bundy [facility] 09-02-2022 10:45-0400 Systolic blood pressure 150 mm[Hg] Tonya Lue [facility] 10-07-2021 10:00-0400 Body height 162.56 cm Heather Mayra Other [employer] Other 10-07-2021 10:00-0400 Body mass index (BMI) [Ratio] 29.01 kg/m2 Heather Nunez Other [employer] Other 10-07-2021 10:00-0400 Body temperature 99.6 [degF] Heather Mayra Other [employer] Other 10-07-2021 10:00-0400 Body weight 76.66 kg Heather Mayra Other [employer] Other 10-07-2021 10:00-0400 SaO2% (BldA) [Mass fraction] 95 % Heather Mayra Other [employer] Other Encounters Encounter Date Encounter Type Care Provider Facility Start: 05-19-2024 ambulatory Tonya Bundy Facility:[facility] Start: 04-11-2024 End: 04-11-2024 Office outpatient visit 25 minutes Mike Genao DO Work Phone: [facility] Comment on above: Hypocalcemia (Primar y Dx); Chronic obstructive pulmonary disease, unspecified (CMS/HCC); Low vitamin D level; Iron deficiency; Thrombocytopenia (CMS/HCC); Double vision Start: 04-11-2024 End: 04-11-2024 ambulatory MIKE GENAO Not Available Start: 02-29-2024 End: 02-29-2024 Office outpatient visit 40 minutes Ritchie Fernandez [employer] Work Phone: [facility] Comment on above: Medicare annual well ness visit, subsequent (Primary Dx); Age-related osteoporosis without current pathological fracture (CMS/HCC); Need for immunization against influenza; ACP (advance care planning); Coronary artery calcification (CMS/HCC); Tobacco use disorder, severe, dependence; Iron deficiency; Iron deficiency anemia, unspecified iron deficiency anemia type; Atherosclerosis of aorta (CMS/HCC); Depression with anxiety; Simple chronic bronchitis (CMS/HCC); Fatty liver; Atherosclerosis of abdominal aorta (CMS/HCC); Smokers' cough (CMS/HCC); Encounter for screening mammogram for malignant neoplasm of breast; Vitamin D deficiency; Hair loss; Diplopia Start: 02-29-2024 End: 02-29-2024 Patient encounter procedure Ritchie Fernandez [employer] Work Phone: [facility] Work Phone: Start: 02-29-2024 End: 02-29-2024 ambulatory MIKE GENAO Not Available Start: 12-20-2023 ambulatory Mike Genao Facility :[facility] Start: 12-01-2023 End: 12-01-2023 ambulatory RITCHIE FERNANDEZ Not Available Start: 11-23-2023 End: 11-23-2023 Office outpatient visit 40 minutes Ritchie Fernandez [employer] Work Phone: [facility] Comment on above: Iron deficiency anem ia, unspecified iron deficiency anemia type (Primary Dx); Low vitamin D level; Age-related osteoporosis without current pathological fracture (CMS/HCC); Iron deficiency; Fatty liver; Generalized atherosclerosis; Vitamin B12 deficiency; Pure hypercholesterolemia (CMS/HCC); Simple chronic bronchitis (CMS/HCC); Lumbar back pain; Tobacco abuse; Nicotine dependence, cigarettes, uncomplicated Start: 11-23-2023 End: 11-23-2023 ambulatory RITCHIE FERNANDEZ Not Available Start: 09-08-2023 ambulatory Tonya Bundy Facility:[facility] Start: 09-03-2023 End: 09-03-2023 ambulatory Tonya Bundy Facility:[facility] Start: 09-03-2023 End: 09-03-2023 Patient encounter procedure Tonya Bundy [facility] Start: 08-24-2023 End: 08-24-2023 ambulatory MIKE GENAO Not Available Start: 08-19-2023 ambulatory Ric Kerr Facility:[facility] Start: 06-01-2023 ambulatory Mike Meghank Facility :[facility] Start: 05-27-2023 End: 05-27-2023 ambulatory QASIM CHAUDHRY Not Available Start: 05-07-2023 End: 05-07-2023 ambulatory Milla Skinner Other [employer] Other Start: 05-07-2023 Office outpatient vi sit 25 minutes Milla Skinner [facility] Start: 04-19-2023 End: 04-19-2023 ambulatory MIKE ROMEROK Not Available Start: 04-08-2023 End: 04-08-2023 Patient encounter procedure DO Mike Gomezedilbertok Work Phone: [facility] Work Phone: Start: 04-08-2023 End: 04-08-2023 ambulatory DO Mike Gomezedilbertok Work Phone: [facility] Work Phone: Start: 03-08-2023 End: 03-08-2023 Patient encounter procedure DO Mike Gomezedilbertok Work Phone: [facility] Work Phone: Start: 03-08-2023 End: 03-08-2023 ambulatory DO Mike Gomezedilbertok Work Phone: [facility] Work Phone: Start: 09-02-2022 End: 09-02-2022 Patient encounter procedure Tonya CooneyKellie Longflor [facility] Start: 08-26-2022 ambulatory FRANCIS HOLDEN Facility :[facility] Start: 12-07-2021 End: 12-07-[address] DOCTOR GOMES Facility:[facility] Start: 10-07-2021 End: 10-07-2021 ambulatory Heather Mayra Other [employer] Other Start: 10-07-2021 Office outpatient vi sit 15 minutes Heather Mayra [facility] Procedures Date Procedure Procedure Detail Performing Clinician Start: 10-07-2021 Piperacillin/tazobactam Heather Mayra Other Start: 01-23-2015 Colonoscopy Ritchie Mo rris [employer] Work Phone: Start: 05-23-2013 Cysto, UD, B/L RG Tonya Lue Bladder Sling 1 Tonya Lue Comment on above: Dr. Graham Cholecystectomy Tonya Lue Hysterectomy Tonya Lue Knee region structur e (body structure) Tonya Lue Comment on above: B/L Lumbar (qualifier value) Sulma hy Lue Plan of Treatment Date Care Activity Detail Author Start: 02-28-2025 Medicare Annual Wellness (AWV) Medicare Annual Wellness (AWV) [facility] Start: 01-23-2025 Screening for malign ant neoplasm of colon [facility] Start: 08-23-2024 Medicare Annual Wellness (AWV) Medicare Annual Wellness (AWV) [facility] Start: 06-27-2024 End: 06-27-2024 Patient encounter procedure 06/27/2024 10:30 AM EDT Office Visit [facility] [address] [address] Mike Genao, DO [address] [place] [address] [facility] Start: 05-01-2024 End: 02-28-2025 CBC W Auto Differential panel - Blood CBC and differential Lab Routine Iron deficiency anemia, unspecified iron deficiency anemia type Expected: 05/01/2024 (Approximate), Expires: 02/28/2025 [facility] Work Phone: Comment on above: Expected: 05/01/2024 (Approximate), Expires: 02/28/2025 Start: 05-01-2024 End: 02-28-2025 Iron and Iron binding capacity panel - Serum or Plasma Iron and TIBC Lab Routine Iron deficiency anemia, unspecified iron deficiency anemia type Expected: 05/01/2024 (Approximate), Expires: 02/28/2025 [facility] Comment on above: Expected: 05/01/2024 (Approximate), Expires: 02/28/2025 Start: 04-11-2024 End: 04-11-2024 Patient encounter procedure 04/11/2024 10:00 AM EST Office Visit [facility] [address] [place] [address] Mike Genao, DO [address] [place] [address] [facility] Start: 02-29-2024 End: 05-29-2024 DBT Breast - bilateral screening Bilateral screening mammogram with tomosynthesis Imaging Routine Encounter for screening mammogram for malignant neoplasm of breast Expected: 02/29/2024 (Approximate), Expires: 05/29/2024 [facility] Comment on above: Expected: 02/29/2024 (Approximate), Expires: 05/29/2024 Start: 02-29-2024 End: 02-28-2025 DXA Skeletal system Views for bone density DEXA bone density Imaging Routine Age-related osteoporosis without current pathological fracture ([facility]) Expected: 02/29/2024, Expires: 02/28/2025 [facility] Comment on above: Expected: 02/29/2024 , Expires: 02/28/2025 Start: 02-29-2024 End: 02-29-2024 Patient encounter procedure 02/29/2024 10:00 AM EST Office Visit [facility] [address] [place] [address] Mike Genao DO [address] [place] [address] [facility] Start: 02-23-2024 End: 05-25-2024 25-hydroxyvitamin D3 [Mass/volume] in Serum or Plasma Vitamin D 25 hydroxy Total Lab Routine Low vitamin D level Expected: 02/23/2024 (Approximate), Expires: 05/25/2024 [facility] Comment on above: Expected: 02/23/2024 (Approximate), Expires: 05/25/2024 Start: 02-23-2024 End: 05-25-2024 CBC W Auto Differential panel - Blood CBC and differential Lab Routine Iron deficiency anemia, unspecified iron deficiency anemia type Expected: 02/23/2024 (Approximate), Expires: 05/25/2024 [facility] Comment on above: Expected: 02/23/2024 (Approximate), Expires: 05/25/2024 Start: 02-23-2024 End: 05-25-2024 Iron and Iron binding capacity panel - Serum or Plasma Iron and TIBC Lab Routine Iron deficiency anemia, unspecified iron deficiency anemia type Expected: 02/23/2024 (Approximate), Expires: 05/25/2024 [facility] Comment on above: Expected: 02/23/2024 (Approximate), Expires: 05/25/2024 Start: 11-28-2023 Influenza vaccination Influenza Vacc ine (#1) [facility] Start: 11-23-2023 End: 11-22-2024 CT Chest for screening WO contrast CT lung screening low dose Imaging Routine Tobacco abuse Nicotine dependence, cigarettes, uncomplicated Expected: 11/23/2023, Expires: 11/22/2024 [facility] Work Phone: Comment on above: Expected: 11/23/2023 , Expires: 11/22/2024 Start: 1990 Screening for malign ant neoplasm of breast Mammogram [facility] Start: 1950 Screening for malign ant neoplasm of colon [facility] 25-hydroxyvitamin D3 [Mass/volume] in Serum or Plasma Vitamin D 25 hydroxy Total Lab Routine Age-related osteoporosis without current pathological fracture (CMS/HCC) Need for immunization against influenza Medicare annual wellness visit, subsequent ACP (advance care planning) Coronary artery calcification (CMS/HCC) Tobacco use disorder, severe, dependence Iron deficiency Iron deficiency anemia, unspecified iron deficiency anemia type Atherosclerosis of aorta (CMS/HCC) Depression with anxiety Simple chronic bronchitis (CMS/HCC) Fatty liver Atherosclerosis of abdominal aorta (CMS/HCC) Smokers' cough (CMS/HCC) Encounter for screening mammogram for malignant neoplasm of breast Vitamin D deficiency Ordered: 02/29/2024 [facility] Comment on above: Ordered: 02/29/2024 CBC W Auto Different ial panel - Blood CBC and differential Lab Routine Iron deficiency anemia, unspecified iron deficiency anemia type Ordered: 02/29/2024 [facility] Comment on above: Ordered: 02/29/2024 Comprehensive metabo lic 2000 panel - Serum or Plasma Comprehensive metabolic panel Lab Routine Iron deficiency anemia, unspecified iron deficiency anemia type Ordered: 02/29/2024 [facility] Comment on above: Ordered: 02/29/2024 Thyrotropin [Units/volume] in Serum or Plasma TSH Lab Routine Hair loss Ordered: 02/29/2024 [facility] Comment on above: Ordered: 02/29/2024 Immunizations Immunization Date Immunization Notes Care Provider Keith saba 02-29-2024 Seasonal trivalent influenza vaccine, adjuvanted, preservative free Ritchie Fernandez [employer] Work Phone: [facility] 12-30-2022 Influenza, Seasonal, Quadrivalent, Adjuvanted Ritchie Fernandez [employer] Work Phone: [facility] 12-30-2022 influenza virus vacc ine, unspecified formulation Ritchie Fernandez [employer] Work Phone: [facility] 02-25-2022 influenza virus vacc ine, unspecified formulation Tonya Bundy [facility] 02-25-2022 influenza, injectabl e, quadrivalent, preservative free Ritchie Guerrero [employer] Work Phone: [facility] 02-28-2021 SARS-CoV-2 (COVID-19 ) Ad26 vaccine, recombinant Tonya Lue [facility] 02-13-2021 influenza virus vacc ine, unspecified formulation Tonya Lue [facility] 02-13-2021 influenza, high dose seasonal, preservative-free Ritchie Guerrero [employer] Work Phone: [facility] 02-13-2021 Influenza, Seasonal, Quadrivalent, Adjuvanted Ritchie Guerrero [employer] Work Phone: [facility] 07-06-2020 SARS-CoV-2 (COVID-19 ) mRNA-1273 vaccine Tonya Lue [facility] 06-27-2020 SARS-CoV-2 (COVID-19 ) Ad26 vaccine, recombinant Tonya Lue [facility] 06-08-2020 SARS-CoV-2 (COVID-19 ) mRNA-1273 vaccine Tonya Lue [facility] 05-27-2020 SARS-CoV-2 (COVID-19 ) Ad26 vaccine, recombinant Tonya Lue [facility] 02-01-2020 influenza virus vacc ine, unspecified formulation Tonya Lue [facility] 02-01-2020 Seasonal trivalent influenza vaccine, adjuvanted, preservative free Ritchie Guerrero [employer] Work Phone: [facility] 12-27-2018 influenza virus vacc ine, unspecified formulation Tonya Lue [facility] 12-27-2018 influenza, seasonal, injectable, preservative free Ritchie Fernandez [employer] Work Phone: [facility] 11-08-2017 pneumococcal polysaccharide vaccine, 23 valent Tonya Lue [facility] 11-25-2016 influenza virus vacc ine, unspecified formulation Tonya Lue [facility] 11-25-2016 influenza, high dose seasonal, preservative-free Ritchie Fernandez [employer] Work Phone: [facility] 11-25-2016 influenza, injectabl e, quadrivalent, preservative free Ritchie Fernandez [employer] Work Phone: [facility] 01-20-2016 influenza virus vacc ine, unspecified formulation Tonya Luflor [facility] 01-20-2016 influenza, high dose seasonal, preservative-free Ritchie Fernandez [employer] Work Phone: [facility] 05-17-2015 pneumococcal conjuga te vaccine, 13 valent Ritchie Fernandez [employer] Work Phone: [facility] 02-08-2015 DTP-Haemophilus influenzae type b conjugate vaccine Ritchie Fernandez [employer] Work Phone: [facility] 02-08-2015 tetanus toxoid, redu herbert diphtheria toxoid, and acellular pertussis vaccine, adsorbed Tonya Lue [facility] 01-23-2015 seasonal influenza, intradermal, preservative free Ritchie Fernandez [employer] Work Phone: [facility] 12-11-2013 seasonal influenza, intradermal, preservative free Ritchie Fernandez [employer] Work Phone: [facility] 10-09-2013 zoster vaccine, live Ritchie Fernandez [employer] Work Phone: [facility] 04-10-2013 seasonal influenza, intradermal, preservative free Ritchie Fernandez [employer] Work Phone: [facility] 02-03-2012 seasonal influenza, intradermal, preservative free Ritchie Fernandez [employer] Work Phone: [facility] 09-12-2011 haemophilus influenz ae type b conjugate and Hepatitis B vaccine Ritchie Guerrero [employer] Work Phone: [facility] 01-13-2011 seasonal influenza, intradermal, preservative free Ritchie Fernandez [employer] Work Phone: [facility] 09-01-2006 haemophilus influenz ae type b conjugate and Hepatitis B vaccine Ritchie Guerrero [employer] Work Phone: [facility] 05-06-2006 haemophilus influenz ae type b conjugate and Hepatitis B vaccine Ritchie Guerrero [employer] Work Phone: [facility] Payers Date Payer Category Payer Self-pay [id number] 2022 Private Health Insurance [employer] [facility] [id number] 2022 Unknown AAR AAR [id number] 2022-Present [address] [place] [address] [id number] 2015 Medicare [id number] 1959 Medicare [id number] [id number] 1959 Unknown [id number] 2.16.840.1.072241.19 1950 Unknown [id number] 2.16.840.1.732724.3.579.2 .593 1950 Unknown [id number] 2.16.840.1.411760.3.579.2 .593 1950 Unknown [id number] 2.16.840.1.596922.3.579.2 .1259 1950 Unknown [id number] 2.16.840.1.660419.3.579.2 .1259 1950 Unknown [id number] 2.16.840.1.870017.3.579.2 .1259 1950 Unknown [id number] 2.16.840.1.813719.3.579.2 .1259 1950 Unknown [id number] 2.16.840.1.283708.3.579.2 .1259 1950 Unknown [id number] 2.16.840.1.912392.3.579.2 .1259 1950 Unknown [id number] 2.16.840.1.582679.3.579.2 .1259 1950 Unknown [id number] 2.16.840.1.801954.3.579.2 .1259 1950 Unknown [id number] 2.16.840.1.967636.3.579.2 .727 1950 Unknown [id number] 2.16.840.1.522852.3.579.2 .727 1950 Unknown [id number] 2.16.840.1.420406.3.579.2 .727 Unknown Kristin BC/BS [id number] Unknown [id number] 2.16.840.1.153227.3.579.2 .531 Unknown [id number] 2.16.840.1.973328.3.579.2 .531 Unknown [id number] 2.16.840.1.997817.3.579.2 .531 Unknown [id number] 2.16.840.1.915855.3.579.2 .531 Unknown [id number] 2.16.840.1.014010.3.579.2 .531 Social History Date Type Detail Facility Start: 09-03-2022 End: 02-29-2024 Sex Assigned At [facility] Start: 09-02-2022 Tobacco smoking status Light t obacco smoker (finding) [facility] Tobacco smoking status Smoker (finding) [facility] Tobacco smoking status Never [facility] Start: 1950 Sex Assigned At Female F [facility] Start: 09-03-2023 Tobacco smoking status Heavy t obacco smoker (finding) [facility] Start: 03-29-1969 Tobacco smoking stat [facility] Smokes tobacco daily [facility] Start: 03-29-1969 History of tobacco use Cigarette Smo ker [facility] Start: 02-24-2023 End: 02-29-2024 Cigarettes smoked current (pack per day) - Reported 1 [facility] Start: 02-24-2023 Tobacco use and exposure Smokeless tobacco non-user [facility] How often do you hav e 6 or more drinks on 1 occasion? Never [facility] Start: 02-24-2023 Tobacco Comment > How soon aft er you wake up do you smoke your first cigarette: After 60 [id number] cigs/ day [facility] Start: 1950 Sex assigned at Not on file [facility] Functional Status Date Assessment Result Facility 09-03-2023 Functional Status N/A [facility] 09-02-2022 Functional Status N/A [facility] Clinical Notes 10-07-2021 to 04-11-2024 Mike Mike Oleg, DO - 04/11/2024 10:00 AM Татьяна Fernandez, [employer] - 02/29/2024 10:00 AM Татьяна Fernandez, [employer] - 11/23/2023 10:00 AM EDT Note Date & Type Note Facility 04-11-2024 History of Present illness Narrative Images from the original note were not included. Christal Ervin is a 73 y.o. female presents with chief complaint of Six-week office visit (Started on Ferrous Gluconate at last office visit. Labs ordered ptv.) HPI: HPI Labs completed 04/05 At last visit, Her iron saturation has improved from 5 percent to 15 percent, indicating a positive response to the iron infusion. She refuses colonoscopy, EGD, or repeat IV iron infusion. She has recurrent hypocalcemia with a low vitamin D 10/11/2023- 9.5 04/05/2024- 8.3 Liver enzyme AST 10 - 35 U/L 43 High 44 High 29 ALT 6 - 29 U/L 29 32 High 20 R factor calculated at 1.[address] 12/01/2023- Lung-RADS: LUNGRADS 2 - Benign History of Present Illness The patient presents for evaluation of iron deficiency, psoriasis, hypoglycemia, edema, smoking cessation, panic attacks, and fatty liver. She has been diagnosed with iron deficiency but has not yet undergone a colonoscopy. She is currently on an alternate-day regimen of iron supplements. She reports a significant exacerbation of her psoriasis, which she finds distressing. She has not initiated any treatment due to concerns about potential side effects. She recalls a previous episode where her psoriasis resolved following treatment with a medication starting with the letter M at [facility], which she believes may have been magnesium. She also reports that her psoriasis tends to bleed after hot showers. She experienced an episode of hypoglycemia, with a blood glucose level of 51, which was managed by consuming toast. She is not currently on any antidiabetic medications. She reports severe edema in her feet, which she attributes to her kidney condition. 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 She also reports balance issues and difficulty walking, necessitating the use of a grocery cart for support. She has significantly reduced her smoking habit and is seeking a refill of her inhaler prescription. She is under the care of a psychiatrist and is on medication for panic attacks. She experienced an isolated episode of double vision during a panic attack, which was managed with Xanax. She has since reduced her Xanax dosage from three times daily to as needed. She also takes Remeron at night, which she reports as being effective. She has been diagnosed with fatty liver disease and does not consume alcohol. SOCIAL HISTORY The patient has cut down on smoking and makes her own cigarettes. FAMILY HISTORY The patient's sister had lymphedema. MEDICATIONS Current: iron, Xanax, Remeron, Synthroid, torsemide, tramadol 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 Elevated liver enzymes Renal cyst 10/21/2022 Ureteral stricture 10/21/2022 SURGICAL HISTORY: Past Surgical History: Procedure Laterality Date CATARACT EXTRACTION Bilateral 2020 CYSTOSCOPY GALLBLADDER SURGERY 1970 KNEE SURGERY Bilateral 2004 LUMBAR SPINE SURGERY 1992 TOTAL VAGINAL HYSTERECTOMY 1989 SOCIAL HISTORY: Social History Tobacco Use Smoking status: Every Day Current packs/day: 1.00 Average packs/day: 1 pack/day for 55.0 years (55.0 ttl pk-yrs) Types: Cigarettes Start date: 1969 Smokeless tobacco: Never Tobacco comments: > How soon after you wake up do you smoke your first cigarette: After 60 minutes 11-20 cigs/ day Substance Use Topics Drug use: Never Depression: Not at risk (02/29/2024) PHQ-2 PHQ-2 Score: 0 FAMILY HISTORY: Family History Problem Relation Name Age of Onset Stomach cancer Mother Hypertension Mother Heart disease Mother Cancer Mother Hypertension Father No Known Problems Sister Cancer Brother from cancer Crohn's disease Other MEDICATIONS: Current Outpatient Medications Medication Instructions ALPRAZolam (XANAX) 0.5 mg, 2 times daily PRN atorvastatin (LIPITOR) 10 mg, Oral, Daily Pcrbtvj-Efjjlxloaho-Jhwxjtlavo (Breztri Aerosphere) 160-9-4.8 MCG/ACT aerosol 160 mcg, Inhalation, Every 12 hours RT calcium carbonate (CALCIUM 600) 600 mg, Oral, 2 times daily with meals cholecalciferol (VITAMIN D-3) 50 mcg, Oral, Daily denosumab (PROLIA) 60 mg, Subcutaneous, Every 6 months, To be given at [facility] ferrous gluconate (FERGON) 324 mg, Oral, Every other day mirtazapine (REMERON) 15 mg, Nightly ALLERGIES: Allergies Allergen Reactions Codeine GI intolerance PHYSICAL EXAM: Visit Vitals Smoking Status Every Day BP Readings from Last 3 Encounters: 02/29/24 130/70 11/23/23 122/60 08/24/23 130/78 Wt Readings from Last 3 Encounters: 02/29/24 165 lb 11/23/23 163 lb 08/24/23 163 lb Physical Exam Physical Exam Heart sounds are normal. Spleen feels normal. Results Laboratory Studies Iron levels have improved. Platelets are slightly low. Liver enzymes look a little bit better. Hemoglobin is a lot better. Vitamin D is 27. ASSESSMENT AND PLAN: Assessment & Plan 1. Iron Deficiency. Her iron levels have shown improvement, likely due to her adherence to the prescribed iron supplementation regimen. She is advised to continue taking iron every other day. 2. Psoriasis. She has been provided with samples of Otezla starter packs for her psoriasis. The potential side effects, including depression and mood changes, were discussed. She is instructed to follow the dosing guide provided in the starter pack. If she experiences significant side effects, she should discontinue the medication and notify the office. 3. Hypoglycemia. She reported a recent episode of low blood sugar (51 mg/dL) and is not currently on any diabetes medication. She is advised to monitor her blood sugar levels closely and consume a small snack if she feels symptomatic. Further evaluation for potential underlying causes, such as insulinoma, will be considered if symptoms persist. 4. Edema. She reports significant swelling in her feet. Differential diagnosis includes chronic venous insufficiency, lymphedema, or heart failure. She is advised to elevate her feet when possible and reduce sodium intake. Further evaluation will be conducted if symptoms do not improve. 5. Smoking Cessation. She has cut down on smoking but reports she has no more inhalers. She is advised to continue reducing her smoking and consider using nicotine replacement therapy or prescription medications to aid in cessation. 6. Panic Attacks. She is currently taking Xanax as needed for panic attacks and reports it is effective. She is advised to continue her current regimen and follow up with her psychiatrist for ongoing management. 7. Fatty Liver. Her liver enzymes have shown some improvement. She is advised to maintain a healthy diet and exercise regularly to manage her fatty liver disease. Further monitoring of liver function will be conducted. Follow-up The patient will follow up in 2 months. Diagnosis Plan 1. Hypocalcemia 2. Chronic obstructive pulmonary disease, unspecified (CMS/HCC) 3. Low vitamin D level 4. Iron deficiency 5. Thrombocytopenia (CMS/HCC) 6. Double vision documented in this encounter [facility] 02-29-2024 History of Present illness Narrative Images from the original note were not included. Christal Ervin is a 73 y.o. female presents with chief complaint of Medicare Annual Wellness Visit Subsequent, Three-month ov, and Iron infusion (Would like to discuss/) HPI: HPI Lung CT done on 12/01/2023. History of Present Illness The patient is a female with a history of iron deficiency anemia. She received an iron infusion during her last visit. She experienced a panic attack after her last iron infusion, which led to an emergency room visit. Despite this, she did not return for a second infusion. She reports no longer craving ice and has not taken oral iron supplements for a while due to constipation issues. She reports no presence of blood in her stool. She is due for a blood test to check her calcium levels as she is scheduled for an osteoporosis injection. Her calcium levels are now within the normal range. She was unable to have her vitamin D levels checked due to insurance issues. She has previously had a bone density test and is due for another next week. She is currently on atorvastatin for cholesterol management. She has a diseased kidney and has had an echocardiogram, which showed a thickening on the left side of her heart. She has a history of psoriasis and has noticed some hair loss. She reports no current issues with constipation or chest pain. She experienced a brief episode of double vision a few weeks ago, which lasted about 10 minutes and resolved without any other symptoms. She has had cataract surgery in both eyes and does not currently wear glasses, except for reading. She has seen a neurologist in the past due to suspected vertigo. She has a handicap sticker due to balance issues and uses a cart for support. She has a living will and power of litigation attorney in place. She recently received a flu shot and has had one shingles vaccine. SOCIAL HISTORY She smokes. CURRENT PCP/CARE TEAM: Patient Care Team: Mike Genao, DO as PCP - General (Internal Medicine) Mike Genao DO as PCP - ACO Reach Over the past 2 weeks, how often have you been bothered by any of the following problems? Little interest or pleasure in doing things: Not at all Feeling down, depressed, or hopeless: Not at all Patient Health Questionnaire-2 Score: 0 Mosquera Fall Risk History of Falling, Immediate or Within 3 Months: No Health Risk Assessment Form Do you need help eating, bathing, using the toilet, dressing, or getting around your home?: No Can you prepare your own meals?: Yes Can you do your own housework without help?: Yes Can you shop for groceries or clothes without help?: Yes Do you exercise for about 20 minutes 3 or more days a week?: No How confident are you that you can control and manage most of your health problems?: Very confident Can you mange your money, credit cards and accounts, pay bills and taxes?: No Cognitive Screening Three Word Registration: Apple, Watch, Lucy Clock Drawing: Normal Clock - 2 Three Word Recall: All 3 words correct - 3 Total Score (0-5 Points): 5 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 Elevated liver enzymes Renal cyst 10/21/2022 Ureteral stricture 10/21/2022 SURGICAL HISTORY: Past Surgical History: Procedure Laterality Date CATARACT EXTRACTION Bilateral 2020 CYSTOSCOPY GALLBLADDER SURGERY 1971 KNEE SURGERY Bilateral 2004 LUMBAR SPINE SURGERY 1992 TOTAL VAGINAL HYSTERECTOMY 1989 SOCIAL HISTORY: Social History Tobacco Use Smoking status: Every Day Current packs/day: 1.00 Average packs/day: 1 pack/day for 54.9 years (54.9 ttl pk-yrs) Types: Cigarettes Start date: 1969 Smokeless tobacco: Never Tobacco comments: > How soon after you wake up do you smoke your first cigarette: After 60 minutes 11-20 cigs/ day Substance Use Topics Drug use: Never Depression: Not at risk (02/29/2024) PHQ-2 PHQ-2 Score: 0 FAMILY HISTORY: Family History Problem Relation Name Age of Onset Stomach cancer Mother Hypertension Mother Heart disease Mother Cancer Mother Hypertension Father No Known Problems Sister Cancer Brother from cancer Crohn's disease Other MEDICATIONS: Current Outpatient Medications Medication Instructions ALPRAZolam (XANAX) 0.5 mg, Oral, 3 times daily PRN, [facility] atorvastatin (LIPITOR) 10 mg, Oral, Daily Xxwygly-Beqjkwqxmrv-Qjoknlfopb (Breztri Aerosphere) 160-9-4.8 MCG/ACT aerosol 160 mcg, Inhalation, Every 12 hours RT calcium carbonate (CALCIUM 600) 600 mg, Oral, 2 times daily with meals cholecalciferol (VITAMIN D-3) 50 mcg, Oral, Daily denosumab (PROLIA) 60 mg, Subcutaneous, Every 6 months, To be given at [facility] mirtazapine (REMERON) 15 mg, Oral, Nightly ALLERGIES: Allergies Allergen Reactions Codeine GI intolerance PHYSICAL EXAM: Visit Vitals Smoking Status Every Day BP Readings from Last 3 Encounters: 11/23/23 122/60 08/24/23 130/78 05/27/23 144/72 Wt Readings from Last 3 Encounters: 11/23/23 163 lb 08/24/23 163 lb 05/27/23 166 lb Physical Exam Constitutional: Comments: Negative pull test. No rash or lesion. Nonfocal hair loss Cardiovascular: Rate and Rhythm: Normal rate and regular rhythm. Heart sounds: Normal heart sounds. Pulmonary: Effort: Pulmonary effort is normal. Breath sounds: Decreased breath sounds present. Abdominal: General: Bowel sounds are normal. Palpations: Abdomen is soft. Neurological: Mental Status: She is alert. Cranial Nerves: No cranial nerve deficit, dysarthria or facial asymmetry. Motor: Motor function is intact. Comments: Exam limited- patient reported she had to go when attempting to do full neurologic exam so abbreviated. Intact fine motor to upper extremities. Psychiatric: Attention and Perception: Attention normal. Mood and Affect: Mood is anxious. Affect is flat. Speech: Speech normal. Behavior: Behavior normal. Cognition and Memory: Cognition normal. Physical Exam Clear lungs. Results Laboratory Studies Calcium level is on the normal side of normal. Iron saturation increased from 5% to 15%. ASSESSMENT AND PLAN: Diagnosis Plan 1. Medicare annual wellness visit, subsequent 2. Age-related osteoporosis without current pathological fracture (CMS/HCC) calcium carbonate (Calcium 600) 600 MG tablet DEXA bone density 3. Need for immunization against influenza Flu vaccine, trivalent, adjuvanted, preservative free 4. ACP (advance care planning) 5. Coronary artery calcification (CMS/HCC) 6. Tobacco use disorder, severe, dependence 7. Iron deficiency 8. Iron deficiency anemia, unspecified iron deficiency anemia type ferrous gluconate (Fergon) 324 (38 Fe) MG tablet CBC and differential Iron and TIBC CBC and differential Iron and TIBC 9. Atherosclerosis of aorta (CMS/HCC) atorvastatin (Lipitor) 10 MG tablet 10. Depression with anxiety 11. Simple chronic bronchitis (CMS/HCC) 12. Fatty liver 13. Atherosclerosis of abdominal aorta (CMS/HCC) 14. Smokers' cough (CMS/HCC) 15. Encounter for screening mammogram for malignant neoplasm of breast Bilateral screening mammogram with tomosynthesis Assessment & Plan 1. Iron deficiency anemia. Her iron saturation has improved from 5 percent to 15 percent, indicating a positive response to the iron infusion. However, her blood counts were not assessed due to an incorrect tube being used. A prescription for ferrous gluconate will be provided, to be taken every other day. She is advised to continue with her calcium carbonate regimen. A CMP will be ordered. She refuses colonoscopy, EGD, or repeat IV iron infusion. She will get CBC done- Not drawn at previous visit for some reason. 2. Osteoporosis. Her calcium levels are now within the normal range. She is advised to continue with her calcium carbonate regimen. She will need to have her calcium levels rechecked before receiving her osteoporosis shot. Recheck calcium before prolia. 3. Panic disorder. She experienced chest pain and panic symptoms following her iron infusion, which led to an emergency room visit. She is advised to continue her current medication regimen for panic attacks and will discuss her symptoms with her psychiatrist on . 4. Hyperlipidemia. A refill for her atorvastatin will be sent to the pharmacy. She is advised to take it at bedtime for better efficacy. 5. Double vision. She experienced an episode of double vision lasting about 10 minutes, which resolved on its own. An eye examination is recommended to rule out any ocular muscle problems.I have clinical concerns over diplopia. Differential includes inflammatory disease such as GCA/myasthenia gravis. GCA unlikely since no headaches or other symptoms. Consider myasthenia. Consider ischemia- Would like a MRI to evaluate vestibular basilar system. However, patient is limited due to severe anxiety. She refuses MRI. She historically has refused MRI. She refuses any further evaluation but will open to further discussion of this in 6 weeks. 6. MW Patient here for annual Medicare Wellness visit. Demographics were updated. Self-assessment was completed. Past medical, family, and social history were updated. The medication list, including supplements being taken, was updated. A list of other current medical providers was established/updated. Time was spent discussing health maintenance issues, ordering proper testing, and a schedule was provided regarding recommended screening. We discussed safety issues and fall risk. Depression screening was completed and addressed. Fall screening was completed and addressed. Cognitive function was assessed by direct observation and assessment of ability to perform ADL's and IADL's was done. We also discussed Advanced Directives and code status. The current BMI was provided along with an education packet regarding healthy living and maintenance of a healthy weight. The BMI will continue to be monitored at routine office visits as well. Major risk factors for chronic disease including family history were discussed and a list was provided with the care plan. We discussed healthy diet and eating. Encouraged adherence to the Mediterranean diet which is high in fruit, vegetables, fish, and fiber. Avoid processed foods and sweets. Avoid red meat. Obtain at least 150 minutes of exercise weekly for overall health or as much as able to based on health status. Encouraged RSV vaccine. Has a living will and POA. Wants to be a full code. 7. Coronary Artery Calcification/atherosclerosis No cardiac symptoms 8. Hair loss Nonfocal. Generalized. May be secondary to stress/low iron/ check thyroid. Follow-up Patient is scheduled for a follow-up visit on 04/11/2024 at 10:00 AM. 56 minutes spent on visit documented in this encounter [facility] 11-23-2023 History of Present illness Narrative Images from the original note were not included. Christal Ervin is a 73 y.o. female presents with chief complaint of 3 Month Follow Up HPI: HPI Labs completed ptv History of Present Illness The patient presents for evaluation of multiple medical concerns. She has discontinued her blood pressure medication due to foot swelling, as advised by a nurse during a previous visit. She is concerned about her blood pressure and has been diagnosed with mild left ventricular hypertrophy. She reports feeling weak and unsteady, with difficulty walking, particularly at night. Although she does not experience numbness in her feet, she frequently loses balance. She saw neurologists for this in the past. No clear etiology found although she refused some workup. She also experiences panic attacks, which are unpredictable and cause shaking and further loss of balance. She is scheduled for a Prolia injection on the and is curious about her calcium levels. She does not take calcium supplements but does take vitamins B and D, with the latter being 1000 units. She does not take iron supplements. She has a history of back and knee surgeries and currently experiences nightly back pain, which she manages with Aleve or ibuprofen. She has not tried Tylenol. She reports no abdominal cramping or constipation, although she occasionally takes MiraLAX. She also suffers from psoriasis and has noticed age spots appearing on her skin. 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 Elevated liver enzymes Renal cyst 10/21/2022 Ureteral stricture 10/21/2022 SURGICAL HISTORY: Past Surgical History: Procedure Laterality Date CATARACT EXTRACTION Bilateral 2020 CYSTOSCOPY GALLBLADDER SURGERY 1971 KNEE SURGERY Bilateral 2005 LUMBAR SPINE SURGERY 1992 TOTAL VAGINAL HYSTERECTOMY 1989 SOCIAL HISTORY: Social History Tobacco Use Smoking status: Every Day Current packs/day: 1.00 Average packs/day: 1 pack/day for 54.7 years (54.7 ttl pk-yrs) Types: Cigarettes Start date: 1969 Smokeless tobacco: Never Tobacco comments: > How soon after you wake up do you smoke your first cigarette: After 60 minutes 11-20 cigs/ day Substance Use Topics Drug use: Never Depression: Not at risk (08/24/2023) PHQ-2 PHQ-2 Score: 0 FAMILY HISTORY: Family History Problem Relation Name Age of Onset Stomach cancer Mother Hypertension Mother Heart disease Mother Cancer Mother Hypertension Father No Known Problems Sister Cancer Brother from cancer Crohn's disease Other MEDICATIONS: Current Outpatient Medications Medication Instructions ALPRAZolam (XANAX) 0.5 mg, Oral, 3 times daily PRN, [facility] atorvastatin (LIPITOR) 10 mg, Oral, Daily Wkanhcq-Vgdmyfqcjiu-Jeiunhyxmr (Breztri Aerosphere) 160-9-4.8 MCG/ACT aerosol 160 mcg, Inhalation, Every 12 hours RT calcium carbonate (CALCIUM 600) 600 mg, Oral, 2 times daily with meals cholecalciferol (VITAMIN D-3) 50 mcg, Oral, Daily denosumab (PROLIA) 60 mg, Subcutaneous, Every 6 months, To be given at [facility] Infusion Center mirtazapine (REMERON) 15 mg, Oral, Nightly ALLERGIES: Allergies Allergen Reactions Codeine GI intolerance PHYSICAL EXAM: Visit Vitals BP 122/60 (BP Location: Left arm, Patient Position: Sitting) Pulse 103 Ht 5' 4 Wt 163 lb SpO2 97% BMI 27.98 kg/m Smoking Status Every Day BSA 1.83 m BP Readings from Last 3 Encounters: 11/23/23 122/60 08/24/23 130/78 05/27/23 144/72 Wt Readings from Last 3 Encounters: 11/23/23 163 lb 08/24/23 163 lb 05/27/23 166 lb Physical Exam Constitutional: Comments: Defers breast exam Cardiovascular: Rate and Rhythm: Normal rate and regular rhythm. Heart sounds: Normal heart sounds. Comments: Varicose veins bilaterally Pulmonary: Effort: Pulmonary effort is normal. Breath sounds: No decreased air movement. Comments: Barrel chest Abdominal: General: Bowel sounds are normal. Palpations: Abdomen is soft. Musculoskeletal: Cervical back: Neck supple. Right lower leg: No edema. Left lower leg: No edema. Comments: Gait with normal arm swing No tremors Skin: Comments: Psoriatric plaque to left elbow Neurological: General: No focal deficit present. Mental Status: She is alert. Comments: Intact sensation to bilateral feet Psychiatric: Mood and Affect: Mood normal. Physical Exam Lungs are a little bit quiet, maybe a bit of a wheeze here and there, but that goes away when coughing. Vital Signs Blood pressure is 124. Results Laboratory Studies Calcium is on the low end of normal. Vitamin D level was a bit low. Iron is low. Hemoglobin is 10.8. ASSESSMENT AND PLAN: Diagnosis Plan 1. Iron deficiency anemia, unspecified iron deficiency anemia type Handicap Placard Lifetime Ambulatory Referral for Internal Inj 2. Low vitamin D level 3. Age-related osteoporosis without current pathological fracture ([facility]) calcium carbonate (Calcium 600) 600 MG tablet cholecalciferol (Vitamin D-3) 50 MCG (2000 UT) tablet 4. Iron deficiency 5. Fatty liver Handicap Placard Lifetime 6. Generalized atherosclerosis Handicap Placard Lifetime 7. Vitamin B12 deficiency 8. Pure hypercholesterolemia (CMS/HCC) 9. Simple chronic bronchitis (CMS/HCC) Handicap Placard Lifetime 10. Lumbar back pain 11. Tobacco abuse CT lung screening low dose 12. Nicotine dependence, cigarettes, uncomplicated CT lung screening low dose Assessment & Plan 1. Iron Deficiency Anemia. Her blood counts indicate mild anemia with a hemoglobin level of 10.8 (normal range: 12-16). She reports feeling tired and weak, which may be related to her low iron levels. An iron infusion will be arranged at the infusion center, depending on insurance approval. She had severe constipation with oral iron formulations. Blood work will be conducted before her next appointment to reassess her blood counts and iron levels.A colonoscopy and EGD have been suggested to investigate the cause of her low hemoglobin levels, but she is hesitant to undergo these procedures at this time. 2. Vitamin D Deficiency. Her vitamin D levels are slightly below the desired range. She is advised to increase her vitamin D intake to 2000 units per day. Blood work will be conducted before her next appointment to reassess her vitamin D levels. 3. Calcium Deficiency. Her calcium levels are within the normal range but on the lower end. She is advised to start taking at least 600 mg of calcium daily. Blood work will be conducted before her next appointment to reassess her calcium levels. 4. Varicose Veins. She presents with varicose veins in her ankle, which may be contributing to her walking difficulties. No immediate intervention is required, but she is advised to monitor her symptoms. 5. Hypertension. Her blood pressure is currently well-managed at 124. No changes to her current regimen are necessary. 6. Back Pain. She reports ongoing back pain, which may be related to a previous muscle strain or her kidney condition. She is advised to take Tylenol 1000 mg twice daily for pain management. Physical therapy is suggested for her back pain and walking difficulties, but she prefers to manage it with walking as much as she can tolerate. 7. Panic Attacks. She experiences panic attacks and is currently under the care of another doctor for this condition. No changes to her current treatment plan are necessary. 8. Health Maintenance. A lung cancer screening has been ordered. She declines a mammogram due to severe psoriasis. Blood work will be conducted before her next appointment to reassess her blood counts, vitamin D, and iron levels. Follow-up A follow-up appointment is scheduled for 3 months from now. 42 minutes spent on visit documented in this encounter [facility] 09-03-2023 Hospital Discharge instructions Patient Education 09/03/2023 14:39:27 Steps to [...] require a prescription. You can also purchase tpjw-jym-tdvahpt medicines. Medicines may have nicotine in them [...] and encouragement. Call telephone quitlines, such as 2-560-YXBC-NOW, reach out to support groups, or work [...] provider. Document Revised: 03/06/2022 Document Reviewed: 03/06/2022 [employer] Patient Education 2022 [employer]. 09/03/2023 14:05:48 Intravenous Pyelogram Intravenous Pyelogram An [...] including vitamins, herbs, eye drops, creams, and qihe-moh-qhwvhqm medicines. Any problems you or family members [...] The feeling will not last long. A instrument technician will take X-rays. To make the [...] out the dye in your body. Take xqms-eoc-gfssxzx and prescription medicines only as told by [...] you are taking. During the procedure, a instrument technician will insert an IV into one [...] provider. Document Revised: 11/26/2021 Document Reviewed: 04/19/2019 [employer] Patient Education 2022 [employer]. Follow Up Care 06/23/2023 08:39:30 With:Gregor LUIS, KENNEDY Whaley, URO Address: When: Unknown [facility] 05-07-2023 Evaluation note Encounter Date Diagnosis Assessment [...] understanding and is agreeable to treatment plan. [employer] Other [id number] Hospital Discharge instructions Patient Education 09/02/2022 12:09:06 Dietary Guidelines [...] about 300 mg of calcium at each meal.Foods that contain 200 500 mg of calcium a serving include: ?8 oz (237 mL) of milk, kizvafd-chsxqbwniwjb-klrto milk, and calcium- fortifiedfruit juice. Calcium-fortified means that calcium has been [...] the table and allow each person to addhis or her own salt to taste. Use vegetable protein, such as beans, textured vegetable protein (TVP), or tofu, instead of meat inpasta, casseroles, and soups. Meal planning Eat less salt, if told by your dietitian. To do this: ?Avoid eating processed or pre-made food. ?Avoid eating fast food. Eat less animal protein, including cheese, meat, poultry, or fish, if told by your dietitian. To dothis: ?Limit the number of times you have [...] ?Spinach (cooked), rhubarb, beets, sweet potatoes, and Syrian chard. ?Peanuts. ?Potato chips, greek fries, and baked potatoes with skin on. ?Nuts and nut products. ?Chocolate. If you regularly take a diuretic medicine, make sure to eat at least 1 or 2 servings of fruits or vegetables that are high in potassium each day. These include: ?Avocado. ?Banana. ?Harlan, prune, carrot, or tomato juice. ?Baked potato. [...] taking daily supplements. You may be told thefollowing depending on your health and the cause of your kidney stones: ?Not to take supplements with vitamin C. ?To take a calcium supplement. ?To take a daily probiotic supplement. ?To take other supplements such as magnesium, fish oil, or vitamin B6. Take qbbi-taj-fqgesvq and prescription medicines only as told by [...] Casseroles. Pizza. Lasagna. Frozen meals. Potato chips. Sami fries. The items listed above may not be a complete list of foods and beverages you should limit. Contact a dietitian for more information. What foods should I avoid? Talk to your dietitian about specific foods you should avoid based on the type of kidney stones youhave and your overall health. Fruits Grapefruit. The item listed above may not be a complete list of foods and beverages you should avoid. Contact adietitian for more information. Summary Kidney stones are [...] provider. Document Revised: 11/24/2021 Document Reviewed: 11/24/2021 [employer] Patient Education 2022 [employer]. Follow Up Care 03/04/2021 10:12:25 With:Gregor LUIS, Tonya Vo, URL, URO Address: When: Unknown [facility] 07-12-2022 Evaluation note* Encounter Date Diagnosis Assessment Notes Treatment Notes Treatment Clinical Notes Sep, Fever, unspecified fever cause (ICD-10 [...] R30.0) Sep, Hematuria, unspecified (ICD-10 - R31.9) [employer] Other Evaluation + Plan note No data available for this section [facility] noteNo assessment information available [facility] Work Phone: Evaluation note* Diagnosis Medicare annual wellness visit, subsequent- Primary Age-related osteoporosis without current pathological fracture (CMS/HCC) Need for immunization against influenza Need for prophylactic vaccination and inoculation against influenza ACP (advance care planning) Other specified counseling Coronary artery calcification (CMS/HCC) Tobacco use disorder, severe, dependence Iron deficiency Disorders of iron metabolism Iron deficiency anemia, unspecified iron deficiency anemia type Atherosclerosis of aorta (CMS/HCC) Atherosclerosis of aorta Depression with anxiety Dysthymic disorder Simple chronic bronchitis (CMS/HCC) Simple chronic bronchitis Fatty liver Other chronic nonalcoholic liver disease Atherosclerosis of abdominal aorta (CMS/HCC) Atherosclerosis of aorta Smokers' cough (CMS/HCC) Simple chronic bronchitis Encounter for screening mammogram for malignant neoplasm of breast Vitamin D deficiency Hair loss Unspecified alopecia Diplopia documented [facility] Diagnosis Iron deficiency anemia, unspecified iron deficiency anemia type- Primary Low vitamin D level Age-related osteoporosis without current pathological fracture (CMS/HCC) Iron deficiency Disorders of iron metabolism Fatty liver Other chronic nonalcoholic liver disease Generalized atherosclerosis Generalized and unspecified atherosclerosis Vitamin B12 deficiency Other B-complex deficiencies Pure hypercholesterolemia (CMS/HCC) Pure hypercholesterolemia Simple chronic bronchitis (CMS/HCC) Simple chronic bronchitis Lumbar back pain Lumbago Tobacco abuse Tobacco use disorder Nicotine dependence, cigarettes, uncomplicated documented in [facility] encounter [facility]* Diagnosis Hypocalcemia- Primary Chronic obstructive pulmonary disease, unspecified (CMS/HCC) Low vitamin D level Iron deficiency Disorders of iron metabolism Thrombocytopenia (CMS/HCC) Unspecified thrombocytopenia Double vision Diplopia [facility] Narrative - Reported* Type Description Date Medical History Left kidney mass Medical History COPD (chronic obstructive pulmon gurpreet disease) Medical History Anxiety Medical History Unspecified osteoarthritis, unsp ecified site Medical History Psoriasis Surgical History Open lyn Surgical History Back surgery Surgical History Bilateral knee surgery Surgical History Hysterectomy Hospitalization History See past surgical hx [employer] Other Progress note No data available for this section [facility] Summary Purpose Family History No Family History Records FoundNo Family History Records Found No data available for this section No Family History Records FoundNo Family History Records FoundNo Family History Records Found Advance Directives Advance Directive Response Recorded Date/ Time Advance Directives No July 31, 2019 9:58am Chief Complaint and Reason for Visit Chief Complaint i70.91 h81.4 Chief Complaint i70.91 h81.4 r00.2 Reason for Referral Specialty Diagnoses / Procedures Referred By Contac t Referred To Contact Radiology Diagnoses Tobacco abuse Nicotine dependence, cigarettes, uncomplicated Procedures CT lung screening low dose Ritchie Fernandez NP [address] [place] [address] [facility] [address] [place] [address] Referral ID Status Reason Start Date Expiration Date V isits Requested Visits Authorized [id number] Authorized 11/23/2023 05/21/2024 1 1 Specialty Diagnoses / Procedures Referred By Contac t Referred To Contact Infusion Clinic Diagnoses Iron deficiency anemia, unspecified iron deficiency anemia type Ritchie Fernandez NP [address] [place] [address] [facility] Scheduling [address] [place] [address] Referral ID Status Reason Start Date Expiration Date Visits Requested Visits Authorized [id number] Pending Review Perform Procedure 11/23/2023 05/21/2024 1 1 Additional Source Comments INFORMATION SOURCE (unrecogn ized section and content) DATE CREATED AUTHOR 04/18/2021 [facility] Me dical Specialist DATE CREATED AUTHOR AUTHOR'S ORGANIZ ATION 09/07/2022 [facility] DATE CREATED AUTHOR AUTHOR'S ORGANIZ ATION 12/30/2023 [facility] DATE CREATED AUTHOR AUTHOR'S ORGANIZ ATION 04/14/[address] [facility] dical Specialists EPIC DATE CREATED AUTHOR AUTHOR'S ORGANIZ ATION 04/18/2024 [facility] REASON FOR VISIT (unrecogniz ed section and content) Reason Comments Medicare Annual Wellness Visit Subsequen t Three-month ov Iron infusion Would like to discus s Reason Comments 3 Month Follow Up Reason Comments Six-week office visit Started on Ferrous Gluconate at last office visit. Labs ordered ptv. Patient Care team informatio n (unrecognized section and content) Team Status: Active Member Role Status Dates Mike Genao DO Primary Care Provider Active Team Status: Inactive Member Role Status Dates TATIANNA Penaloza Attending Provider Krystal Genao DO Primary Care Provider Active Team Status: Inactive Member Role Status Dates Mike Genao DO Primary Care Provider, Attending Flora jennings Active Tile Decorator Relationship Specialty Start Date End Date Mike Genao DO [address] [place] [address] PCP - ACO Reach 08/20/22 Mike Genao DO [address] [place] [address] PCP - General Internal Medicine 08/28/22 Tonya Bundy MD [address] [place] [id number] Referring Physician Urology 02/29/24 Tile Decorator Relationship Specialty Start Date End Date Mike Genao DO [address] [facility] [place] [address] PCP - ACO Reach 08/20/22 Mike Genao DO [address] [address] PCP - General Internal Medicine 08/28/22 Tile Decorator Relationship Specialty Start Date End Date Mike Genao DO [address] [facility] [address] [place] [address] PCP - ACO Reach 08/20/22 Mike Genao DO [address] [address] PCP - General Internal Medicine 08/28/22 Tonya Bundy MD [address] [place] [id number] Referring Physician Urology 02/29/24 Goals (unrecognized section and content) Goals may [...] BE BASED ON THE PRIMARY CLINICAL RECORDS. [facility]. provides no warranty or guarantee of the accuracy or completeness of information in this document.
--- NOTE | 2024-05-13 02:43 | ED.GENADUL1 ---
HPI HPI - General Adult General Chief complaint: Nausea/Vomiting/Diarrhea Stated complaint: Nausea/Vomiting/Diarrhea Time Seen by Provider: 05/13/24 02:26 Source: patient Mode of arrival: walk-in Limitations: no limitations History of Present Illness HPI narrative: Patient presents with chief complaint of nausea and has had a few episodes of vomiting just prior to coming in and in the ER also. She has had 1 loose stool before she came in. She does not report any significant abdominal discomfort. In the last 3 weeks she has had some ankle swelling bilaterally. She denies shortness of breath or chest pain. Related Data Home Medications ?Medication ?Instructions ?Recorded ?Confirmed alprazolam 0.5 mg tablet 0.25 mg PO BID PRN anxiety 10/28/22 12/22/23 mirtazapine 15 mg tablet 15 mg PO BEDTIME 10/28/22 12/22/23 hydroxyzine pamoate 50 mg capsule 50 mg PO Q8H PRN anxiety 05/10/23 12/22/23 atorvastatin 10 mg tablet mg 05/13/24 Previous Rx's ?Medication ?Instructions ?Recorded ondansetron 4 mg disintegrating 4 mg PO Q6H PRN Nausea And 05/13/24 tablet Vomiting #10 tabs pantoprazole 40 mg tablet,delayed 40 mg PO DAILY #20 tabs 05/13/24 release (Protonix) Allergies Allergy/AdvReac Type Severity Reaction Status Date / Time codeine Allergy Intermediate Gastrointestinal Verified 12/22/23 04:52 Upset Opioid HPI Opioid Management Most Recent Opioid Data: Last Pain Scale 2 12/22/23 08:04 12/22/23 PFSH PFSH Social History Smoking status: Current every day smoker Little interest or pleasure in doing things: not at all Feeling down, depressed, or hopeless: not at all Exam Narrative Exam Narrative: I examined the patient right after she had just vomited in the treatment area. She was starting to feel better. She was mildly tachycardic the rest of the vitals being stable. HEENT exam is normal to inspection. Neck is supple. Lung sounds are clear without evidence of failure. Heart has regular rate and rhythm. Abdomen soft with mild upper abdominal tenderness but without guarding or peritoneal signs. She does not have a positive [place] sign. No organomegaly is detected. Patient does not have unilateral leg swelling but has 1+ ankle edema bilaterally. Speech and mentation are clear and intact. There is no facial asymmetry. She moves all extremities actively. Constitutional Vital Signs, click to edit/add: Last Vital Signs Temp 98.1 F 05/13/24 02:27 Pulse 115 H 05/13/24 02:27 Resp 18 05/13/24 02:27 BP 140/78 05/13/24 02:44 Pulse Ox 94 L 05/13/24 02:27 O2 Del Method Room Air 05/13/24 02:27 Course Vital Signs Vital signs: Vital Signs Temperature 98.1 F 05/13/24 02:27 Pulse Rate 115 H 05/13/24 02:27 Respiratory Rate 18 05/13/24 02:27 Pulse Oximetry 94 L 05/13/24 02:27 Oxygen Delivery Method Room Air 05/13/24 02:27 Temperature 98.1 F 05/13/24 02:27 Pulse Rate 115 H 05/13/24 02:27 Respiratory Rate 18 05/13/24 02:27 Blood Pressure 140/78 05/13/24 02:44 Pulse Oximetry 94 L 05/13/24 02:27 Oxygen Delivery Method Room Air 05/13/24 02:27 Medical Decision Making MDM Narrative Medical decision making narrative: Patient was treated with IV Zofran and has not had any more recurrence of vomiting. She has a normal white cell count of 10.2 and normal hemoglobin of 14.6. Electrolytes and kidney function are within normal limits. AST slightly elevated at 45 and there is a slight bump in the alkaline phosphatase at 159. Lipase is normal at 45. Urinalysis did not show signs of infection. CT scan of the abdomen pelvis reported splenomegaly but on physical exam she does not have a palpable spleen. She will require workup for the splenomegaly and this can be performed by her PCP with appropriate referrals as needed. Patient is also mentioning that she has a history of heart failure and I have advised that she see cardiology follow-up for further evaluation of this. She feels well enough to go home now and is placed on Zofran and Protonix and has been instructed to return anytime for worsening symptoms Lab Data Labs: Lab Results 05/13/24 05/13/24 Range/Units 02:40 05:00 WBC 10.2 (4.0-11.0) 10^3/uL RBC 4.91 (4.20-5.40) 10^6/uL Hgb 14.6 (12.0-16.0) g/dL Hct 43.1 (36.0-48.0) % MCV 87.8 (81.0-99.0) fL MCH 29.7 (26.7-34.0) pg MCHC 33.9 (29.9-35.2) g/dL RDW 13.2 (11.0-15.0) % Plt Count 167 (150-450) 10^3/uL MPV 10.0 (9.5-13.5) fL Neut % (Auto) 76.4 H (43.0-75.0) % Lymph % (Auto) 11.7 L (20.5-60.0) % [place] % (Auto) 8.9 (1.7-12.0) % Eos % (Auto) 1.4 (0.9-7.0) % Baso % (Auto) 1.1 (0.2-2.0) % Neut # (Auto) 7.8 H (1.4-6.5) 10^3/uL Lymph # (Auto) 1.2 (1.2-3.8) 10^3/uL [place] # (Auto) 0.9 H (0.3-0.8) 10^3/uL Eos # (Auto) 0.1 (0.0-0.7) 10^3/uL Baso # (Auto) 0.1 (0.0-0.1) 10^3/uL Abs Immat Gran (auto) 0.05 H (0.00-0.03) 10^3/uL Imm/Tot Granulo (auto) 0.5 (0.0-0.5) % Sodium 143 (136-145) mmol/L Potassium 3.7 (3.5-5.1) mmol/L Chloride 105 (98-107) mmol/L Carbon Dioxide 27.5 (21.0-32.0) mmol/L Anion Gap 14.2 BUN 18.0 (7.0-18.0) mg/dL Creatinine 0.74 (0.55-1.02) mg/dL Est GFR ( Amer) >60 (>=60 mL/min/1.73m^2) Est GFR (Non-Af Amer) >60 (>=60 mL/min/1.73m^2) BUN/Creatinine Ratio 24.3 Glucose 134 H (74-106) mg/dL Lactate 1.2 (0.4-2.0) mmol/L Calcium 8.6 (8.5-10.1) mg/dL Total Bilirubin 0.9 (0.2-1.0) mg/dL AST 45 H (15-37) U/L ALT 36 (14-59) U/L Alkaline Phosphatase 159 H (46-116) U/L Total Protein 7.3 (6.4-8.2) g/dL Albumin 3.2 L (3.4-5.0) g/dL Globulin 4.1 g/dL Albumin/Globulin Ratio 0.8 Lipase 45.0 (16.0-77.0) U/L Urine Color Yellow (YELLOW) Urine Clarity Sl cloudy (CLEAR) Urine pH 6.0 (5.0-9.0) Ur Specific [place] 1.025 (1.005-1.025) Urine Protein Negative (NEG/TRACE) mg/dL Urine Glucose (UA) Negative (NEGATIVE) mg/dL Urine Ketones Trace A (NEGATIVE) mg/dL Urine Occult Blood Negative (NEGATIVE) Urine Nitrite Negative (NEGATIVE) Urine Bilirubin Negative (NEGATIVE) Urine Urobilinogen 4.0 A (0.2-1.0) EU/dL Ur Leukocyte Esterase Trace A (NEGATIVE) Urine RBC 0-2 (0-2) #/HPF Urine WBC 0-2 A (NONE SEEN) #/HPF Ur Squamous Epith Cells Many A (NONE/RARE) #/LPF Urine Crystals None seen (None Seen) #/HPF Urine Bacteria Trace A (NONE SEEN) #/HPF Urine Casts None seen (NONE SEEN) #/LPF Urine Mucus Small A (NONE SEEN) Discharge Plan Discharge Chief Complaint: Nausea/Vomiting/Diarrhea Clinical Impression: Splenomegaly, Ankle edema, bilateral Nausea & vomiting Qualifiers: Vomiting type: unspecified Qualified Code(s): R11.2 - Nausea with vomiting, unspecified Patient Disposition: Home, Self-Care Time of Disposition Decision: 06:03 Condition: Good Mode of Transportation: Private Vehicle Prescriptions / Home Meds: New pantoprazole [Protonix] 40 mg tablet,delayed release (DR/EC) 40 mg PO DAILY Qty: 20 0RF ondansetron 4 mg tablet,disintegrating 4 mg PO Q6H PRN (Reason: Nausea And Vomiting) Qty: 10 0RF No Action alprazolam 0.5 mg tablet 0.25 mg PO BID PRN (Reason: anxiety) mirtazapine 15 mg tablet 15 mg PO BEDTIME atorvastatin 10 mg tablet hydroxyzine pamoate 50 mg capsule 50 mg PO Q8H PRN (Reason: anxiety) Print Language: Vietnamese Instructions: Acute Nausea and Vomiting (ED) Additional Instructions: Liquid diet for 24 hours. Thereafter, advance diet as tolerated avoiding greasy foods. Contact your PCP after the weekend for reevaluation and workup of enlarged spleen found on CT scan of the abdomen. Follow-up with medical assembly for further workup of swelling of the ankles. Return for worsening symptoms. Referrals: Brian Borrego MD [Physician] - As soon as possible MIKE GENAO [Primary Care Provider] - As soon as possible
[2024-05-13 02:44] VITALS: BP 140/78
--- NOTE | 2024-05-13 02:44 | CT_ITS ---
The [address] [address] Patient Name: TORIE ERVIN MRN: [id number] date: 1950 Sex: F Assigned Patient Location: ER Current Patient Location: ER Accession/Order Number: [id number] Exam Date: 05/13/2024 02:58 Report Date: 05/13/2024 04:52 At the request of: SCOUT ORTIZ Procedure: CT abdomen pelvis wo con EXAM: CT abdomen pelvis wo con HISTORY: Vomiting COMPARISON: CT chest examination dated 10/28/2022. TECHNIQUE: Noncontrast axial CT images through the abdomen and pelvis were obtained after the intravenous administration of contrast. Dose reduction techniques were achieved by using automated exposure control and/or adjustment of mA and/or kV according to patient size and/or use of iterative reconstruction technique. FINDINGS: There is a stable, likely benign 0.3 cm nodule in the right middle lobe (series 3, image 1). There is mild bibasilar linear atelectasis and/or scarring. There is a stable, likely benign 0.4 cm nodule in the left lower lobe (series 3, image 4). There is a stable, likely benign 0.3 cm nodule in the right lower lobe (series 3, image 7). Abdomen: Please note that the sensitivity for detection of focal lesions or vascular disease is markedly reduced without intravenous contrast. The spleen is enlarged measuring up to 15.8 cm. The liver is unremarkable. There is no intra or extrahepatic biliary duct dilatation. The gallbladder is surgically absent. There is a 2 mm nonobstructive right renal calculus. There is a right extrarenal pelvis. There is a subcentimeter hemorrhagic or proteinaceous left renal cyst. There is colonic diverticulosis without evidence of acute inflammation. The appendix is not seen. Otherwise, the pancreas, adrenal glands, kidneys, and bowel loops are unremarkable. There is no mesenteric or retroperitoneal lymphadenopathy. Pelvis: The bladder and rectum are unremarkable. There is no iliac or inguinal lymphadenopathy. The patient is status post a hysterectomy. There is advanced atherosclerotic disease. Bone windows show no aggressive osseous lesions. There is a remote-appearing insufficiency fracture involving the superior endplate of L1. CT/CT abdomen pelvis wo con IMPRESSION: 1. No evidence of bowel obstruction. 2. Splenomegaly. 3. Nonobstructive right renal calculus. 4. Colonic diverticulosis without evidence of acute inflammation. 5. Status post hysterectomy, cholecystectomy, and possible appendectomy as the appendix is not seen. Electronically authenticated by: Radha GRANGER Date: 05/13/2024 04:52
[2024-05-13 02:59] LABS: Basophils Absolute Auto 0.1 10^3/uL (0.0-0.1); Basophils Percent Auto 1.1 % (0.2-2.0); Eosinophils Absolute Auto 0.1 10^3/uL (0.0-0.7); Eosinophils Percent Auto 1.4 % (0.9-7.0); Hematocrit 43.1 % (36.0-48.0); Hemoglobin 14.6 g/dL (12.0-16.0); Immature Granulocytes Abs Auto 0.05 10^3/uL (0.00-0.03); Immature Granulocytes Pct Auto 0.5 % (0.0-0.5); Lymphocytes Absolute Auto 1.2 10^3/uL (1.2-3.8); Lymphocytes Percent Auto 11.7 % (20.5-60.0); Mean Corpuscular HGB Conc 33.9 g/dL (29.9-35.2); Mean Corpuscular Hemoglobin 29.7 pg (26.7-34.0); Mean Corpuscular Volume 87.8 fL (81.0-99.0); Monocytes Absolute Auto 0.9 10^3/uL (0.3-0.8); Monocytes Percent Auto 8.9 % (1.7-12.0); Neutrophils Absolute Auto 7.8 10^3/uL (1.4-6.5); Neutrophils Percent Auto 76.4 % (43.0-75.0); Platelet Count 167 10^3/uL (150-450); Red Blood Count 4.91 10^6/uL (4.20-5.40); Red Cell Distribution Width 13.2 % (11.0-15.0); White Blood Count 10.2 10^3/uL (4.0-11.0)
[2024-05-13] MEDS: 0.9 % SODIUM CHLORIDE 1,000 ML 125 ML IV (03:00)
[2024-05-13] MEDS: ONDANSETRON PF 4 MG/2 ML VIAL IV ×2 (03:00→03:48)
[2024-05-13 03:18] LABS: Alanine Aminotransferase 36 U/L (14-59); Albumin Globulin Ratio 0.8; Albumin Level 3.2 g/dL (3.4-5.0); Alkaline Phosphatase 159 U/L (46-116); Anion Gap 14.2; Aspartate Amino Transferase 45 U/L (15-37); BUN Creatinine Ratio 24.3; Bilirubin Total 0.9 mg/dL (0.2-1.0); Calcium 8.6 mg/dL (8.5-10.1); Carbon Dioxide 27.5 mmol/L (21.0-32.0); Chloride 105 mmol/L (98-107); Estimated GFR (African America >60 (>=60 mL/min/1.73m^2); Estimated GFR (Non-African Ame >60 (>=60 mL/min/1.73m^2); Globulin 4.1 g/dL; Glucose 134 mg/dL (74-106); Potassium 3.7 mmol/L (3.5-5.1); Sodium 143 mmol/L (136-145); Total Protein 7.3 g/dL (6.4-8.2)
[2024-05-13 03:20] LABS: Lactate/Lactic Acid 1.2 mmol/L (0.4-2.0)
[2024-05-13 05:24] LABS: Bilirubin Urine NEGATIVE (NEGATIVE); Blood Urine NEGATIVE (NEGATIVE); Clarity Urine SL CLOUDY (CLEAR); Color Urine YELLOW (YELLOW); Glucose Urine UA NEGATIVE (NEGATIVE); Ketones Urine TRACE mg/dL (NEGATIVE); Leukocyte Esterase Urine TRACE (NEGATIVE); Nitrite Urine NEGATIVE (NEGATIVE); Protein Urine NEGATIVE (NEG/TRACE); Specific Gravity Urine 1.025 (1.005-1.025)
[2024-05-13 05:34] LABS: Urine Microscopic Indicated YES
[2024-05-13 05:36] LABS: Bacteria Urine TRACE #/HPF (NONE SEEN); Cast Seen? NONE SEEN #/LPF (NONE SEEN); Crystals Seen? None Seen #/HPF (None Seen); Mucus Urine SMALL (NONE SEEN); RBC Urine 0-2 #/HPF (0-2); Squamous Epithelial Cell Urine MANY #/LPF (NONE/RARE); WBC Urine 0-2 #/HPF (NONE SEEN)
== END 2024-05-13 06:15 | disposition home or self-care (01) ==
PROVIDERS: Emergency Provider Emergency Medicine; PCP Internal Medicine
DX: R11.2 Nausea with vomiting, unspecified (principal); F17.200 Nicotine dependence, unspecified, uncomplicated; Z90.49 Acquired absence of other specified parts of digestive tract; R16.1 Splenomegaly, not elsewhere classified; Z90.710 Acquired absence of both cervix and uterus; K57.30 Diverticulosis of large intestine without perforation or abscess without bleeding
CPT/HCPCS: 36415; 74176; 80053; 81001; 83605; 83690; 85025; 96361; 96374; 96376; 99284; J2405

== ENCOUNTER 2024-06-07 08:09 | Outpatient (OUT) | payer MEDICARE, SELFPAY ==
--- NOTE | 2024-06-07 08:11 | US_ITS ---
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 Right flank pain. COMPARISON: CT 05/13/2024 Estimation of renal size is approximately 10.4 cm on the right and 12.0 cm on the left. A tiny 3 mm stone is not excluded the midpole on the right.. No hydronephrosis is present on the left. On the right, there is hydronephrosis with prominent dilatation of the renal pelvis. No renal mass lesions were imaged. There is no perinephric fluid. The urinary bladder is partially distended with a volume of 300 mL. No contour or intraluminal abnormalities are seen. US/US renal BI IMPRESSION: POTENTIAL RIGHT NEPHROLITHIASIS. RIGHT HYDRONEPHROSIS. Impression dictated by: Gely Rojas M.D.06/07/2024 9:25 AM Dictation Location: [place] [address] Electronically authenticated by: [id number] Y Date: 06/07/2024 09:25
== END 2024-06-07 08:10 | disposition home or self-care (01) ==
LOC: US 08:09
PROVIDERS: PCP Internal Medicine; Visit Provider Nurse Practitioner Family
DX: Q62.11 Congenital occlusion of ureteropelvic junction (principal); N13.30 Unspecified hydronephrosis
CPT/HCPCS: 76775